=== PATIENT | female | born 1990 | race Caucasian/White ===

== ENCOUNTER 2023-04-19 15:40 | Emergency (ER) | payer MEDICAID, SELFPAY ==
[2023-04-19 15:47] VITALS: BP 122/72; PULSE 97; O2SAT 99
== END 2023-04-19 17:17 | disposition left against medical advice (07) ==
PROVIDERS: Emergency Provider Emergency Medicine
DX: S41.102A Unspecified open wound of left upper arm, initial encounter (principal); X58.XXXA Exposure to other specified factors, initial encounter; Y93.9 Activity, unspecified; Y92.9 Unspecified place or not applicable; Y99.9 Unspecified external cause status

== ENCOUNTER 2023-04-25 05:20 | Emergency (ER) | payer MEDICAID, SELFPAY ==
[2023-04-25] VITALS (7 sets, daily range): BP systolic 107–135; BP diastolic 52–74; PULSE 58–89; RESP 12–18; TEMP 36.2–36.3; O2SAT 95–98; BMI 18.8
--- NOTE | ~2023-04-25 | XR_ITS ---
EXAMINATION: XR LUMBOSACRAL SPINE CLINICAL INFORMATION: Trauma, pain, tenderness. COMPARISON: None available. TECHNIQUE: Three views of the lumbosacral spine. FINDINGS: The lumbar vertebra have normal height and alignment. No evidence of vertebral compression fracture or pars interarticularis defect. The disc spaces are maintained. No endplate erosions or lytic lesions. Sacroiliac joints are normal. There is generalized prominence of fecal material within the colon to level the rectum. Query if there is any history of constipation. XR/XR lumbar spine 2-3V IMPRESSION: * Normal lumbosacral spine. * Incidentally noted is moderate to large amount of fecal material within the colon. Correlate for any clinical symptoms of constipation.
--- NOTE | 2023-04-25 05:47 | PC.NURSE ---
pt biba from an apartment complex where she reports she had been visiting a friend. pt reports she was unable to stand any longer and reports falling down 2 flights of stairs. pt reports middle and lower back pain after fall. ems placed c collar on pt. pt reports using heroin and cocaine hours ago prior to admission. pt lethargic but wakes to name. pt noted to have bilateral forearm wounds due to using xylazine. pt reports she is not being treated for these wounds.
[2023-04-25 09:23] LABS: MANUAL DIFF FLAG NO
[2023-04-25 09:25] LABS: Basophils Percent Auto 0.2 % (0-2); Eosinophils Absolute Auto 0.1 X10*3/uL (0.0-0.4); Eosinophils Percent Auto 1.4 % (0-4); Hematocrit 32.9 % (37.0-47.0); Hemoglobin 10.5 g/dl (12.0-16.0); Imm Gran Abs Auto 0.01 X10*3/uL (0.00-0.03); Imm Gran Pct Auto 0.2 % (0.0-0.4); Lymphocytes Absolute Auto 2.3 X10*3/uL (1.2-4.9); Lymphocytes Percent Auto 34.5 % (20-40); Mean Corpuscular HGB Conc 31.9 g/dl (31.0-35.0); Mean Corpuscular Hemoglobin 25.1 pg (27.0-33.0); Mean Corpuscular Volume 78.5 fL (80.0-98.0); Mean Platelet Volume 9.1 fL (9.4-12.3); Monocytes Absolute Auto 0.4 X10*3/uL (0.1-1.2); Monocytes Percent Auto 5.8 % (2-11); Neutrophils Absolute Auto 3.8 x10*3/uL (2.0-8.3); Neutrophils Percent Auto 57.9 % (45-73); Platelet Count 379 X10*3/uL (160-400); Red Blood Count 4.19 X10*6/uL (4.20-5.50); Red Cell Distribution Width 15.9 % (11.0-16.0); White Blood Count 6.6 X10*3/uL (4.8-10.8)
[2023-04-25 09:29] LABS: INTERNATIONAL NORM RATIO 1.1 (0.9-1.1); Prothrombin Time 12.8 SEC (11.1-13.3)
[2023-04-25 09:40] LABS: Alanine Aminotransferase 11 U/L (0-31); Albumin Level 3.5 g/dL (3.5-5.0); Alkaline Phosphatase 68 U/L (39-117); Anion Gap 11 (12-20); Aspartate Amino Transferase 18 U/L (5-31); Bilirubin Direct < 0.2 mg/dL (0.0-0.5); Bilirubin Total 0.2 mg/dL (0.0-1.0); Blood Urea Nitrogen 13 mg/dL (9-16); Calcium 8.9 mg/dL (8.4-10.2); Carbon Dioxide 26 mmol/L (22-29); Chloride 106 mmol/L (96-108); Creatinine Clr Calc Pharmacy 110.1; Estimated Glomerular Filt Rate > 60; Glucose Random 89 mg/dL (60-115); Magnesium 1.8 mg/dL (1.6-2.6); Potassium 3.9 mmol/L (3.3-5.1); Sodium 139 mmol/L (135-145); Total Protein 7.5 g/dL (6.5-8.0)
[2023-04-25 09:50] LABS: Ethanol < 10 mg/dL; HCG Quantitative < 2 mIU/mL
--- NOTE | 2023-04-25 10:18 | ED_ITS ---
HPI - General Adult General Chief complaint: Back Pain/Injury Stated complaint: back pain Time Seen by Provider: 04/25/23 06:56 History of Present Illness HPI narrative: The patient is a 32-year-old woman who admits to using IV drugs including heroin, cocaine, and xylazine. Apparently she was at a friend's apartment last night. She says that she fell down stairs in the stairwell injuring her lower back. An ambulance was called because she was having a lot of pain in her lower back. She has a lot of chronic wounds on her forearms from her drug use. She has had no fevers. Related Data Allergies Allergy/AdvReac Type Severity Reaction Status Date / Time No Known Allergies Allergy Verified 04/25/23 05:38 Review of Systems 2 Review of Systems: Yes all other systems are reviewed and are negative [facility] Social History Social History Smoked in Last 30 Days: Yes Use of substances other than those prescribed or required for medical reasons: Yes Substance Use Type: Crack/Cocaine and Heroin Substance Use Frequency: Daily Last Used Substance: Hours (ago) Patient : No Physical Exam ED Vital Signs: Vital Signs - 24 hr 04/25/23 05:39 04/25/23 08:28 04/25/23 14:22 Temperature 97.1 F Pulse Rate 58 71 82 Respiratory Rate 18 16 12 Blood Pressure 135/55 L 116/52 L 109/67 Pulse Oximetry 98 95 96 Oxygen Delivery Method Room Air Room Air Room Air 04/25/23 15:49 Temperature 97.2 F Pulse Rate 72 Respiratory Rate 16 Blood Pressure 107/65 Pulse Oximetry 97 Oxygen Delivery Method BMI result Body Mass Index 18.8 Const Other: The patient is a somnolent, very chronically ill-appearing 32-year-old. She has extensive scars and wounds to her forearms. She was quite somnolent initially and they required a significant amount of stimulation to arouse her. When aroused she was awake with a clear mental status but she would fall asleep quite quickly. HENMT Other: The appearance of the face and the mouth were unremarkable. Mucous membranes moist. The Eyes Other: Pupils round equal, conjunctivae clear, extraocular movements intact Neck Other: No cervical adenopathy, no neck swelling. Resp Other: Lungs are clear bilaterally. Cardio Other: The patient has regular rate rhythm with no murmur. GI Other: Abdomen is soft and nontender Back/Spine/Pelvis Other: The appearance of the back is unremarkable. She has diffuse lower back tenderness with palpation but no step-off. No bruising. No signs of injury. Skin Other: The patient has extensive chronic skin changes to the forearms consistent with old wounds from IV drug use. Neuro Other: The patient was sleepy but arousable. Cranial nerves are intact. She is able to move all of her extremities symmetrically. She was able to walk steadily. She seems quite fatigued but otherwise neurologically intact. Extrem Other: Both forearms have extensive skin changes consistent with previous IV drug use. No acute erythematous changes to suggest an acute skin infection however. There is good range of motion of all the joints of the extremities. Medical Decision Making Medical Decision Making [facility] Narrative: The patient is a 32-year-old female with a long history of IV drug use. She admits to having used heroin and cocaine and xylazine. Her chief complaint was low back pain after having fallen down some stairs. She was not showing signs of significant trauma. Her back shows no bruising. A lumbar spine x-ray is negative. The patient was somnolent for a long time but was eventually more awake and interview oval. She was also ultimately able to walk to the bathroom. I do not feel that she has any neurological findings in her lower extremities that would suggest any neurosurgical problem with her lower back. She has a normal white count differential. She is not tachycardic. There is no signs of significant infection or sepsis. I felt the patient was medically clear for evaluation by the care team. Patient is requesting assistance with detox. Specifically the patient was interested methadone. The patient was not interested in Suboxone. An EKG was done that showed a QTC of 468. The patient was then given 20 mg of oral methadone. She was seen by the the recovery nurse and the patient has been on the phone with [facility] for intake and the plan will be for her to go there at 21:00 tonight. Apparently she will go by Dieter noel Lab Data 04/25/23 09:18 04/25/23 09:18 Labs: Lab Results 04/25/23 04/25/23 Range/Units 09:18 10:58 WBC 6.6 (4.8-10.8) X10*3/uL RBC 4.19 L (4.20-5.50) X10*6/uL Hgb 10.5 L (12.0-16.0) g/dl Hct 32.9 L (37.0-47.0) % MCV 78.5 L (80.0-98.0) fL MCH 25.1 L (27.0-33.0) pg MCHC 31.9 (31.0-35.0) g/dl RDW 15.9 (11.0-16.0) % Plt Count 379 (160-400) X10*3/uL MPV 9.1 L (9.4-12.3) fL Immature Gran % (Auto) 0.2 (0.0-0.4) % Neut % (Auto) 57.9 (45-73) % Lymph % (Auto) 34.5 (20-40) % [place] % (Auto) 5.8 (2-11) % Eos % (Auto) 1.4 (0-4) % Baso % (Auto) 0.2 (0-2) % Lymph # (Auto) 2.3 (1.2-4.9) X10*3/uL [place] # (Auto) 0.4 (0.1-1.2) X10*3/uL Eos # (Auto) 0.1 (0.0-0.4) X10*3/uL Baso # (Auto) 0.0 (0.0-0.2) X10*3/uL Abs Immat Gran (auto) 0.01 (0.00-0.03) X10*3/uL Absolute Neuts (auto) 3.8 (2.0-8.3) x10*3/uL Absolute Nucleated RBC 0.000 (0.0-0.012) X10*3/uL Nucleated RBC % (auto) 0.0 (0.0-0.2) /100WBC PT 12.8 (11.1-13.3) SEC INR 1.1 (0.9-1.1) Sodium 139 (135-145) mmol/L Potassium 3.9 (3.3-5.1) mmol/L Chloride 106 (96-108) mmol/L Carbon Dioxide 26 (22-29) mmol/L Anion Gap 11 L (12-20) BUN 13 (9-16) mg/dL Creatinine 0.63 (0.5-1.4) mg/dL Estim Creat Clear Calc 110.1 Estimated GFR > 60 Random Glucose 89 (60-115) mg/dL Calcium 8.9 (8.4-10.2) mg/dL Magnesium 1.8 (1.6-2.6) mg/dL Total Bilirubin 0.2 (0.0-1.0) mg/dL Direct Bilirubin < 0.2 (0.0-0.5) mg/dL AST 18 (5-31) U/L ALT 11 (0-31) U/L Alkaline Phosphatase 68 (39-117) U/L Total Protein 7.5 (6.5-8.0) g/dL Albumin 3.5 (3.5-5.0) g/dL Beta HCG, Quant < 2 mIU/mL Ethyl Alcohol < 10 mg/dL Influenza Type A (PCR) NEGATIVE (Negative) Influenza Type B (PCR) NEGATIVE (Negative) RSV RNA Qual (PCR) NEGATIVE (Negative) SARS-CoV-2 RNA (RT-PCR) NEGATIVE (Negative) Discharge Plan Discharge Clinical Impression: Substance use disorder, Strain of lumbar region Patient Disposition: Home, Self-Care Additional Instructions: You have apparently been accepted for detox care at [facility] in [place]. Please go directly to the detox facility. Referrals: [facility] [Outside]
--- NOTE | 2023-04-25 10:29 | MHC.RECOVSUP ---
Met with pt who is here for back pain and GERRI. Pt informs she uses 2 bags of heroin a day IV and is not currently on MAT but was a long time ago, wanting to get back on MTD. Pt informs she was last getting treatment from being [place] [address] 2 months ago and is currently interested in ATS. ATS bed search in process and provider aware.
--- NOTE | 2023-04-25 10:40 | PC.NURSE ---
patient resting quietly in bed, arouses to verbal stimuli. patient respirations equal and unlabored, states she has slight stomach ache, scored 1 on COWS scale. patient has significant wounds to bilat arms from using iv drugs. recovery team contacted and involved with patients case.
[2023-04-25 12:21] LABS: Influenza A PCR NEGATIVE (Negative); Influenza B PCR NEGATIVE (Negative); Resp Syncy Virus RNA Qual PCR NEGATIVE (Negative); SARS COV2 PCR INHOUSE NEGATIVE (Negative)
--- NOTE | 2023-04-25 14:56 | MHC.RECOVRN ---
Pt accepted to [facility] pending phone screen. Awaiting call from intake.
--- NOTE | 2023-04-25 15:55 | ECG_ITS ---
Test Reason : back pain Blood Pressure : / mmHG Vent. Rate : 076 BPM Atrial Rate : 076 BPM P-R Int : 136 ms QRS Dur : 086 ms QT Int : 416 ms P-R-T Axes : 066 061 060 degrees QTc Int : 468 ms Normal sinus rhythm T wave abnormality, consider anterior ischemia Prolonged QT Abnormal ECG No previous ECGs available Referred By: Anthony Bradford Electronically Signed By:Julio C Kumar
--- NOTE | 2023-04-25 16:02 | MHC.RECOVRN ---
Pt currently completing phone screen with [facility], accepted for 9PM admission. Pt reporting withdrawal symptoms including upset stomach, nausea, diaphoresis, hot/cold flashes. Provider aware.
[2023-04-25] MEDS: Prochlorperazine Maleate 5 MG TABLET 10 MG PO (18:32)
[2023-04-25] MEDS: methADONE HCl 20 MG/2 ML ORAL.CONC PO (18:32)
== END 2023-04-25 21:42 | disposition home or self-care (01) ==
PROVIDERS: Emergency Provider Emergency Medicine
DX: S39.012A Strain of muscle, fascia and tendon of lower back, initial encounter (principal); W10.8XXA Fall (on) (from) other stairs and steps, initial encounter; F19.90 Other psychoactive substance use, unspecified, uncomplicated; R40.0 Somnolence; Z20.822 Contact with and (suspected) exposure to COVID-19; Z20.828 Contact with and (suspected) exposure to other viral communicable diseases; Y93.9 Activity, unspecified; Y92.9 Unspecified place or not applicable; Y99.9 Unspecified external cause status
CPT/HCPCS: 0241U; 36415; 72100; 80048; 80076; 80307; 83735; 84702; 85025; 85610; 93005; 99283; 99285

== ENCOUNTER → 2023-04-25 15:55 | Outpatient (BNV) | payer MEDICAID, SELFPAY | PROVIDERS: Emergency Provider Emergency Medicine; Visit Provider Internal Medicine Cardiovascular Disease | DX: I45.81 Long QT syndrome (principal) | CPT/HCPCS: 93010 ==

== ENCOUNTER 2023-07-21 18:39 | Emergency (ER) | payer MEDICAID, SELFPAY ==
--- NOTE | ~2023-07-21 | XR_ITS ---
EXAMINATION: XR FOOT, LEFT CLINICAL INFORMATION: Pain, evaluate for fracture. COMPARISON: None available. TECHNIQUE: AP, lateral, and oblique views of the left foot. FINDINGS: No fractures or subluxation. Diffuse nonspecific soft tissue swelling. No unexpected radiopaque foreign bodies. XR/XR foot LT 2V IMPRESSION: 1. No acute fractures or subluxation. 2. Nonspecific soft tissue swelling.
[2023-07-21 18:48] VITALS: BP 110/74; PULSE 70; O2SAT 99
[2023-07-21 18:49] VITALS: BP 110/68; PULSE 74; RESP 18; TEMP 36.9; O2SAT 98; BMI 22.9
--- NOTE | 2023-07-21 18:51 | ED_ITS ---
HPI - Extremity Problem General Chief complaint: General Medical Stated complaint: severe L foot pain, hx of addiction- infect of arm Time Seen by Provider: 07/21/23 18:51 Source: patient Mode of arrival: EMS Limitations: no limitations History of Present Illness HPI Narrative: Patient IVDA cocaine user with chronic infection in the left forearm which is healing with scabs says that she stopped using drugs for last 2 days noticed pain swelling of the left foot was wearing tight shoes no trauma Related Data Previous Rx's Medication Instructions Recorded cephalexin 500 mg capsule 500 mg PO QID 10 days #40 caps 07/21/23 doxycycline hyclate 100 mg tablet 100 mg PO BID #20 tabs 07/21/23 Allergies Allergy/AdvReac Type Severity Reaction Status Date / Time No Known Allergies Allergy Verified 04/25/23 05:38 Review of Systems 2 Review of Systems: Yes all other systems are reviewed and are negative [facility] Social History Social History Alcohol intake: never Smoked in Last 30 Days: Yes Substance Use Type: Crack/Cocaine, Heroin and IV Drugs Last Used Substance: Days (ago) Advance Directives: No Advance Directives Information Provided: No Physical Exam 2 Vital Signs: Vital Signs: Last Vital Signs Temp 98.0 F 07/21/23 21:01 Pulse 80 07/21/23 21:01 Resp 16 07/21/23 21:01 BP 120/70 07/21/23 21:01 Pulse Ox 99 07/21/23 21:01 O2 Del Method Room Air 07/21/23 21:01 BMI result Body Mass Index 22.9 Appearance: Alert. Oriented X3. No acute distress. Eyes: PERRLA, No Nystagmus ENT: Pharynx normal. Oral Mucosa moist Neck: Normal inspection. Neck supple. CVS: Normal heart rate and rhythm. Pulses normal. Respiratory: No respiratory distress. Equal air entry bilateral, no wheezing/rales/rhonchi Abdomen: Soft and nontender. Bowel sounds are present, no mass palpable, no CVA tenderness Skin: Skin warm and dry. Normal skin color. Normal skin turgor. Extremities: No lower extremity edema. No calf tenderness left forearm with scabs no active signs of infection, left foot soft tissue swelling no open wound neurovascular intact Neuro: Oriented X 3. No motor deficit. No sensory deficit.No cerebellar signs , cranial nerves II-XII intact Medications Administered Discontinued Medications Generic Name Dose Route Start Last Admin Trade Name Juanq PRN Reason Stop Dose Admin Cephalexin HCl 500 mg 07/21/23 19:56 07/21/23 20:25 Cephalexin 500 Mg Capsule PO 07/21/23 19:57 500 mg ONCE ONE Administration Doxycycline Monohydrate 100 mg 07/21/23 19:56 07/21/23 20:25 Doxycycline Monohydrate 100 Mg Capsule PO 07/21/23 19:57 100 mg ONCE ONE Administration Medical Decision Making Medical Decision Making [facility] Narrative: Patient with soft tissue swelling of the left foot likely from standing or lying on the left foot for long time no significant signs of infection x-ray negative labs are stable slight leukocytosis from chronic wound on the left forearm will give a prescription of doxy and cephalexin Differential Diagnosis Differential Diagnoses: The differential diagnosis associated with the presentation includes Cellulitis/fracture/soft tissue swelling Lab Data [facility] Lab Attestation statement: I reviewed the patient's lab results. 07/21/23 19:24 07/21/23 19:24 Labs: Lab Results 07/21/23 Range/Units 19:24 WBC 14.7 H (4.8-10.8) X10*3/uL RBC 4.27 (4.20-5.50) X10*6/uL Hgb 11.2 L (12.0-16.0) g/dl Hct 34.8 L (37.0-47.0) % MCV 81.5 (80.0-98.0) fL MCH 26.2 L (27.0-33.0) pg MCHC 32.2 (31.0-35.0) g/dl RDW 17.6 H (11.0-16.0) % Plt Count 279 D (160-400) X10*3/uL MPV 9.3 L (9.4-12.3) fL Immature Gran % (Auto) 1.0 H (0.0-0.4) % Neut % (Auto) 79.7 H (45-73) % Lymph % (Auto) 14.3 L (20-40) % [place] % (Auto) 4.1 (2-11) % Eos % (Auto) 0.5 (0-4) % Baso % (Auto) 0.4 (0-2) % Lymph # (Auto) 2.1 (1.2-4.9) X10*3/uL [place] # (Auto) 0.6 (0.1-1.2) X10*3/uL Eos # (Auto) 0.1 (0.0-0.4) X10*3/uL Baso # (Auto) 0.1 (0.0-0.2) X10*3/uL Abs Immat Gran (auto) 0.14 H (0.00-0.03) X10*3/uL Absolute Neuts (auto) 11.7 H (2.0-8.3) x10*3/uL Absolute Nucleated RBC 0.000 (0.0-0.012) X10*3/uL Nucleated RBC % (auto) 0.0 (0.0-0.2) /100WBC Sodium 137 (135-145) mmol/L Potassium 4.2 (3.3-5.1) mmol/L Chloride 105 (96-108) mmol/L Carbon Dioxide 27 (22-29) mmol/L Anion Gap 9 L (12-20) BUN 23 H (9-16) mg/dL Creatinine 0.80 (0.5-1.4) mg/dL Estim Creat Clear Calc 83.5 Estimated GFR > 60 Random Glucose 72 (60-115) mg/dL Lactic Acid 1.0 (0.5-2.0) mmol/L Calcium 9.0 (8.4-10.2) mg/dL Total Bilirubin 0.3 (0.0-1.0) mg/dL AST 32 H (5-31) U/L ALT 52 H (0-31) U/L Alkaline Phosphatase 255 H (39-117) U/L C-Reactive Protein 30.01 H (< or = 0.50) mg/dL Total Protein 8.5 H (6.5-8.0) g/dL Albumin 3.5 (3.5-5.0) g/dL Independent Interpretation I performed an independent interpretation of an: Plain X-Ray Radiology Impression Discussion of test interpretation with radiology: I have reviewed the radiologist's reading. Discharge Plan Discharge Clinical Impression: Foot pain, Polysubstance abuse Patient Disposition: Home, Self-Care Instructions: Polysubstance Abuse (ED), Musculoskeletal Pain (ED) Additional Instructions: Stop using drugs Do not stand on your left food for long time Antibiotic as prescribed for to avoid infection Prescriptions: New cephalexin 500 mg capsule 500 mg PO QID 10 Days Qty: 40 0RF doxycycline hyclate 100 mg tablet 100 mg PO BID Qty: 20 0RF Interventions: ED Discharge Assessment Last Done: 07/21/23 21:01 Discharge Date/Time: 07/21/23 21:03
[2023-07-21 19:31] LABS: MANUAL DIFF FLAG NO
[2023-07-21 19:40] LABS: Basophils Absolute Auto 0.1 X10*3/uL (0.0-0.2); Basophils Percent Auto 0.4 % (0-2); Eosinophils Absolute Auto 0.1 X10*3/uL (0.0-0.4); Eosinophils Percent Auto 0.5 % (0-4); Hematocrit 34.8 % (37.0-47.0); Hemoglobin 11.2 g/dl (12.0-16.0); Imm Gran Abs Auto 0.14 X10*3/uL (0.00-0.03); Lymphocytes Absolute Auto 2.1 X10*3/uL (1.2-4.9); Lymphocytes Percent Auto 14.3 % (20-40); Mean Corpuscular HGB Conc 32.2 g/dl (31.0-35.0); Mean Corpuscular Hemoglobin 26.2 pg (27.0-33.0); Mean Corpuscular Volume 81.5 fL (80.0-98.0); Mean Platelet Volume 9.3 fL (9.4-12.3); Monocytes Absolute Auto 0.6 X10*3/uL (0.1-1.2); Monocytes Percent Auto 4.1 % (2-11); Neutrophils Absolute Auto 11.7 x10*3/uL (2.0-8.3); Neutrophils Percent Auto 79.7 % (45-73); Platelet Count 279 X10*3/uL (160-400); Red Blood Count 4.27 X10*6/uL (4.20-5.50); Red Cell Distribution Width 17.6 % (11.0-16.0); White Blood Count 14.7 X10*3/uL (4.8-10.8)
[2023-07-21 19:47] LABS: Alanine Aminotransferase 52 U/L (0-31); Albumin Level 3.5 g/dL (3.5-5.0); Alkaline Phosphatase 255 U/L (39-117); Anion Gap 9 (12-20); Aspartate Amino Transferase 32 U/L (5-31); Bilirubin Total 0.3 mg/dL (0.0-1.0); Blood Urea Nitrogen 23 mg/dL (9-16); C Reactive Protein 30.01 mg/dL (< or = 0.50); Carbon Dioxide 27 mmol/L (22-29); Chloride 105 mmol/L (96-108); Creatinine Clr Calc Pharmacy 83.5; Estimated Glomerular Filt Rate > 60; Glucose Random 72 mg/dL (60-115); Potassium 4.2 mmol/L (3.3-5.1); Sodium 137 mmol/L (135-145); Total Protein 8.5 g/dL (6.5-8.0)
[2023-07-21] MEDS: Doxycycline Monohydrate 100 MG CAPSULE PO (20:25)
[2023-07-21] MEDS: cephALEXin 500 MG CAPSULE PO (20:25)
--- NOTE | 2023-07-21 20:40 | PC.NURSE ---
pt medicated per mar, tolerated well with water. pt noted to have multiple healing scabs to the left forearm and small healing scabs to the right forearm.
[2023-07-21 21:01] VITALS: BP 120/70; PULSE 80; RESP 16; TEMP 36.7; O2SAT 99
== END 2023-07-21 21:03 | disposition home or self-care (01) ==
PROVIDERS: Emergency Provider Internal Medicine
DX: M79.672 Pain in left foot (principal); F19.10 Other psychoactive substance abuse, uncomplicated; D72.829 Elevated white blood cell count, unspecified
CPT/HCPCS: 36415; 73620; 80053; 83605; 85025; 86140; 87040; 99283; 99284

== ENCOUNTER 2024-05-12 09:36 | Inpatient (IN) | payer MEDICAID, SELFPAY ==
[2024-05-12] VITALS (31 sets, daily range): BP systolic 79–119; BP diastolic 37–78; PULSE 82–123; RESP 18–31; TEMP 36.4–37; O2SAT 92–94; BMI 21.5
--- NOTE | ~2024-05-12 | MR_ITS ---
CLINICAL HISTORY: epidural abscess MR LUMBAR SPINE WITH AND WITHOUT GADOLINIUM Comparison: MR - MR LUMBAR SPINE WO CON - 05/12/24 16:[address]/SR - CT ABDOMEN PELVIS WO IV CON - 05/12/24 13:29 EST Findings: There is significant motion artifact limiting evaluation. No scoliosis or spondylolisthesis. No acute fracture or pathologic bone lesion. Cauda equina and conus medullaris are grossly unremarkable. T12-L1: Unremarkable. L1-L2: Unremarkable. L2-L3: Unremarkable. L3-L4: Unremarkable. L4-L5: Shallow disc displacement. Facet arthrosis. No significant spinal stenosis. Mild bilateral neural foraminal stenoses. L5-S1: Shallow disc displacement. Facet arthrosis. No significant spinal stenosis. Moderate bilateral neural foraminal stenoses. Retroperitoneum grossly unremarkable. Paraspinous musculature intact. IMPRESSION: 1. Image degradation secondary to significant motion artifact. 2. No definite wall enhancing prevertebral or epidural fluid collection to suggest the presence of an abscess. 3. No evidence for discitis-osteomyelitis. 4. No large disc herniation or spinal stenosis. 5. Facet degenerative changes in the lower lumbar spine associated with stenoses, especially L5-S1. This document has been electronically signed by: Ashleigh Young DO on 05/12/2024 21:20:21
--- NOTE | ~2024-05-12 | MR_ITS ---
CLINICAL HISTORY: Sepsis, back pain, IV drug abuse, R O epidural abs MR LUMBAR SPINE WITHOUT GADOLINIUM Comparison: CT/SR - CT ABDOMEN PELVIS WO IV CON - 05/12/24 13:29 EST Findings: Valve Fitter tomograms were obtained however only a sagittal T1 FLAIR sequence was performed as the patient refused further imaging. No large epidural signal alteration. No significant spinal stenosis. No adjacent endplate destructive changes or signal alteration. Normal disc signal. IMPRESSION: Incomplete study as above. The study is nondiagnostic for an epidural abscess. This document has been electronically signed by: Ashleigh Young DO on 05/12/2024 18:08:08
--- NOTE | ~2024-05-12 | XR_ITS ---
CLINICAL HISTORY: c line placement 1 view chest x-ray Comparison: CR - XR CHEST 1V - 05/12/24 14:59 EST Findings: Multiple bilateral airspace opacities with lower lobe predominance, right greater than left, are again seen. There is a small right pleural effusion. No pneumothorax. Heart size is normal. Stable cardiomediastinal silhouette and bony thorax. IMPRESSION: Right central line tip is near the atriocaval junction. This document has been electronically signed by: Ashleigh Young DO on 05/12/2024 19:38:55
--- NOTE | ~2024-05-12 | XR_ITS ---
CLINICAL HISTORY: Pneumonia, coughing 1 view chest x-ray Comparison: None Findings: Patchy bilateral airspace densities. Probable trace effusions. No pneumothorax. Normal size heart. No acute fracture. IMPRESSION: Multifocal pneumonia. Follow-up recommended to ensure resolution. This document has been electronically signed by: Rik Casas MD on 05/12/2024 15:35:33
--- NOTE | ~2024-05-12 | CT_ITS ---
CLINICAL HISTORY: Diffuse abdominal pain CT abdomen and pelvis without contrast Comparison: None Findings: There is ill-defined patchy bibasilar consolidation suggestive of multifocal pneumonia. Trace right effusion. The unenhanced liver, spleen, gallbladder, adrenal glands and pancreas are unremarkable. Evaluation is limited based upon a relative paucity of mesenteric fat. No bowel obstruction. There is gas seen throughout mildly distended colon. There is mild engorgement of the vasa recta. No pneumatosis or free air. Uterus and adnexa are unremarkable. No acute osseous abnormality. Impression: Possible bibasilar pneumonia. Follow-up recommended to ensure resolution. Findings within the abdomen and pelvis are suggestive of enteritis. There is no free air, pneumatosis or abscess. This document has been electronically signed by: Rik Casas MD on 05/12/2024 13:58:21
--- NOTE | 2024-05-12 10:09 | ECG_ITS ---
Test Reason : TACHYCARDIA Blood Pressure : */* mmHG Vent. Rate : 123 BPM Atrial Rate : 123 BPM P-R Int : 114 ms QRS Dur : 90 ms QT Int : 364 ms P-R-T Axes : 71 64 40 degrees QTcB Int : 521 ms Sinus tachycardia Otherwise normal ECG When compared with ECG of 25-Apr-2023 16:17, Vent. rate has increased by 47 bpm T wave inversion no longer evident in Anterior leads Referred By: Generic ED Physician Electronically Signed By: JANE LEE MD
[2024-05-12 10:29] LABS: Hematocrit 35.1 % (37.0-47.0); Hemoglobin 11.8 g/dl (12.0-16.0); Mean Corpuscular HGB Conc 33.6 g/dl (31.0-35.0); Mean Corpuscular Hemoglobin 25.7 pg (27.0-33.0); Mean Corpuscular Volume 76.3 fL (80.0-98.0); Red Cell Distribution Width 16.3 % (11.0-16.0)
[2024-05-12 10:30] LABS: White Blood Count 12.1 X10*3/uL (4.8-10.8)
[2024-05-12 10:31] LABS: PLT ABN DIST 1; Platelet Count 41 X10*3/uL (160-400)
[2024-05-12 10:45] LABS: Alanine Aminotransferase 14 U/L (0-31); Albumin Level 2.2 g/dL (3.5-5.0); Alkaline Phosphatase 218 U/L (39-117); Anion Gap 26 (12-20); Aspartate Amino Transferase 79 U/L (5-31); Bilirubin Direct 0.2 mg/dL (0.0-0.5); Bilirubin Total 0.6 mg/dL (0.0-1.0); Blood Urea Nitrogen 69 mg/dL (9-16); Calcium 7.4 mg/dL (8.4-10.2); Carbon Dioxide 14 mmol/L (22-29); Chloride 98 mmol/L (96-108); Creatinine Clr Calc Pharmacy 21.4; Estimated Glomerular Filt Rate 16; Ethanol 13 mg/dL; Glucose Random 116 mg/dL (60-115); Sodium 133 mmol/L (135-145); Total Protein 8.4 g/dL (6.5-8.0)
[2024-05-12 10:46] LABS: Band Neutrophils Percent 5 % (3-5); Lymphocytes Absolute Manual 0.4 X10*3/uL (1.2-4.9); Lymphocytes Percent Manual 3 % (20-40); Monocytes Absolute Manual 0.2 X10*3/uL (0.1-1.2); Monocytes Percent Manual 2 % (2-11); Neutrophils Absolute Manual 11.5 X10*3/uL (2.0-8.3); Neutrophils Percent Manual 90 % (45-73); RBC Morphology NOTED
[2024-05-12 10:47] LABS: Burr Cells 1+ (0-2) /OIF; Large Platelet PRESENT; Microcytosis 1+ (5-14) /OIF; Ovalocytes 1+ (5-14) /OIF; Platelet Estimate DECREASED (NORMAL); Platelet Morphology Comment NOTED; Toxic Vacuolation PRESENT
[2024-05-12 10:49] LABS: Troponin-I High Sensitivity 15.3 ng/L (<3.5-17.0)
--- NOTE | 2024-05-12 10:57 | PC.NURSE ---
patient presented to the ED via EMS. patient noted to be weak/lethargic. states that she feels unwell x3days endorses chest pain, sob, vomiting and fevers. patient states she has not taken her methadone since yesterday, and has not used heroin in 3 days due to not feeling good. patient showed this RN extensive wound from IVDU on left arm, mal odorous. IV access difficult, #22 in patients right hand, blood samples obtained with cultures from two different sites. patient states that her feet hurt, socks removed by this RN patient has mottling to bilat feet, positive pedal pulses, patient states she noticed the discoloration today- denies trauma or exposure to cold temperatures. patient changed into hospital attire, placed on phototypesetting equipment monitor, noted to be in sinus tach 120s, afebrile. no noted other open areas with sores or wounds, patient skin dry, scarred from previous IVDU. patient states she requests detox. patient states that she thinks she has sepsis, my friend has the same symptoms and thats what she had .
--- NOTE | 2024-05-12 11:15 | ED_ITS ---
HPI - General Adult General Chief complaint: General Medical Stated complaint: dizziness chest tightness Time Seen by Provider: 05/12/24 10:28 Source: patient Mode of arrival: ambulatory Limitations: no limitations History of Present Illness ED Provider: DR. Hooker HPI narrative: 33-year-old female, currently homeless history of IV drug abuse came in for evaluation of generalized weakness, subjective fever and chills. Patient also is complaining of diffuse abdominal pain with no nausea, no vomiting. Patient with history of bacteremia in the past and she thinks that she has bacteria in her bloodstream. Patient is also complaining of bilateral lower extremity purple discoloration with no pain. Patient also is complaining of a low back pain patient confirm history of chronic back pain. Related Data Home Medications ?Medication ?Instructions ?Recorded ?Confirmed methadone 10 mg/mL oral 195 mg PO DAILY 05/12/24 05/12/24 concentrate (Methadone Intensol) Previous Rx's ?Medication ?Instructions ?Recorded cephalexin 500 mg capsule 500 mg PO QID 10 days #40 caps 07/21/23 doxycycline hyclate 100 mg tablet 100 mg PO BID #20 tabs 07/21/23 Allergies Allergy/AdvReac Type Severity Reaction Status Date / Time quetiapine [From Seroquel] AdvReac Dizziness Verified 05/12/24 10:06 Review of Systems 2 Review of Systems: All other systems are reviewed and are negative Constitutional: Reports as per HPI and Reports no additional constitutional complaints Eyes: Reports as per HPI and Reports no additional eye complaints Reports system reviewed and no additional complaints, except as documented Cardiovascular: Reports as per HPI and Reports no additional cardiovascular complaints Respiratory: Reports as per HPI and Reports no additional respiratory complaints Gastrointestinal: Reports as per HPI and Reports no additional gastrointestinal complaints Genitourinary: Reports no additional female genitourinary complaints Musculoskeletal: Reports no additional musculoskeletal complaints Skin/Breast: Reports system reviewed and no additional complaints, except as docu Psychiatric: Reports no additional psychiatric complaints Endocrine: Reports no additional endocrine complaints Hematologic/Lymphatic: Reports no additional hematologic/lymphatic complaints Allergic/Immunologic: Reports no additional allergic/immunologic complaints Reports system reviewed and no additional complaints, except as documented and Reports Abnormal speech present [facility] Social History Social History Alcohol intake: never Use of substances other than those prescribed or required for medical reasons: Yes Substance Use Type: Heroin Substance Use Frequency: Daily Last Used Substance: Days (ago) Any prior treatment program specific to substance use: Yes Advance Directives: No Advance Directives Information Provided: No Do you have a plan to hurt others: No Plan Physical Exam ED Vital Signs: Vital Signs - 24 hr 05/12/24 10:04 05/12/24 11:51 05/12/24 13:39 Temperature 97.5 F 97.5 F Pulse Rate 123 H 114 H 116 H Respiratory Rate 20 31 H 20 Blood Pressure 91/51 L 96/53 L 88/56 L Pulse Oximetry 94 94 93 Oxygen Delivery Method Room Air Room Air Room Air BMI result Body Mass Index 21.5 Vital signs have been reviewed and appear to be correct. Blood pressure elevated. Heart rate elevated. Respiratory rate normal. Temperature normal. Oxygen saturation normal. Appearance: Disheveled, Alert. Oriented X3. No acute distress. Head: Normal external exam. Normocephalic. Atraumatic. No Sinclair signs noted. No raccoon eyes noted Eyes: PERRLA. EOMI. Conjunctiva and sclera normal. Eyelids normal. ENT: TM's Normal. Pharynx normal. Uvula midline. Moist mucous membranes. No trismus noted. No drooling noted. No muffled voice noted. Neck: Normal inspection. Neck supple. FROM. No adenopathy. Thyroid Normal. No meningeal signs. No neck mass noted. CVS: Normal heart rate and rhythm. Heart sound normal. No murmurs noted. Pulses normal throughout. Respiratory: No respiratory distress. Painless inspiration. Breath sounds normal. No wheezes/rales/rhonchi noted. Chest nontender. No accessory muscle usage noted or decreased air movement noted. Abdomen: Soft and nontender. Bowel sounds normal in all 4 quadrants. No distention noted. No organomegaly noted. No visible injury noted. Back: No CVA tenderness. Full range of motion noted. Skin: Skin warm and dry. Normal skin color. Normal skin turgor. No rashes/lesions/lacerations noted. Extremities: Bilateral lower extremity: Unkempt, patent PT and DP bilaterally, cap refill is less than 2 seconds, warm to touch. Neuro: Oriented X 3. Cranial nerve exam: II-XII are grossly intact No motor deficit. No sensory deficit. Reflexes normal. Course Reevaluation(s) Reevaluation #1: Infection with sepsis. In this IV drug abuse patient who at risk for epidural abscess especially with severe low back pain patient is in for MRI. Patient meet criteria for septic shock with dropping blood pressure after received 1.7 CC of normal saline will start the patient on Levophed. CT abdomen pelvis reveals showed bilateral bibasilar pneumonia patient is covered with Zosyn and doxycycline. TRICE continue with hydration, CT abdomen pelvis ruled out obstructive uropathy, patient still makes urine will obtain a sample. Time: 14:32 Reevaluation #2: FOCUSED EXAM: NEURO EXAM IS UNCHANGED, received brought coverage antibiotic. Still awaiting for MRI. Case signed out to Dr. Gomez Time: 16:00 Medications Administered Discontinued Medications Generic Name Dose Route Start Last Admin Trade Name Freq PRN Reason Stop Dose Admin Sodium Chloride 1,755 mls @ 1,755 mls/hr 05/12/24 11:12 05/12/24 13:39 Ns 30 ml/kg infuse over 1 hr (1755 ml) 05/12/24 12:11 Infused IV Infusion .Q1H STA Piperacillin Sod/Tazobactam 50 mls @ 100 mls/hr 05/12/24 11:12 05/12/24 12:05 Sod 3.375 gm/ Sodium Chloride IV 05/12/24 11:41 Infused ONCE ONE Infusion Methadone HCl 195 mg 05/12/24 11:20 05/12/24 12:03 Methadone Hcl 20 Mg/2 Ml Oral.Conc PO 05/12/24 11:21 195 mg ONCE ONE Administration Ondansetron HCl 4 mg 05/12/24 12:13 05/12/24 12:15 Ondansetron Hcl 4 Mg/2 Ml Vial IVPUSH 05/12/24 12:14 4 mg ONCE ONE Administration Ondansetron HCl 4 mg 05/12/24 12:27 05/12/24 13:00 Ondansetron Hcl 4 Mg/2 Ml Vial IVPUSH 05/12/24 12:28 Not Given ONCE ONE Medical Decision Making Differential Diagnosis Differential Diagnoses: The differential diagnosis associated with the presentation includes (Epidural abscess, cellulitis, pneumonia, sepsis, UTI, pyelonephritis.) Admission/Observation Consideration of admission/observation: Escalation of care including admission/observation considered Lab Data MDM Lab Attestation statement: I reviewed the patient's lab results. 05/12/24 10:11 05/12/24 10:11 Labs: Lab Results 05/12/24 05/12/24 Range/Units 10:11 12:25 WBC 12.1 H (4.8-10.8) X10*3/uL RBC 4.60 (4.20-5.50) X10*6/uL Hgb 11.8 L (12.0-16.0) g/dl Hct 35.1 L (37.0-47.0) % MCV 76.3 L (80.0-98.0) fL MCH 25.7 L (27.0-33.0) pg MCHC 33.6 (31.0-35.0) g/dl RDW 16.3 H (11.0-16.0) % Plt Count 41 L D (160-400) X10*3/uL MPV Not Reportable Immature Gran % (Auto) Cancelled Neut % (Auto) Cancelled Lymph % (Auto) Cancelled [place] % (Auto) Cancelled Eos % (Auto) Cancelled Baso % (Auto) Cancelled Lymph # (Auto) Cancelled [place] # (Auto) Cancelled Eos # (Auto) Cancelled Baso # (Auto) Cancelled Abs Immat Gran (auto) Cancelled Absolute Neuts (auto) Cancelled Absolute Nucleated RBC 0.000 (0.0-0.012) X10*3/uL Nucleated RBC % (auto) 0.0 (0.0-0.2) /100WBC Neutrophils % (Manual) 90 H (45-73) % Band Neutrophils % 5 (3-5) % Lymphocytes % (Manual) 3 L (20-40) % Monocytes % (Manual) 2 (2-11) % Abs Neuts (Manual) 11.5 H (2.0-8.3) X10*3/uL Lymphocytes # (Manual) 0.4 L (1.2-4.9) X10*3/uL Monocytes # (Manual) 0.2 (0.1-1.2) X10*3/uL Toxic Vacuolation PRESENT Platelet Estimate DECREASED (NORMAL) Large Platelets PRESENT Plt Morphology Comment NOTED RBC Morphology NOTED Microcytosis 1+ (5-14) /OIF Ovalocytes 1+ (5-14) /OIF [place] Cells 1+ (0-2) /OIF Sodium 133 L (135-145) mmol/L Potassium 5.0 (3.3-5.1) mmol/L Chloride 98 (96-108) mmol/L Carbon Dioxide 14 L (22-29) mmol/L Anion Gap 26 H (12-20) BUN 69 H (9-16) mg/dL Creatinine 3.35 H (0.5-1.4) mg/dL Estim Creat Clear Calc 21.4 Estimated GFR 16 Random Glucose 116 H (60-115) mg/dL Lactic Acid 3.3 H* (0.5-2.0) mmol/L Calcium 7.4 L D (8.4-10.2) mg/dL Total Bilirubin 0.6 (0.0-1.0) mg/dL Direct Bilirubin 0.2 (0.0-0.5) mg/dL AST 79 H (5-31) U/L ALT 14 (0-31) U/L Alkaline Phosphatase 218 H (39-117) U/L Troponin I High Sens 15.3 (<3.5-17.0) ng/L Total Protein 8.4 H (6.5-8.0) g/dL Albumin 2.2 L (3.5-5.0) g/dL Beta HCG, Quant < 2 mIU/mL Ethyl Alcohol 13 mg/dL Independent Interpretation I performed an independent interpretation of an: CT Scan (Abdomen and pelvis:Possible bibasilar pneumonia. Follow-up recommended to ensure resolution. Findings within the abdomen and pelvis are suggestive of enteritis. There is no free air, pneumatosis or abscess.) Radiology Impression Discussion of test interpretation with radiology: I have reviewed the radiologist's reading. Discharge Plan Discharge Clinical Impression: TRICE (acute kidney injury), Pneumonia, Sepsis, Severe low back pain Patient Disposition: Still a Patient Prescriptions: No Action cephalexin 500 mg capsule 500 mg PO QID 10 Days Qty: 40 0RF doxycycline hyclate 100 mg tablet 100 mg PO BID Qty: 20 0RF methadone [Methadone Intensol] 10 mg/mL Concentrate 195 mg PO DAILY Print Language: Serbian
[2024-05-12] MEDS: Piperacillin Sodium/Tazobactam 3.375 GM in 0.9 % Sodium Chloride 50 ML IV (11:30)
[2024-05-12] MEDS: SODIUM CHLORIDE 1755 ML IV (11:30)
--- NOTE | 2024-05-12 11:40 | PC.NURSE ---
patient methadone verification done by this RN, [facility], 195mg last dose 05/11/24, verified by Kaylyn. info faxed to pharmacy, med info given to ED provider
--- NOTE | 2024-05-12 11:56 | HE.PHANOTE ---
Re MEthadone Received confirmation from nursing. Patient gets 195mg from [facility]. Last dose was yesterday 05/11/24
[2024-05-12] MEDS: methADONE HCl 20 MG/2 ML ORAL.CONC 195 MG PO (12:03)
[2024-05-12] MEDS: ondansetron HCL 4 MG/2 ML VIAL IVPUSH ×2 (12:15→16:04)
[2024-05-12 13:12] LABS: Lactic Acid 3.3 mmol/L (0.5-2.0)
[2024-05-12 13:21] LABS: HCG Quantitative < 2 mIU/mL
[2024-05-12 14:28] LABS: Reflex Lactate? Lactic Acid Added
[2024-05-12] MEDS: Norepinephrine Bitartrate/D5W 8 MG/250 ML PLAST..BAG 5.48 MG IVCONT (14:47)
[2024-05-12 15:05] LABS: Appearance Urine Turbid; Color Urine BROWN; Glucose Urine UA Negative (Negative); Leukocyte Esterase Urine Negative (Negative); Specific Gravity - Urine >= 1.030 (1.005-1.025); UMIC TRIGGER UACC YES; Urine Blood Negative (Negative)
[2024-05-12 15:08] LABS: UPreg QC Valid YES; Urine Pregnancy NEGATIVE (NEGATIVE)
--- NOTE | 2024-05-12 15:12 | PC.NURSE ---
patient was able to urinate about 50 cc brown /tea colored urine.
--- NOTE | 2024-05-12 15:13 | PC.NURSE ---
patient noted to be hypotensive, lephophed started at 0.05mcg and titrated to 0.07mcg, patient tolerating well, patient bp coming up nicely, patient asymptomatic. patient only complaint is back pain.
[2024-05-12 15:16] LABS: Amphetamine Screen Urine Not Detected (Not Detect); Barbiturates, Urine Not Detected (Not Detect); Benzodiazepines Screen Urine Not Detected (Not Detect); Buprenorphine Scr Not Detected (Not Detect); Cannabinoid Screen Urine Not Detected (Not Detect); Cocaine Screen Urine POSITIVE (Not Detect); Fentanyl, urine POSITIVE (Not Detect); Methadone Screen, Urine Positive (Not Detect); Opiate Screen Urine Not Detected (Not Detect); Oxycodone Screen Urine Not Detected (Not Detect); Phencyclidine Screen Urine Not Detected (Not Detect)
[2024-05-12 15:25] LABS: Bacteria Urine 4+ (None Seen); Hyaline Casts Urine >20 /LPF (0-2); RBC Urine 0-2 /HPF (0-2); Squamous Epithelial Cell Urine >20 /HPF (0-2); UACC Culture Trigger YES
[2024-05-12 15:27] LABS: ~Lactic Acid-LAB USE ONLY 5.2 mmol/L (0.5-2.0)
[2024-05-12] MEDS: 0.9 % Sodium Chloride 1,000 ML 999 ML IV ×2 (15:31→17:21)
--- NOTE | 2024-05-12 15:31 | PC.NURSE ---
patient remains hypotensive, normal saline bolus started
--- NOTE | 2024-05-12 15:56 | MHC.EDTECH ---
This pct assumed care of Patient at 1500 ,vitals taken ,Patient belongings list dont .
--- NOTE | 2024-05-12 16:06 | PC.NURSE ---
patient endorses nausea, patient medicated per MAR. this RN is getting patient ready for transport to MRI.
[2024-05-12 16:55] LABS: Reflex Lactate? 2 Y
[2024-05-12] MEDS: vancomycin HCL 1,500 MG in 0.9 % Sodium Chloride 500 ML 333.33 MG IV (17:46)
--- NOTE | 2024-05-12 18:06 | PC.NURSE ---
patient unable to tolerate MRI due to pain, patient remains hypotensive on levophed gtt. ED attending placed central line, xray ordered for placement. patient medicated per JUN.
--- NOTE | 2024-05-12 18:56 | ED_ITS ---
HPI - General Adult General Chief complaint: General Medical Stated complaint: dizziness chest tightness Time Seen by Provider: 05/12/24 10:28 Source: patient Mode of arrival: ambulatory Limitations: no limitations Related Data Home Medications ?Medication ?Instructions ?Recorded ?Confirmed methadone 10 mg/mL oral 195 mg PO DAILY 05/12/24 05/12/24 concentrate (Methadone Intensol) Previous Rx's ?Medication ?Instructions ?Recorded cephalexin 500 mg capsule 500 mg PO QID 10 days #40 caps 07/21/23 doxycycline hyclate 100 mg tablet 100 mg PO BID #20 tabs 07/21/23 Allergies Allergy/AdvReac Type Severity Reaction Status Date / Time quetiapine [From Seroquel] AdvReac Dizziness Verified 05/12/24 10:06 [facility] Social History Social History Alcohol intake: never Use of substances other than those prescribed or required for medical reasons: Yes Substance Use Type: Heroin Substance Use Frequency: Daily Last Used Substance: Days (ago) Any prior treatment program specific to substance use: Yes Advance Directives: No Advance Directives Information Provided: No Do you have a plan to hurt others: No Plan Physical Exam ED Vital Signs: Vital Signs - 24 hr 05/12/24 10:04 05/12/24 11:51 05/12/24 13:39 Temperature 97.5 F 97.5 F Pulse Rate 123 H 114 H 116 H Respiratory Rate 20 31 H 20 Blood Pressure 91/51 L 96/53 L 88/56 L Pulse Oximetry 94 94 93 Oxygen Delivery Method Room Air Room Air Room Air Oxygen Flow Rate 05/12/24 14:31 05/12/24 14:47 05/12/24 14:59 Temperature 97.8 F Pulse Rate 118 H 120 H 117 H Respiratory Rate 18 Blood Pressure 89/48 L 89/48 L 94/60 Pulse Oximetry 94 Oxygen Delivery Method Room Air Oxygen Flow Rate 05/12/24 15:08 05/12/24 15:09 05/12/24 15:21 Temperature Pulse Rate 118 H 117 H 118 H Respiratory Rate Blood Pressure 94/57 L 94/57 L 83/53 L Pulse Oximetry Oxygen Delivery Method Oxygen Flow Rate 05/12/24 15:28 05/12/24 15:41 05/12/24 15:50 Temperature 97.8 F Pulse Rate 118 H 115 H 114 H Respiratory Rate 27 H Blood Pressure 93/56 L 95/55 L 107/55 L Pulse Oximetry 93 Oxygen Delivery Method Nasal Cannula Oxygen Flow Rate 1 05/12/24 16:29 05/12/24 16:44 05/12/24 16:47 Temperature Pulse Rate 113 H 105 H 120 H Respiratory Rate Blood Pressure 89/51 L 94/67 79/53 L Pulse Oximetry Oxygen Delivery Method Oxygen Flow Rate 05/12/24 16:51 05/12/24 17:16 05/12/24 17:33 Temperature Pulse Rate 120 H 116 H 116 H Respiratory Rate Blood Pressure 90/52 L 88/50 L 88/52 L Pulse Oximetry Oxygen Delivery Method Oxygen Flow Rate 05/12/24 17:46 05/12/24 17:57 05/12/24 18:22 Temperature 98.2 F Pulse Rate 119 H 118 H 115 H Respiratory Rate 20 28 H Blood Pressure 102/64 92/57 L 86/58 L Pulse Oximetry 92 92 Oxygen Delivery Method Room Air Room Air Oxygen Flow Rate 05/12/24 18:22 Temperature Pulse Rate 119 H Respiratory Rate Blood Pressure 86/58 L Pulse Oximetry Oxygen Delivery Method Oxygen Flow Rate BMI result Body Mass Index 21.5 Medications Administered Generic Name Dose Route Start Last Admin Trade Name Freq PRN Reason Stop Dose Admin Norepinephrine Bitartrate 8 mg in 250 mls @ 0 mls/hr 05/12/24 14:45 05/12/24 18:22 Levophed IVCONT 0.19 mcg/kg/min .Q0M JONNY 20.84 mls/hr Titration Protocol Per Protocol Discontinued Medications Generic Name Dose Route Start Last Admin Trade Name Freq PRN Reason Stop Dose Admin Sodium Chloride 1,755 mls @ 1,755 mls/hr 05/12/24 11:12 05/12/24 13:39 Ns 30 ml/kg infuse over 1 hr (1755 ml) 05/12/24 12:11 Infused IV Infusion .Q1H STA Piperacillin Sod/Tazobactam 50 mls @ 100 mls/hr 05/12/24 11:12 05/12/24 12:05 Sod 3.375 gm/ Sodium Chloride IV 05/12/24 11:41 Infused ONCE ONE Infusion Sodium Chloride 1,000 mls @ 999 mls/hr 05/12/24 15:26 05/12/24 16:30 Ns IV 05/12/24 16:26 Infused .Q1H1M ONE Infusion Vancomycin HCl 1,500 mg/ 500 mls @ 333.333 mls/hr 05/12/24 16:45 05/12/24 17:46 Sodium Chloride IV 05/12/24 18:14 333.33 mls/hr ONCE ONE Administration Sodium Chloride 1,000 mls @ 999 mls/hr 05/12/24 17:19 05/12/24 18:16 Ns IV 05/12/24 18:19 Infused .Q1H1M ONE Infusion Methadone HCl 195 mg 05/12/24 11:20 05/12/24 12:03 Methadone Hcl 20 Mg/2 Ml Oral.Conc PO 05/12/24 11:21 195 mg ONCE ONE Administration Ondansetron HCl 4 mg 05/12/24 12:13 05/12/24 12:15 Ondansetron Hcl 4 Mg/2 Ml Vial IVPUSH 05/12/24 12:14 4 mg ONCE ONE Administration Ondansetron HCl 4 mg 05/12/24 12:27 05/12/24 13:00 Ondansetron Hcl 4 Mg/2 Ml Vial IVPUSH 05/12/24 12:28 Not Given ONCE ONE Ondansetron HCl 4 mg 05/12/24 15:58 05/12/24 16:04 Ondansetron Hcl 4 Mg/2 Ml Vial IVPUSH 05/12/24 15:59 4 mg ONCE ONE Administration Procedures Central Line Placement Right IJ: Time Out Performed: Yes Patient Placed on Monitor/Pulse Ox: Yes MD Prep: mask and gloves Central Line Prep: Chlorhexidine scrub Local Anesthetic: lidocaine 1% Amount of anesthesia used (mL): 4 Ultrasound Used for Placement: Yes Central Line Lumen Inserted: triple Post Procedure: sutured in place, good blood return, all ports aspirated, flushed, capped and sterile dressing applied Post Procedure X-Ray: tip of catheter in good position and no pneumothorax seen Patient Tolerated Procedure: well Complications: none Medical Decision Making Lab Data 05/12/24 10:11 05/12/24 10:11 Labs: Lab Results 05/12/24 05/12/24 05/12/24 Range/Units 10:11 12:25 14:52 WBC 12.1 H (4.8-10.8) X10*3/uL RBC 4.60 (4.20-5.50) X10*6/uL Hgb 11.8 L (12.0-16.0) g/dl Hct 35.1 L (37.0-47.0) % MCV 76.3 L (80.0-98.0) fL MCH 25.7 L (27.0-33.0) pg MCHC 33.6 (31.0-35.0) g/dl RDW 16.3 H (11.0-16.0) % Plt Count 41 L D (160-400) X10*3/uL MPV Not Reportable Immature Gran % (Auto) Cancelled Neut % (Auto) Cancelled Lymph % (Auto) Cancelled [place] % (Auto) Cancelled Eos % (Auto) Cancelled Baso % (Auto) Cancelled Lymph # (Auto) Cancelled [place] # (Auto) Cancelled Eos # (Auto) Cancelled Baso # (Auto) Cancelled Abs Immat Gran (auto) Cancelled Absolute Neuts (auto) Cancelled Absolute Nucleated RBC 0.000 (0.0-0.012) X10*3/uL Nucleated RBC % (auto) 0.0 (0.0-0.2) /100WBC Neutrophils % (Manual) 90 H (45-73) % Band Neutrophils % 5 (3-5) % Lymphocytes % (Manual) 3 L (20-40) % Monocytes % (Manual) 2 (2-11) % Abs Neuts (Manual) 11.5 H (2.0-8.3) X10*3/uL Lymphocytes # (Manual) 0.4 L (1.2-4.9) X10*3/uL Monocytes # (Manual) 0.2 (0.1-1.2) X10*3/uL Toxic Vacuolation PRESENT Platelet Estimate DECREASED (NORMAL) Large Platelets PRESENT Plt Morphology Comment NOTED RBC Morphology NOTED Microcytosis 1+ (5-14) /OIF Ovalocytes 1+ (5-14) /OIF [place] Cells 1+ (0-2) /OIF Sodium 133 L (135-145) mmol/L Potassium 5.0 (3.3-5.1) mmol/L Chloride 98 (96-108) mmol/L Carbon Dioxide 14 L (22-29) mmol/L Anion Gap 26 H (12-20) BUN 69 H (9-16) mg/dL Creatinine 3.35 H (0.5-1.4) mg/dL Estim Creat Clear Calc 21.4 Estimated GFR 16 Random Glucose 116 H (60-115) mg/dL Lactic Acid 3.3 H* (0.5-2.0) mmol/L Lactic Acid F/U @ 2Hr 5.2 H* (0.5-2.0) mmol/L Lactic Acid F/U @ 4Hr (0.5-2.0) mmol/L Calcium 7.4 L D (8.4-10.2) mg/dL Total Bilirubin 0.6 (0.0-1.0) mg/dL Direct Bilirubin 0.2 (0.0-0.5) mg/dL AST 79 H (5-31) U/L ALT 14 (0-31) U/L Alkaline Phosphatase 218 H (39-117) U/L Troponin I High Sens 15.3 (<3.5-17.0) ng/L Total Protein 8.4 H (6.5-8.0) g/dL Albumin 2.2 L (3.5-5.0) g/dL Beta HCG, Quant < 2 mIU/mL Urine Color Urine Appearance Urine pH (5.0-9.0) Ur Specific [place] (1.005-1.025) Urine Protein (Neg-Trace) mg/dL Urine Glucose (UA) (Negative) mg/dL Urine Ketones (Negative) mg/dL Urine Blood (Negative) Urine Nitrite (Negative) Ur Leukocyte Esterase (Negative) Urine RBC (0-2) /HPF Urine WBC (0-5) /HPF Ur Squamous Epith Cells (0-2) /HPF Urine Bacteria (None Seen) Hyaline Casts (0-2) /LPF Urine Test (NEGATIVE) Urine Opiates Screen (Not Detect) Ur Buprenorphine Scrn (Not Detect) ng/mL Ur Oxycodone Screen (Not Detect) ng/mL Urine Methadone Screen (Not Detect) ng/mL Urine Fentanyl Screen (Not Detect) Ur Barbiturates Screen (Not Detect) Ur Phencyclidine Scrn (Not Detect) Ur Amphetamines Screen (Not Detect) U Benzodiazepines Scrn (Not Detect) Urine Cocaine Screen (Not Detect) U Marijuana (THC) Screen (Not Detect) Ethyl Alcohol 13 mg/dL 05/12/24 05/12/24 Range/Units 14:56 18:04 WBC (4.8-10.8) X10*3/uL RBC (4.20-5.50) X10*6/uL Hgb (12.0-16.0) g/dl Hct (37.0-47.0) % MCV (80.0-98.0) fL MCH (27.0-33.0) pg MCHC (31.0-35.0) g/dl RDW (11.0-16.0) % Plt Count (160-400) X10*3/uL MPV Immature Gran % (Auto) Neut % (Auto) Lymph % (Auto) [place] % (Auto) Eos % (Auto) Baso % (Auto) Lymph # (Auto) [place] # (Auto) Eos # (Auto) Baso # (Auto) Abs Immat Gran (auto) Absolute Neuts (auto) Absolute Nucleated RBC (0.0-0.012) X10*3/uL Nucleated RBC % (auto) (0.0-0.2) /100WBC Neutrophils % (Manual) (45-73) % Band Neutrophils % (3-5) % Lymphocytes % (Manual) (20-40) % Monocytes % (Manual) (2-11) % Abs Neuts (Manual) (2.0-8.3) X10*3/uL Lymphocytes # (Manual) (1.2-4.9) X10*3/uL Monocytes # (Manual) (0.1-1.2) X10*3/uL Toxic Vacuolation Platelet Estimate (NORMAL) Large Platelets Plt Morphology Comment RBC Morphology Microcytosis /OIF Ovalocytes /OIF [place] Cells /OIF Sodium (135-145) mmol/L Potassium (3.3-5.1) mmol/L Chloride (96-108) mmol/L Carbon Dioxide (22-29) mmol/L Anion Gap (12-20) BUN (9-16) mg/dL Creatinine (0.5-1.4) mg/dL Estim Creat Clear Calc Estimated GFR Random Glucose (60-115) mg/dL Lactic Acid (0.5-2.0) mmol/L Lactic Acid F/U @ 2Hr (0.5-2.0) mmol/L Lactic Acid F/U @ 4Hr 4.0 H* (0.5-2.0) mmol/L Calcium (8.4-10.2) mg/dL Total Bilirubin (0.0-1.0) mg/dL Direct Bilirubin (0.0-0.5) mg/dL AST (5-31) U/L ALT (0-31) U/L Alkaline Phosphatase (39-117) U/L Troponin I High Sens (<3.5-17.0) ng/L Total Protein (6.5-8.0) g/dL Albumin (3.5-5.0) g/dL Beta HCG, Quant mIU/mL Urine Color BROWN Urine Appearance Turbid Urine pH 5.0 (5.0-9.0) Ur Specific [place] >= 1.030 H (1.005-1.025) Urine Protein See Note (Neg-Trace) mg/dL Urine Glucose (UA) Negative (Negative) mg/dL Urine Ketones See Note (Negative) mg/dL Urine Blood Negative (Negative) Urine Nitrite See Note (Negative) Ur Leukocyte Esterase Negative (Negative) Urine RBC 0-2 (0-2) /HPF Urine WBC 6-10 (0-5) /HPF Ur Squamous Epith Cells >20 (0-2) /HPF Urine Bacteria 4+ (None Seen) Hyaline Casts >20 (0-2) /LPF Urine Test NEGATIVE (NEGATIVE) Urine Opiates Screen Not Detected (Not Detect) Ur Buprenorphine Scrn Not Detected (Not Detect) ng/mL Ur Oxycodone Screen Not Detected (Not Detect) ng/mL Urine Methadone Screen Positive H (Not Detect) ng/mL Urine Fentanyl Screen POSITIVE H (Not Detect) Ur Barbiturates Screen Not Detected (Not Detect) Ur Phencyclidine Scrn Not Detected (Not Detect) Ur Amphetamines Screen Not Detected (Not Detect) U Benzodiazepines Scrn Not Detected (Not Detect) Urine Cocaine Screen POSITIVE H (Not Detect) U Marijuana (THC) Screen Not Detected (Not Detect) Ethyl Alcohol mg/dL Discharge Plan Discharge Clinical Impression: TRICE (acute kidney injury), Pneumonia, Sepsis, Severe low back pain Patient Disposition: Still a Patient Prescriptions: No Action cephalexin 500 mg capsule 500 mg PO QID 10 Days Qty: 40 0RF doxycycline hyclate 100 mg tablet 100 mg PO BID Qty: 20 0RF methadone [Methadone Intensol] 10 mg/mL Concentrate 195 mg PO DAILY Print Language: Palauan
[2024-05-12] MEDS: fentaNYL citrate/PF 100 MCG/2 ML VIAL IVPUSH (19:19)
--- NOTE | 2024-05-12 19:36 | P.HPHOSP_ITS ---
History of Present Illness Date of Service: 05/12/24 Attending physician on admission: Toni Aquino Chief Complaint: Weakness, N/V Pt is a 33-year-old female with a PMH significant for?polysubstance use disorder with IVDU, who presents to the ED with? In the ED pt was tachycardic up to 123, tachypneic up to 31, and hypotensive Labs were significant for CXR showed CT? EKG demonstrated Pt was treated with Pt will be admitted to the hospital [facility] Social History Alcohol intake: never Use of substances other than those prescribed or required for medical reasons: Yes Substance Use Type: Heroin Substance Use Frequency: Daily Last Used Substance: Days (ago) Any prior treatment program specific to substance use: Yes Advance Directives: No Advance Directives Information Provided: No Do you have a plan to hurt others: No Plan Meds Allergies Allergy/AdvReac Type Severity Reaction Status Date / Time quetiapine [From Seroquel] AdvReac Dizziness Verified 05/12/24 10:06 Active Medications: Current Medications Lactated Ringer's (Lr) 1,000 mls @ 150 mls/hr IVCONT .[id number] JONNY Home Medications ?Medication ?Instructions ?Recorded ?Confirmed ?Last Taken ?Type methadone 10 mg/mL oral 195 mg PO DAILY 05/12/24 05/12/24 05/11/24 History concentrate (Methadone Intensol) Physical Exam 2 Vital Signs and Narrative: Vital Signs: Last Vital Signs Temp 98.2 F 05/12/24 17:57 Pulse 106 H 05/12/24 19:21 Resp 28 H 05/12/24 18:22 BP 101/55 L 05/12/24 19:21 Pulse Ox 92 05/12/24 18:22 O2 Del Method Room Air 05/12/24 18:22 O2 Flow Rate 1 05/12/24 15:50 BMI result Body Mass Index 21.5 Results Labs 05/12/24 10:11 05/12/24 10:11 Labs: Laboratory Results - last 24 hr 05/12/24 05/12/24 05/12/24 10:11 12:25 14:52 MCV 76.3 L MCH 25.7 L MCHC 33.6 RDW 16.3 H Plt Count 41 L D MPV Not Reportable Immature Gran % (Auto) Cancelled Neut % (Auto) Cancelled Lymph % (Auto) Cancelled Benson % (Auto) Cancelled Eos % (Auto) Cancelled Baso % (Auto) Cancelled Lymph # (Auto) Cancelled Benson # (Auto) Cancelled Eos # (Auto) Cancelled Baso # (Auto) Cancelled Abs Immat Gran (auto) Cancelled Absolute Neuts (auto) Cancelled Absolute Nucleated RBC 0.000 Nucleated RBC % (auto) 0.0 Neutrophils % (Manual) 90 H Band Neutrophils % 5 Lymphocytes % (Manual) 3 L Monocytes % (Manual) 2 Abs Neuts (Manual) 11.5 H Lymphocytes # (Manual) 0.4 L Monocytes # (Manual) 0.2 Toxic Vacuolation PRESENT Platelet Estimate DECREASED Large Platelets PRESENT Plt Morphology Comment NOTED RBC Morphology NOTED Microcytosis 1+ (5-14) Ovalocytes 1+ (5-14) Terese Cells 1+ (0-2) Anion Gap 26 H Estim Creat Clear Calc 21.4 Estimated GFR 16 Random Glucose 116 H Lactic Acid 3.3 H* Lactic Acid F/U @ 2Hr 5.2 H* Lactic Acid F/U @ 4Hr Calcium 7.4 L D Total Bilirubin 0.6 Direct Bilirubin 0.2 AST 79 H ALT 14 Alkaline Phosphatase 218 H Troponin I High Sens 15.3 Total Protein 8.4 H Albumin 2.2 L Beta HCG, Quant < 2 Urine Color Urine Appearance Urine pH Ur Specific Hammond Urine Protein Urine Glucose (UA) Urine Ketones Urine Blood Urine Nitrite Ur Leukocyte Esterase Urine RBC Urine WBC Ur Squamous Epith Cells Urine Bacteria Hyaline Casts Urine Test Urine Opiates Screen Ur Buprenorphine Scrn Ur Oxycodone Screen Urine Methadone Screen Urine Fentanyl Screen Ur Barbiturates Screen Ur Phencyclidine Scrn Ur Amphetamines Screen U Benzodiazepines Scrn Urine Cocaine Screen U Marijuana (THC) Screen Ethyl Alcohol 13 05/12/24 05/12/24 14:56 18:04 MCV MCH MCHC RDW Plt Count MPV Immature Gran % (Auto) Neut % (Auto) Lymph % (Auto) Benson % (Auto) Eos % (Auto) Baso % (Auto) Lymph # (Auto) Benson # (Auto) Eos # (Auto) Baso # (Auto) Abs Immat Gran (auto) Absolute Neuts (auto) Absolute Nucleated RBC Nucleated RBC % (auto) Neutrophils % (Manual) Band Neutrophils % Lymphocytes % (Manual) Monocytes % (Manual) Abs Neuts (Manual) Lymphocytes # (Manual) Monocytes # (Manual) Toxic Vacuolation Platelet Estimate Large Platelets Plt Morphology Comment RBC Morphology Microcytosis Ovalocytes Terese Cells Anion Gap Estim Creat Clear Calc Estimated GFR Random Glucose Lactic Acid Lactic Acid F/U @ 2Hr Lactic Acid F/U @ 4Hr 4.0 H* Calcium Total Bilirubin Direct Bilirubin AST ALT Alkaline Phosphatase Troponin I High Sens Total Protein Albumin Beta HCG, Quant Urine Color BROWN Urine Appearance Turbid Urine pH 5.0 Ur Specific Hammond >= 1.030 H Urine Protein See Note Urine Glucose (UA) Negative Urine Ketones See Note Urine Blood Negative Urine Nitrite See Note Ur Leukocyte Esterase Negative Urine RBC 0-2 Urine WBC 6-10 Ur Squamous Epith Cells >20 Urine Bacteria 4+ Hyaline Casts >20 Urine Test NEGATIVE Urine Opiates Screen Not Detected Ur Buprenorphine Scrn Not Detected Ur Oxycodone Screen Not Detected Urine Methadone Screen Positive H Urine Fentanyl Screen POSITIVE H Ur Barbiturates Screen Not Detected Ur Phencyclidine Scrn Not Detected Ur Amphetamines Screen Not Detected U Benzodiazepines Scrn Not Detected Urine Cocaine Screen POSITIVE H U Marijuana (THC) Screen Not Detected Ethyl Alcohol
[2024-05-12 19:57] LABS: Cancel Lactic Acid Canceled
[2024-05-12] MEDS: gadobutroL 7.5 ML VIAL IVPUSH (20:35)
[2024-05-12] MEDS: Lactated Ringers 1,000 ML 150 ML IVCONT (21:02)
[2024-05-12 21:35] LABS: Anion Gap 18 (12-20); Blood Urea Nitrogen 67 mg/dL (9-16); Calcium 6.4 mg/dL (8.4-10.2); Carbon Dioxide 14 mmol/L (22-29); Chloride 104 mmol/L (96-108); Creatinine Clr Calc Pharmacy 26.6; Estimated Glomerular Filt Rate 20; Glucose Random 111 mg/dL (60-115); Potassium 4.3 mmol/L (3.3-5.1); Sodium 132 mmol/L (135-145)
[2024-05-12] MEDS: Norepinephrine Bitartrate/D5W 8 MG/250 ML PLAST..BAG 43.88 MG IVCONT (21:56)
[2024-05-12] MEDS: Morphine Sulfate Immed Release 15 MG TABLET PO (22:18)
[2024-05-12 22:36] LABS: VBG Base Excess -8.1 mmol/L; VBG HCO3 17 mmol/L (22-26); VBG pCO2 35 mmHg; VBG pH 7.29 (7.32-7.43); VBG pO2 36 mmHg
[2024-05-12 22:37] LABS: Venous Blood Gas Refer to POC result
[2024-05-13] VITALS (39 sets, daily range): BP systolic 94–131; BP diastolic 59–80; PULSE 85–104; RESP 13–25; TEMP 36.3–37.1; O2SAT 90–100; BMI 21.5
[2024-05-13] MEDS: Lactated Ringers 1,000 ML 150 ML IVCONT ×2 (00:51→07:34)
[2024-05-13] MEDS: Piperacillin Sodium/Tazobactam 4.5 GM in 0.9 % Sodium Chloride 100 ML IV (00:51)
[2024-05-13] MEDS: HYDROmorphone HCl 1 MG/ML SYRINGE IVPUSH ×2 (01:42→04:50)
--- NOTE | 2024-05-13 02:11 | PM.CCHP ---
History of Present Illness Date of Service: 05/12/24 Attending physician on admission: Bette Paris Chief Complaint: Generalized weakness The patient is a 33-year-old female with a past medical history of IV drug abuse on methadone who presented to the emergency department for evaluation of weakness.? Patient also reported subjective fevers and chills, and diffuse abdominal pain with no nausea no vomiting. She also reported back pain.? ?On arrival to the emergency department, ? patient tachycardic to the 120s,? blood pressure systolic of 90s,? but later dropped with map of 60s.? ?Laboratory data was significant for,? WBC of 12.1, platelet 41, lactic 3.3, BUN 67, creatinine 2.70. Venous gas 7.29/35/36/17 ??U tox positive for? methadone, fentanyl, and cocaine ?Blood cultures from 10:00 positive for? GPC IMAGING: ?Abdomen CT:? with possible enteritis ?Lumbar spine MRI:? no evidence of abscess/osteomyelitis ?Chest x-ray:? no infectious process noted Review of Systems Review of Systems: As per HPI Yes all other systems are reviewed and are negative PMFSH Past Medical History Medical History IV drug user Social History Social History Household Members: Family Housing Other:: pt states stays with sister Do you presently have visiting nurse or other home services: No Alcohol intake: never Patient Tobacco Use Status: Tobacco use Unknown Use of substances other than those prescribed or required for medical reasons: Yes Substance Use Type: Crack/Cocaine, Heroin, IV Drugs and Opiates Substance Use Frequency: Daily Last Used Substance: Days (ago) Currently Displaying Signs/Symptoms of Drug Intoxication Withdrawal: No Any prior treatment program specific to substance use: No Have you been hit, kicked, punched, or otherwise hurt by someone within the past year? If so, by whom?: No Advance Directives: No Advance Directives Information Provided: No Do you have a plan to hurt others: No Plan Recently lost weight without trying: Unsure Nutrition Risks: Poor intake 0-25% >4 days Patient : Yes Meds Allergies Allergy/AdvReac Type Severity Reaction Status Date / Time quetiapine [From Seroquel] AdvReac Dizziness Verified 05/12/24 10:06 Active Medications: Current Medications Lactated Ringer's (Lr) 1,000 mls @ 150 mls/hr IVCONT .Q6H40M ON LICENSE OF [facility] Last Admin: 05/13/24 00:51 Dose: 150 mls/hr Norepinephrine Bitartrate (Levophed) 8 mg in 250 mls @ 0 mls/hr IVCONT .Q0M ON LICENSE OF [facility]; Protocol Last Titration: 05/13/24 01:23 Dose: 0.23 mcg/kg/min, 25.23 mls/hr Vancomycin HCl 1,250 mg/ (Sodium Chloride) 250 mls @ 166.667 mls/hr IV Q12H ON LICENSE OF [facility] Albumin Human (Kedbumin 25 %) 100 mls @ 100 mls/hr IV Q6H ON LICENSE OF [facility] Stop: 05/13/24 21:14 Methadone HCl (Methadone Hcl 20 Mg/2 Ml Oral.Conc) 195 mg PO DAILY@0800 ON LICENSE OF [facility] Pharmacy Consult (Consult Rx Vancomycin Dosing) 1 each MISCELLANE DAILY PRN PRN Reason: Consult order Sodium Chloride (0.9 % Sodium Chloride Flush 3 Ml Syringe) [facility] Medications ?Medication ?Instructions ?Recorded ?Confirmed ?Last Taken ?Type methadone 10 mg/mL oral 195 mg PO DAILY 05/12/24 05/12/24 05/11/24 History concentrate (Methadone Intensol) Physical Exam Vital Signs: Vital Signs: Last Vital Signs Temp 98.7 F 05/13/24 00:03 Pulse 97 05/13/24 02:00 Resp 15 05/13/24 02:00 BP 108/69 05/13/24 02:00 Pulse Ox 93 05/13/24 02:00 O2 Del Method Room Air 05/13/24 02:00 O2 Flow Rate 1 05/12/24 15:50 BMI result Body Mass Index 21.5 SEPSIS FOCUS EXAM PERFORMED AT 2330 on 05/12/2024 ?General:? Unkempt, Alert oriented x3 no acute distress.? Speaking full sentences.?Following all commands. ?HEENT:? Head is normocephalic, atraumatic, pupils equal round reactive to light accommodation bilaterally.? Extraocular movements appear intact.? Buccal mucosa is dry, Neck is supple ?Cardiac:? Clear S1-S2, no murmurs rubs or gallops. ?Pulmonary:? Clear to auscultation, no wheezes, rales or rhonchi. ?Abdomen:? ?Abdomen soft, non-distended. Diffuse tenderness, Normal bowel sounds. No pulsatile mass. No hepatosplenomegaly. ?Musculoskeletal:? Moving all 4 extremities upon request a major joints, there is no crepitus or tenderness.? The strength is 5/5 bilaterally and throughout all 4 extremities.? Gait not assessed at this point. ?Neurologic:?No focal deficits noted.Motor strength as above.?? ?Skin: BLE are lower extremities with redness in the feet. Left upper extremity, with scabs area. Multiple track hernandez in all extremities? Intact, no lesions, edema, erythema, clubbing or cyanosis.? No ulcers. Vascular:? 2+ pulses upper and lower extremities distally.? Results Labs 05/13/24 05:24 05/13/24 05:24 Labs: Laboratory Results - last 24 hr 05/12/24 05/12/24 05/12/24 10:11 12:25 14:52 MCV 76.3 L MCH 25.7 L MCHC 33.6 RDW 16.3 H Plt Count 41 L D MPV Not Reportable Immature Gran % (Auto) Cancelled Neut % (Auto) Cancelled Lymph % (Auto) Cancelled [place] % (Auto) Cancelled Eos % (Auto) Cancelled Baso % (Auto) Cancelled Lymph # (Auto) Cancelled [place] # (Auto) Cancelled Eos # (Auto) Cancelled Baso # (Auto) Cancelled Abs Immat Gran (auto) Cancelled Absolute Neuts (auto) Cancelled Absolute Nucleated RBC 0.000 Nucleated RBC % (auto) 0.0 Neutrophils % (Manual) 90 H Band Neutrophils % 5 Lymphocytes % (Manual) 3 L Monocytes % (Manual) 2 Abs Neuts (Manual) 11.5 H Lymphocytes # (Manual) 0.4 L Monocytes # (Manual) 0.2 Toxic Vacuolation PRESENT Platelet Estimate DECREASED Large Platelets PRESENT Plt Morphology Comment NOTED RBC Morphology NOTED Microcytosis 1+ (5-14) Ovalocytes 1+ (5-14) Terese Cells 1+ (0-2) VBG pH VBG pCO2 VBG pO2 VBG HCO3 VBG O2 Saturation VBG Base Excess Anion Gap 26 H Estim Creat Clear Calc 21.4 Estimated GFR 16 Random Glucose 116 H Lactic Acid 3.3 H* Lactic Acid F/U @ 2Hr 5.2 H* Lactic Acid F/U @ 4Hr Calcium 7.4 L D Total Bilirubin 0.6 Direct Bilirubin 0.2 AST 79 H ALT 14 Alkaline Phosphatase 218 H Total Creatine Kinase Troponin I High Sens 15.3 Total Protein 8.4 H Albumin 2.2 L Beta HCG, Quant < 2 Urine Color Urine Appearance Urine pH Ur Specific [place] Urine Protein Urine Glucose (UA) Urine Ketones Urine Blood Urine Nitrite Ur Leukocyte Esterase Urine RBC Urine WBC Ur Squamous Epith Cells Urine Bacteria Hyaline Casts Urine Test Urine Opiates Screen Ur Buprenorphine Scrn Ur Oxycodone Screen Urine Methadone Screen Urine Fentanyl Screen Ur Barbiturates Screen Ur Phencyclidine Scrn Ur Amphetamines Screen U Benzodiazepines Scrn Urine Cocaine Screen U Marijuana (THC) Screen Ethyl Alcohol 13 05/12/24 05/12/24 05/12/24 14:56 18:04 21:10 MCV MCH MCHC RDW Plt Count MPV Immature Gran % (Auto) Neut % (Auto) Lymph % (Auto) [place] % (Auto) Eos % (Auto) Baso % (Auto) Lymph # (Auto) [place] # (Auto) Eos # (Auto) Baso # (Auto) Abs Immat Gran (auto) Absolute Neuts (auto) Absolute Nucleated RBC Nucleated RBC % (auto) Neutrophils % (Manual) Band Neutrophils % Lymphocytes % (Manual) Monocytes % (Manual) Abs Neuts (Manual) Lymphocytes # (Manual) Monocytes # (Manual) Toxic Vacuolation Platelet Estimate Large Platelets Plt Morphology Comment RBC Morphology Microcytosis Ovalocytes Terese Cells VBG pH VBG pCO2 VBG pO2 VBG HCO3 VBG O2 Saturation VBG Base Excess Anion Gap 18 Estim Creat Clear Calc Estimated GFR Random Glucose Lactic Acid Lactic Acid F/U @ 2Hr Lactic Acid F/U @ 4Hr 4.0 H* Calcium Total Bilirubin Direct Bilirubin AST ALT Alkaline Phosphatase Total Creatine Kinase Troponin I High Sens Total Protein Albumin Beta HCG, Quant Urine Color BROWN Urine Appearance Turbid Urine pH 5.0 Ur Specific [place] >= 1.030 H Urine Protein See Note Urine Glucose (UA) Negative Urine Ketones See Note Urine Blood Negative Urine Nitrite See Note Ur Leukocyte Esterase Negative Urine RBC 0-2 Urine WBC 6-10 Ur Squamous Epith Cells >20 Urine Bacteria 4+ Hyaline Casts >20 Urine Test NEGATIVE Urine Opiates Screen Not Detected Ur Buprenorphine Scrn Not Detected Ur Oxycodone Screen Not Detected Urine Methadone Screen Positive H Urine Fentanyl Screen POSITIVE H Ur Barbiturates Screen Not Detected Ur Phencyclidine Scrn Not Detected Ur Amphetamines Screen Not Detected U Benzodiazepines Scrn Not Detected Urine Cocaine Screen POSITIVE H U Marijuana (THC) Screen Not Detected Ethyl Alcohol 05/12/24 05/12/24 05/12/24 21:10 21:10 21:10 MCV MCH MCHC RDW Plt Count MPV Immature Gran % (Auto) Neut % (Auto) Lymph % (Auto) [place] % (Auto) Eos % (Auto) Baso % (Auto) Lymph # (Auto) [place] # (Auto) Eos # (Auto) Baso # (Auto) Abs Immat Gran (auto) Absolute Neuts (auto) Absolute Nucleated RBC Nucleated RBC % (auto) Neutrophils % (Manual) Band Neutrophils % Lymphocytes % (Manual) Monocytes % (Manual) Abs Neuts (Manual) Lymphocytes # (Manual) Monocytes # (Manual) Toxic Vacuolation Platelet Estimate Large Platelets Plt Morphology Comment RBC Morphology Microcytosis Ovalocytes White Cells VBG pH VBG pCO2 VBG pO2 VBG HCO3 VBG O2 Saturation VBG Base Excess Anion Gap Cancelled Estim Creat Clear Calc 26.6 Cancelled Estimated GFR 20 Cancelled Random Glucose 111 Lactic Acid Lactic Acid F/U @ 2Hr Lactic Acid F/U @ 4Hr Calcium Total Bilirubin Direct Bilirubin AST ALT Alkaline Phosphatase Total Creatine Kinase Troponin I High Sens Total Protein Albumin Beta HCG, Quant Urine Color Urine Appearance Urine pH Ur Specific [place] Urine Protein Urine Glucose (UA) Urine Ketones Urine Blood Urine Nitrite Ur Leukocyte Esterase Urine RBC Urine WBC Ur Squamous Epith Cells Urine Bacteria Hyaline Casts Urine Test Urine Opiates Screen Ur Buprenorphine Scrn Ur Oxycodone Screen Urine Methadone Screen Urine Fentanyl Screen Ur Barbiturates Screen Ur Phencyclidine Scrn Ur Amphetamines Screen U Benzodiazepines Scrn Urine Cocaine Screen U Marijuana (THC) Screen Ethyl Alcohol 05/12/24 05/12/24 05/12/24 21:10 21:10 22:31 MCV MCH MCHC RDW Plt Count MPV Immature Gran % (Auto) Neut % (Auto) Lymph % (Auto) [place] % (Auto) Eos % (Auto) Baso % (Auto) Lymph # (Auto) [place] # (Auto) Eos # (Auto) Baso # (Auto) Abs Immat Gran (auto) Absolute Neuts (auto) Absolute Nucleated RBC Nucleated RBC % (auto) Neutrophils % (Manual) Band Neutrophils % Lymphocytes % (Manual) Monocytes % (Manual) Abs Neuts (Manual) Lymphocytes # (Manual) Monocytes # (Manual) Toxic Vacuolation Platelet Estimate Large Platelets Plt Morphology Comment RBC Morphology Microcytosis Ovalocytes Terese Cells VBG pH 7.29 L VBG pCO2 35 VBG pO2 36 VBG HCO3 17 L VBG O2 Saturation 58.0 VBG Base Excess -8.1 Anion Gap Estim Creat Clear Calc Estimated GFR Random Glucose Cancelled Lactic Acid Lactic Acid F/U @ 2Hr Lactic Acid F/U @ 4Hr Calcium 6.4 L D Cancelled Total Bilirubin Direct Bilirubin AST ALT Alkaline Phosphatase Total Creatine Kinase 11 L Troponin I High Sens Total Protein Albumin Beta HCG, Quant Urine Color Urine Appearance Urine pH Ur Specific [place] Urine Protein Urine Glucose (UA) Urine Ketones Urine Blood Urine Nitrite Ur Leukocyte Esterase Urine RBC Urine WBC Ur Squamous Epith Cells Urine Bacteria Hyaline Casts Urine Test Urine Opiates Screen Ur Buprenorphine Scrn Ur Oxycodone Screen Urine Methadone Screen Urine Fentanyl Screen Ur Barbiturates Screen Ur Phencyclidine Scrn Ur Amphetamines Screen U Benzodiazepines Scrn Urine Cocaine Screen U Marijuana (THC) Screen Ethyl Alcohol Assessment and Plan (1) Septic shock: Status: Acute (2) Cellulitis: Status: Acute (3) Severe low back pain: Status: Acute (4) TRICE (acute kidney injury): Status: Acute (5) IV drug user: Status: Acute Plan ?33-year-old with a past medical history IV drug use on methadone admitted to ICU for management of septic shock from Gram-positive bacteremia Plan: Neuro:? ?No acute issues Cardiac:?? ?Septic shock- from Gram-positive bacteremia,? patient has a history of IV drug use,? patient reported back pain, but? lumbar spine CT negative for? abscess.? Upper extremity and lower extremity with redness,? concerning for cellulitis.? Could be source.? But will also obtain an echo to rule out possible endocarditis.? She received vancomycin and Zosyn in the emergency department.? We will continue vancomycin as blood cultures positive for GPC. Patient on Levophed,? will wean off as appropriate Pulmonary: ?No acute issues? Renal ?TRICE-? nonoliguric,? related to hypoperfusion. ? Received? 30 mL/kg in the emergency department. Cont LR at 150ml/hr? Continue to check renal induces and urine output Endo:?? ?No acute issues GI:?? ?No acute issues ID: ?Septic shock- Gram-positive bacteremia,? patient has a history of IV drug use,? patient reported back pain, but? lumbar spine CT negative for? abscess.? Upper extremity and lower extremity with redness,? concerning for cellulitis.? Could be source.? But will also obtain an echo to rule out possible endocarditis.? She received vancomycin and Zosyn in the emergency department.? We will continue vancomycin as blood cultures positive for GPC. ? Final blood cultures are pending.? Heme/Onc:?? ?Thrombocytopenia:? no evidence of bleeding,? likely from septic shock.? Continue to monitor.? Psych:? IV drug use:? on methadone,? dose confirmed by ED? staff.? Continue methadone Miscellaneous:? ? no acute issues Prophylaxis: ? compression boots,? add subacute heparin when platelet levels? appropriate ? CODE: ? Full code? Critical care time: X 60 minutes of critical care time?
[2024-05-13] MEDS: Albumin Human 25 % 100 ML IV ×4 (02:55→19:35)
[2024-05-13] MEDS: Acetaminophen 325 MG TABLET 650 MG PO ×2 (03:58→11:52)
[2024-05-13 05:43] LABS: VBG Base Excess -5.4 mmol/L; VBG HCO3 19 mmol/L (22-26); VBG pCO2 35 mmHg; VBG pH 7.34 (7.32-7.43); VBG pO2 33 mmHg
[2024-05-13 06:03] LABS: Venous Blood Gas Refer to POC result
[2024-05-13 06:09] LABS: Hematocrit 24.3 % (37.0-47.0); PLT CLUMP 1; WBC ABN SCTR FOR CBC 1
[2024-05-13 06:10] LABS: Hemoglobin 8.3 g/dl (12.0-16.0); Mean Corpuscular HGB Conc 34.2 g/dl (31.0-35.0); Mean Corpuscular Hemoglobin 25.9 pg (27.0-33.0); Mean Corpuscular Volume 75.9 fL (80.0-98.0); Red Cell Distribution Width 16.5 % (11.0-16.0)
[2024-05-13 06:12] LABS: Platelet Count 38 X10*3/uL (160-400); White Blood Count 13.1 X10*3/uL (4.8-10.8)
[2024-05-13 06:31] LABS: Atypical Lymph Absolute Manual 0.1 x10*3/uL; Atypical Lymphs Percent Manual 1 % (0-6); Band Neutrophils Percent 4 % (3-5); Lymphocytes Absolute Manual 1.2 X10*3/uL (1.2-4.9); Lymphocytes Percent Manual 9 % (20-40); Monocytes Absolute Manual 0.3 X10*3/uL (0.1-1.2); Monocytes Percent Manual 2 % (2-11); Neutrophils Absolute Manual 11.5 X10*3/uL (2.0-8.3); Neutrophils Percent Manual 84 % (45-73)
[2024-05-13 06:33] LABS: Acanthocytes 1+ (0-2) /OIF; Hypochromasia 1+ (5-14) /OIF; Large Platelet PRESENT; Microcytosis 2+ (15-30) /OIF; Platelet Estimate DECREASED (NORMAL); Platelet Morphology Comment NOTED; RBC Morphology NOTED
[2024-05-13 06:56] LABS: Alanine Aminotransferase 9 U/L (0-31); Albumin Level 2.2 g/dL (3.5-5.0); Alkaline Phosphatase 130 U/L (39-117); Anion Gap 17 (12-20); Aspartate Amino Transferase 35 U/L (5-31); Bilirubin Total 0.6 mg/dL (0.0-1.0); Blood Urea Nitrogen 69 mg/dL (9-16); Calcium 6.8 mg/dL (8.4-10.2); Carbon Dioxide 18 mmol/L (22-29); Chloride 103 mmol/L (96-108); Creatinine Clr Calc Pharmacy 27.5; Estimated Glomerular Filt Rate 21; Glucose Random 86 mg/dL (60-115); Magnesium 2.1 mg/dL (1.6-2.6); Phosphorus 6.7 mg/dL (2.7-4.5); Sodium 134 mmol/L (135-145); Total Protein 6.2 g/dL (6.5-8.0)
--- NOTE | 2024-05-13 07:00 | CA_ITS ---
Transthoracic Echocardiogram Patient (Last, First, Middle): Roxann Quinteros, Gender: Female Date of : 1990 Age: 33 Procedure Date: 05/13/2024 Procedure Type: Transthoracic Echocardiogram Location: ICU Height: 165.1 cm Weight: 58.06 kg BSA: 1.64 m2 Heart Rate: bpm BP: 107 / 71 mmHg Campus Recruiting Coordinator: ADAM Referring MD: Ravi Moeller NP Mobile Home Servicer: Mike Lara MD Symptoms: GPC bacteremia Study Quality: Fair ECG Rhythm: Sinus Conclusions: - 1. Large vegetation of the anterior leaflet of the tricuspid valve with flail anterior leaflet with wide open tricuspid regurgitation 2. Dilated right-sided chambers with preserved RV contractility 3. Normal LV ejection fraction of 60 65% 4. No gross pericardial effusion Findings Left Ventricle Normal left ventricular size, thickness, and systolic function. The visually estimated ejection fraction is between 60-65%. There is a flattened septum in diastole ( D shaped left ventricle) consistent with right ventricular volume overload. Spectral Doppler is indicative of a normal filling pattern. Right Ventricle Moderately increased right ventricular cavity size. There is normal right ventricular systolic function. Atria The left atrium is normal in size. There is no evidence of interatrial shunt. The right atrium is mildly dilated. Aortic Valve Normal aortic valve structure and function. There is no aortic valve stenosis. There is no aortic valve regurgitation. Mitral Valve Normal mitral valve structure and function. There is no mitral valve regurgitation. There is no mitral valve stenosis. Pulmonic Valve The pulmonic valve was not well visualized. Tricuspid Valve There is a flail anterior mitral leaflet. There is severe tricuspid valve regurgitation. The tricuspid regurgitation jet is eccentric directed toward the interatrial septum. There is a large mobile mass on the anterior tricuspid valve leaflet. The anterior leaflet mass measures 2.50 cm x 1.40 cm. The mass is consistent with vegetation. Great Vessels All visible segments of the aorta are normal in size. Venous The inferior vena cava is normal in size and collapses greater than 50% with inspiration. Pericardium/Pleural There is no evidence of pericardial effusion. Prior Study Comparison No prior study available for comparison. findings discussed with Measurements 2D Linear Measurements IVSd: 0.66 0.6-0.9/0.6-1.0 cm LVIDd: 3.92 3.9-5.3/4.2-5.9 cm LVIDd Index: 2.39 2.4-3.2/2.2-3.1 cm/m2 LVIDs: 2.61 2.0-3.6 cm LVPWd: 1.06 0.7-1.1 cm Ao Root: 2.70 2.1-3.5 cm LA Diam: 3.00 2.7-3.8/3.0-4.0 cm LAIDs Index: 1.83 1.5-2.3 cm/m2 LV Mass: 123.54 67-162/88-224 g LV Mass Index: 75.33 43-95/49-115 g/m2 LVOT Diam: 1.90 3.0+(-)1.3 cm 2D Systolic Function EF 4C: 50.50 >55% Mitral Valve MV Pk E: 0.66 MV PK A: 0.50 MV Decel Time: 165.00 E/A: 1.30 E'Lateral: 11.00 E'Medial: 12.30 E/E' Med: 5.40 E/E' Lat: 6.00 PHT: 48.00 MVA PHT: 4.58 Decel Cuming: 4.02 Aortic Valve AoV Pk Byron: 1.17 AoV Pk Grad: 5.00 LVOT LVOT Pk Byron: 1.21 LVOT Mn Byron: 0.84 LVOT VTI: 0.18 LVOT Pk Grad: 6.00 LVOT Mn Grad: 3.00 LVOT Diam: 1.90 LVOT Area: 2.84 Diastolic Function MV Pk E: 0.66 MV Pk A: 0.50 E/A: 1.30 E'Medial: 12.30 E/E' Med: 5.40 E' Laterial: 11.00 E/E' Lat: 6.00 Tricuspid Valve TR Pk Byron: 2.30 TR Pk Grad: 21.00 RA Press: 8.00 RVSP: 29.00 Great Vessels Aorta Ao Root-2D: 2.70 2.0-3.7 cm Ao Asc: 2.50 2.1-3.4 cm Pulmonary Veins Pulm Vein S/D 1.60 Pulmonary Valve PV Pk Byron: 0.81 Peak PV Grad: 3.00 Updated in Other Vendor System with Status of Final Mike Lara MD electronically signed on 05/13/2024 3:11:00 PM with status of Final
[2024-05-13] MEDS: methADONE HCl 20 MG/2 ML ORAL.CONC 195 MG PO (07:31)
[2024-05-13] MEDS: Calcium Gluconate/NaCl,Iso-Osm 1 GM/50 ML PLAST..BAG IV (07:32)
[2024-05-13] MEDS: Norepinephrine Bitartrate/D5W 8 MG/250 ML PLAST..BAG 14.26 MG IVCONT (07:32)
[2024-05-13] MEDS: 0.9 % Sodium Chloride Flush 3 ML SYRINGE IVFLUSH ×3 (07:34→19:31)
--- NOTE | 2024-05-13 08:00 | PHA.PROG ---
Admission Date/Time: May 13, 2024 00:08 Indication: sepsis Weight in k.5 kg Adjusted body weight in Kg: [place] body weight in Kg: Obesity Dosing Indication % IBW: BMI 21.5 Serum Creatinine - Last 168 Hours 05/12/24 05/12/24 05/12/24 10:11 21:10 21:10 Creatinine 3.35 H 2.70 H Cancelled 05/13/24 05:24 Creatinine 2.61 H Estimated CrCl and GFR - Last 168 Hours 05/12/24 05/12/24 05/12/24 10:11 21:10 21:10 Estim Creat Clear Calc 21.4 26.6 Cancelled Estimated GFR 16 20 05/12/24 05/13/24 21:10 05:24 Estim Creat Clear Calc 27.5 Estimated GFR Cancelled 21 Vancomycin Loading Dose: 1500mg X1 Current Vancomycin Dosing Regimen: 750 Q24H Vancomycin Monitoring using AUC goal of 400 - 600 range with trough as surrogate marker: 516 Date and Time for next Vancomycin Level to be drawn: 05/14 @1700 Pharmacist Comments on Vancomycin Plan: Pt's SCr is elevated but slowly decreasing. Starting off with 750 Q24H as renal function is poor, and predicted trough is 17.1. To be adjusted tomorrow if trough comes back too elevated or patient's renal function worsens. Vancomycin dosing will take advantage of [employer] as a clinical decision support tool that uses Bayesian modeling to calculate individual patient's pharmacokinetic parameters and forecast the patient's drug concentration time course with the target goal AUC 24 range of 400 - 600 mg/L/hr.
[2024-05-13] MEDS: cefTRIAXone sodium 2 GM VIAL IVPUSH (11:35)
--- NOTE | 2024-05-13 14:02 | MHC.CM.PN ---
Pt sleeping during CM attempts to complete assessment and assist w/d/c planning needs: will reapproach: pt should be seen by CARE team when medically stable for polysubstance use. CM to follow
--- NOTE | 2024-05-13 15:25 | PM.DS ---
DS: Providers Provider Date of Service: 05/13/24 Date of admission: 05/13/24 00:08 Date of discharge: 05/13/24 Primary care physician: None Physician Consults: 05/13/24 14:42 Consult to Cardiology Routine Consulting Provider: [facility] [place] [facility] Reason for consultation: Endocarditis with vegetation Has provider been notified: No DS: Transfer Hospital Acceptance Reason for Transfer: Tricuspid endocarditis further evaluation Name of Facility: [facility] Accepting Provider: Dr. 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 Patient started on empiric antibiotics. She also complains of back pain, CT spine was negative for abscess. Patient also developed what appears to be bilateral feet digital ischemia, despite having good bilateral pedal pulses. Her blood cultures grew group A Streptococcus. Her 2D echocardiogram showed large tricuspid vegetation. Patient required pressor support with improving pressor requirements over the course of the day. She also was not to have acute kidney injury, but no evidence of oliguria. Evaluation at [facility] for possible tricuspid replacement was requested and patient was accepted to [facility] CCU. Time Attestation Total time managing care of this patient today: 45 mintues. Discharge Coordination Time (in mins): 30 Quality: Safe Use of Opioids Does Pt have an Active Cancer Diagnosis on the Problem List?: No Quality: Stroke Does the patient have a stroke diagnosis?: No Physical Exam Vital Signs: Vital Signs: Last Vital Signs Temp 97.4 F 05/13/24 08:00 Pulse 93 05/13/24 15:00 Resp 20 05/13/24 15:00 BP 121/62 05/13/24 15:00 Pulse Ox 93 05/13/24 14:00 O2 Del Method Room Air 05/13/24 14:00 O2 Flow Rate 1 05/12/24 15:50 BMI result Body Mass Index 21.5 Const: General: no acute distress, alert and awake Eyes: Sclerae: sclerae normal EOM: EOMs intact bilaterally Neck: Neck: Yes no lymphadenopathy, Yes trachea midline and Yes supple Resp: Effort & Inspection: normal respiratory effort and no respiratory distress Auscultation: clear to auscultation bilaterally Cardio: Rate: regular rate Rhythm: regular rhythm Heart sounds: no gallops, no murmurs and no rubs GI: Palpation (GI): Soft to palpation and Other GI palpation findings present ( Nontender) Auscultation: normal bowel sounds Extrem: General: No clubbing, No cyanosis and Yes other (Digits of bilateral feet purple and tender) DS: Data Data Completed and Pending Labs on day of discharge: Laboratory Results - last 24 hr 05/12/24 05/12/24 05/12/24 14:52 14:56 18:04 WBC RBC Hgb Hct MCV MCH MCHC RDW Plt Count MPV Immature Gran % (Auto) Neut % (Auto) Lymph % (Auto) Cross % (Auto) Eos % (Auto) Baso % (Auto) Lymph # (Auto) Cross # (Auto) Eos # (Auto) Baso # (Auto) Abs Immat Gran (auto) Absolute Neuts (auto) Absolute Nucleated RBC Nucleated RBC % (auto) Neutrophils % (Manual) Band Neutrophils % Lymphocytes % (Manual) Atypical Lymphs % (Man) Monocytes % (Manual) Abs Neuts (Manual) Lymphocytes # (Manual) Atyp Lymphs # (Manual) Monocytes # (Manual) Platelet Estimate Large Platelets Plt Morphology Comment RBC Morphology Hypochromasia Microcytosis Acanthocytes (Spur) VBG pH VBG pCO2 VBG pO2 VBG HCO3 VBG O2 Saturation VBG Base Excess Sodium Potassium Chloride Carbon Dioxide Anion Gap BUN Creatinine Estim Creat Clear Calc Estimated GFR Random Glucose Lactic Acid F/U @ 2Hr 5.2 H* Lactic Acid F/U @ 4Hr 4.0 H* Calcium Phosphorus Magnesium Total Bilirubin AST ALT Alkaline Phosphatase Total Creatine Kinase Total Protein Albumin Urine Color BROWN Urine Appearance Turbid Urine pH 5.0 Ur Specific [place] >= 1.030 H Urine Protein See Note Urine Glucose (UA) Negative Urine Ketones See Note Urine Blood Negative Urine Nitrite See Note Ur Leukocyte Esterase Negative Urine RBC 0-2 Urine WBC 6-10 Ur Squamous Epith Cells >20 Urine Bacteria 4+ Hyaline Casts >20 05/12/24 05/12/24 05/12/24 21:10 21:10 21:10 WBC RBC Hgb Hct MCV MCH MCHC RDW Plt Count MPV Immature Gran % (Auto) Neut % (Auto) Lymph % (Auto) Cross % (Auto) Eos % (Auto) Baso % (Auto) Lymph # (Auto) Cross # (Auto) Eos # (Auto) Baso # (Auto) Abs Immat Gran (auto) Absolute Neuts (auto) Absolute Nucleated RBC Nucleated RBC % (auto) Neutrophils % (Manual) Band Neutrophils % Lymphocytes % (Manual) Atypical Lymphs % (Man) Monocytes % (Manual) Abs Neuts (Manual) Lymphocytes # (Manual) Atyp Lymphs # (Manual) Monocytes # (Manual) Platelet Estimate Large Platelets Plt Morphology Comment RBC Morphology Hypochromasia Microcytosis Acanthocytes (Spur) VBG pH VBG pCO2 VBG pO2 VBG HCO3 VBG O2 Saturation VBG Base Excess Sodium 132 L Cancelled Potassium 4.3 Cancelled Chloride 104 Carbon Dioxide Anion Gap BUN Creatinine Estim Creat Clear Calc Estimated GFR Random Glucose Lactic Acid F/U @ 2Hr Lactic Acid F/U @ 4Hr Calcium Phosphorus Magnesium Total Bilirubin AST ALT Alkaline Phosphatase Total Creatine Kinase Total Protein Albumin Urine Color Urine Appearance Urine pH Ur Specific [place] Urine Protein Urine Glucose (UA) Urine Ketones Urine Blood Urine Nitrite Ur Leukocyte Esterase Urine RBC Urine WBC Ur Squamous Epith Cells Urine Bacteria Hyaline Casts 05/12/24 05/12/24 05/12/24 21:10 21:10 21:10 WBC RBC Hgb Hct MCV MCH MCHC RDW Plt Count MPV Immature Gran % (Auto) Neut % (Auto) Lymph % (Auto) Cross % (Auto) Eos % (Auto) Baso % (Auto) Lymph # (Auto) Cross # (Auto) Eos # (Auto) Baso # (Auto) Abs Immat Gran (auto) Absolute Neuts (auto) Absolute Nucleated RBC Nucleated RBC % (auto) Neutrophils % (Manual) Band Neutrophils % Lymphocytes % (Manual) Atypical Lymphs % (Man) Monocytes % (Manual) Abs Neuts (Manual) Lymphocytes # (Manual) Atyp Lymphs # (Manual) Monocytes # (Manual) Platelet Estimate Large Platelets Plt Morphology Comment RBC Morphology Hypochromasia Microcytosis Acanthocytes (Spur) VBG pH VBG pCO2 VBG pO2 VBG HCO3 VBG O2 Saturation VBG Base Excess Sodium Potassium Chloride Cancelled Carbon Dioxide 14 L Cancelled Anion Gap 18 Cancelled BUN 67 H Creatinine Estim Creat Clear Calc Estimated GFR Random Glucose Lactic Acid F/U @ 2Hr Lactic Acid F/U @ 4Hr Calcium Phosphorus Magnesium Total Bilirubin AST ALT Alkaline Phosphatase Total Creatine Kinase Total Protein Albumin Urine Color Urine Appearance Urine pH Ur Specific [place] Urine Protein Urine Glucose (UA) Urine Ketones Urine Blood Urine Nitrite Ur Leukocyte Esterase Urine RBC Urine WBC Ur Squamous Epith Cells Urine Bacteria Hyaline Casts 05/12/24 05/12/24 05/12/24 21:10 21:10 21:10 WBC RBC Hgb Hct MCV MCH MCHC RDW Plt Count MPV Immature Gran % (Auto) Neut % (Auto) Lymph % (Auto) Cross % (Auto) Eos % (Auto) Baso % (Auto) Lymph # (Auto) Cross # (Auto) Eos # (Auto) Baso # (Auto) Abs Immat Gran (auto) Absolute Neuts (auto) Absolute Nucleated RBC Nucleated RBC % (auto) Neutrophils % (Manual) Band Neutrophils % Lymphocytes % (Manual) Atypical Lymphs % (Man) Monocytes % (Manual) Abs Neuts (Manual) Lymphocytes # (Manual) Atyp Lymphs # (Manual) Monocytes # (Manual) Platelet Estimate Large Platelets Plt Morphology Comment RBC Morphology Hypochromasia Microcytosis Acanthocytes (Spur) VBG pH VBG pCO2 VBG pO2 VBG HCO3 VBG O2 Saturation VBG Base Excess Sodium Potassium Chloride Carbon Dioxide Anion Gap BUN Cancelled Creatinine 2.70 H Cancelled Estim Creat Clear Calc 26.6 Cancelled Estimated GFR 20 Random Glucose Lactic Acid F/U @ 2Hr Lactic Acid F/U @ 4Hr Calcium Phosphorus Magnesium Total Bilirubin AST ALT Alkaline Phosphatase Total Creatine Kinase Total Protein Albumin Urine Color Urine Appearance Urine pH Ur Specific [place] Urine Protein Urine Glucose (UA) Urine Ketones Urine Blood Urine Nitrite Ur Leukocyte Esterase Urine RBC Urine WBC Ur Squamous Epith Cells Urine Bacteria Hyaline Casts 05/12/24 05/12/24 05/12/24 21:10 21:10 21:10 WBC RBC Hgb Hct MCV MCH MCHC RDW Plt Count MPV Immature Gran % (Auto) Neut % (Auto) Lymph % (Auto) Cross % (Auto) Eos % (Auto) Baso % (Auto) Lymph # (Auto) Cross # (Auto) Eos # (Auto) Baso # (Auto) Abs Immat Gran (auto) Absolute Neuts (auto) Absolute Nucleated RBC Nucleated RBC % (auto) Neutrophils % (Manual) Band Neutrophils % Lymphocytes % (Manual) Atypical Lymphs % (Man) Monocytes % (Manual) Abs Neuts (Manual) Lymphocytes # (Manual) Atyp Lymphs # (Manual) Monocytes # (Manual) Platelet Estimate Large Platelets Plt Morphology Comment RBC Morphology Hypochromasia Microcytosis Acanthocytes (Spur) VBG pH VBG pCO2 VBG pO2 VBG HCO3 VBG O2 Saturation VBG Base Excess Sodium Potassium Chloride Carbon Dioxide Anion Gap BUN Creatinine Estim Creat Clear Calc Estimated GFR Cancelled Random Glucose 111 Cancelled Lactic Acid F/U @ 2Hr Lactic Acid F/U @ 4Hr Calcium 6.4 L D Cancelled Phosphorus Magnesium Total Bilirubin AST ALT Alkaline Phosphatase Total Creatine Kinase 11 L Total Protein Albumin Urine Color Urine Appearance Urine pH Ur Specific [place] Urine Protein Urine Glucose (UA) Urine Ketones Urine Blood Urine Nitrite Ur Leukocyte Esterase Urine RBC Urine WBC Ur Squamous Epith Cells Urine Bacteria Hyaline Casts 05/12/24 05/13/24 05/13/24 22:31 05:24 05:31 WBC 13.1 H RBC 3.20 L D Hgb 8.3 L D Hct 24.3 L D MCV 75.9 L MCH 25.9 L MCHC 34.2 RDW 16.5 H Plt Count 38 L MPV Not Reportable Immature Gran % (Auto) Cancelled Neut % (Auto) Cancelled Lymph % (Auto) Cancelled Cross % (Auto) Cancelled Eos % (Auto) Cancelled Baso % (Auto) Cancelled Lymph # (Auto) Cancelled Cross # (Auto) Cancelled Eos # (Auto) Cancelled Baso # (Auto) Cancelled Abs Immat Gran (auto) Cancelled Absolute Neuts (auto) Cancelled Absolute Nucleated RBC 0.000 Nucleated RBC % (auto) 0.0 Neutrophils % (Manual) 84 H Band Neutrophils % 4 Lymphocytes % (Manual) 9 L Atypical Lymphs % (Man) 1 Monocytes % (Manual) 2 Abs Neuts (Manual) 11.5 H Lymphocytes # (Manual) 1.2 Atyp Lymphs # (Manual) 0.1 Monocytes # (Manual) 0.3 Platelet Estimate DECREASED Large Platelets PRESENT Plt Morphology Comment NOTED RBC Morphology NOTED Hypochromasia 1+ (5-14) Microcytosis 2+ (15-30) Acanthocytes (Spur) 1+ (0-2) VBG pH 7.29 L 7.34 VBG pCO2 35 35 VBG pO2 36 33 VBG HCO3 17 L 19 L VBG O2 Saturation 58.0 51.0 VBG Base Excess -8.1 -5.4 Sodium 134 L Potassium 4.0 Chloride 103 Carbon Dioxide 18 L Anion Gap 17 BUN 69 H Creatinine 2.61 H Estim Creat Clear Calc 27.5 Estimated GFR 21 Random Glucose 86 Lactic Acid F/U @ 2Hr Lactic Acid F/U @ 4Hr Calcium 6.8 L D Phosphorus 6.7 H Magnesium 2.1 Total Bilirubin 0.6 AST 35 H ALT 9 Alkaline Phosphatase 130 H Total Creatine Kinase Total Protein 6.2 L Albumin 2.2 L Urine Color Urine Appearance Urine pH Ur Specific [place] Urine Protein Urine Glucose (UA) Urine Ketones Urine Blood Urine Nitrite Ur Leukocyte Esterase Urine RBC Urine WBC Ur Squamous Epith Cells Urine Bacteria Hyaline Casts Preliminary micro results at discharge 05/12/24 Unknown Urine Culture - Preliminary Urine clean catch - Clean Catch Midstream Culture too young to evaluate. Discharge Plan Discharge Anticipated Discharge Date/Time: 05/13/24 15:36 Patient Disposition: [facility] Discharge Diagnosis: Endocarditis Referrals: Physician,None [Primary Care Provider] - 1 Week Discharge Medications: Continued methadone [Methadone Intensol] 10 mg/mL Concentrate 195 mg PO DAILY Discharge Orders: Discharge Order (Routine); Ordered 05/13/24 Ordered By: Sergio Lucas Activity on Discharge: Bedrest Stand Alone Forms: Patient Portal Discharge page Print Language: Bol[place]ian Care Plan Goals: Evaluation for tricuspid valve replacement Health Concerns: Endocarditis of tricuspid valve Plan of Treatment: Evaluation for tricuspid valve replacement Assessment: Endocarditis of tricuspid valve
--- NOTE | 2024-05-13 15:59 | P.CONCA_ITS ---
History of Present Illness History of Present Illness Date of Service: 05/13/24 Requesting physician: Sergio Lucas Consult reason: other (Septic shock, tricuspid valve endocarditis) Chief complaint: Hypotension Narrative: I was consulted to see Roxann in cardiology consultation today as she presented with vague symptoms of abdominal discomfort and then painful feet with lesions and subsequently diagnose with septic shock requiring IV vasopressors along with IV fluids. She has been fluid resuscitated and been treated with Levophed with improved blood pressure hemodynamics. Continues to have pain in his feet with discoloration of her toes with blood cultures positive for Gram-positive bacteria which has been identified strep species. She subsequently had an echocardiogram which shows large vegetation in the anterior leaflet of the tricuspid valve with flail anterior leaflet with wide open tricuspid regurgitation. Patient is currently still feeling nauseous. No abdominal discomfort except for vague feeling in her abdomen. She denies any chest pain. Denies any shortness of breath. She came in with acute kidney injury with marked lactic acidosis, still having elevated lactic acid with normal troponins. Cardiology consult was sought for further management and plan. Patient is an active IV drug abuser. Has bilateral significant scarring related to RV side access including significant excoriated lesions on her both arms. She was also after IV hydration noted to have dilutional anemia. She also has marked leukocytosis. Review of Systems 2 Constitutional: Constitutional: Reports body ache(s), Reports chills, Reports fatigue, Reports fever(s) and Reports weakness Eyes: Eyes: Reports no additional eye complaints Cardiovascular: Cardiovascular: Denies chest pain, Denies lightheadedness, Denies Loss of Consciousness, Denies palpitations, Denies dyspnea and Denies orthopnea Respiratory: Respiratory: Reports no additional respiratory complaints and Denies dyspnea Gastrointestinal: Gastrointestinal: Reports nausea Musculoskeletal: Musculoskeletal: Reports myalgias Integumentary/Breasts: Skin/Breast: Reports system reviewed and no additional complaints, except as docu Neurologic: Reports system reviewed and no additional complaints, except as documented and Reports weakness Psychiatric: Psychiatric: Reports anxiety Endocrine: Endocrine: Reports fatigue and Denies palpitations PMFSH Past Medical History Medical History IV drug user Social History Social History Household Members: Family Housing Other:: pt states stays with sister Do you presently have visiting nurse or other home services: No Alcohol intake: never Patient Tobacco Use Status: Tobacco use Unknown Use of substances other than those prescribed or required for medical reasons: Yes Substance Use Type: Crack/Cocaine, Heroin, IV Drugs and Opiates Substance Use Frequency: Daily Last Used Substance: Days (ago) Currently Displaying Signs/Symptoms of Drug Intoxication Withdrawal: No Any prior treatment program specific to substance use: No Have you been hit, kicked, punched, or otherwise hurt by someone within the past year? If so, by whom?: No Advance Directives: No Advance Directives Information Provided: No Do you have a plan to hurt others: No Plan Recently lost weight without trying: Unsure Nutrition Risks: Poor intake 0-25% >4 days Patient : Yes Meds Allergies Allergy/AdvReac Type Severity Reaction Status Date / Time quetiapine [From Seroquel] AdvReac Dizziness Verified 05/12/24 10:06 Active Medications: Current Medications Acetaminophen (Acetaminophen 325 Mg Tablet) 650 mg PO Q6H PRN PRN Reason: Pain, Mild (Pain Scale 1-3) Last Admin: 05/13/24 11:52 Dose: 650 mg Ceftriaxone Sodium (Ceftriaxone Sodium 2 Gm Vial) 2 gm IVPUSH Q24H [facility] Last Admin: 05/13/24 11:35 Dose: 2 gm Norepinephrine Bitartrate (Levophed) 8 mg in 250 mls @ 0 mls/hr IVCONT .Q0M [facility]; Protocol Last Titration: 05/13/24 12:21 Dose: 0.05 mcg/kg/min, 5.48 mls/hr Albumin Human (Kedbumin 25 %) 100 mls @ 100 mls/hr IV Q6H [facility] Stop: 05/13/24 21:14 Last Admin: 05/13/24 15:04 Dose: 100 mls/hr Methadone HCl (Methadone Hcl 20 Mg/2 Ml Oral.Conc) 195 mg PO DAILY@0800 [facility] Last Admin: 05/13/24 07:31 Dose: 195 mg Sodium Chloride (0.9 % Sodium Chloride Flush 3 Ml Syringe) 3 ml IVFLUSH QSHIFT [facility] Last Admin: 05/13/24 15:11 Dose: 3 ml Home Medications ?Medication ?Instructions ?Recorded ?Confirmed ?Last Taken ?Type methadone 10 mg/mL oral 195 mg PO DAILY 05/12/24 05/12/24 05/11/24 History concentrate (Methadone Intensol) Physical Exam 2 Vital Signs: Vital Signs: Last Vital Signs Temp 97.4 F 05/13/24 08:00 Pulse 90 05/13/24 15:53 Resp 23 H 05/13/24 15:53 BP 103/65 05/13/24 15:53 Pulse Ox 93 05/13/24 14:00 O2 Del Method Room Air 05/13/24 15:53 O2 Flow Rate 1 05/12/24 15:50 BMI result Body Mass Index 21.5 Const: General: cooperative, alert, awake, anxious and ill appearing N utritional Appearance: thin Orientation/consciousness: patient oriented x3 Limitations: no limitations HEENT: Head: Yes normocephalic and Yes atraumatic Neck: Neck: Yes trachea midline, Yes supple and Yes no JVD Resp: Effort & Inspection: normal respiratory effort Auscultation: clear to auscultation bilaterally Cardio: Jugular venous distension: other (Pulsatile JVP) Rate: regular rate Rhythm: regular rhythm Heart sounds: S1 normal heart sound present, S2 normal heart sound present, no click, no gallops and Murmur heart sound present systolic early and at the right sternal border GI: Auscultation: normal bowel sounds Skin: General skin exam: Excoriation and other (Diffuse petechial lesion suggestive of immune complex with [place] lesion) Lesions: other (Diffuse skin scarring from IV drug abuse tract) Neuro: General: patient oriented x3 Objective Labs and Meds 05/13/24 05:24 05/13/24 05:24 Lab results: Laboratory Results - last 24 hr 05/12/24 05/12/24 05/12/24 18:04 21:10 21:10 WBC RBC Hgb Hct MCV MCH MCHC RDW Plt Count MPV Immature Gran % (Auto) Neut % (Auto) Lymph % (Auto) [place] % (Auto) Eos % (Auto) Baso % (Auto) Lymph # (Auto) [place] # (Auto) Eos # (Auto) Baso # (Auto) Abs Immat Gran (auto) Absolute Neuts (auto) Absolute Nucleated RBC Nucleated RBC % (auto) Neutrophils % (Manual) Band Neutrophils % Lymphocytes % (Manual) Atypical Lymphs % (Man) Monocytes % (Manual) Abs Neuts (Manual) Lymphocytes # (Manual) Atyp Lymphs # (Manual) Monocytes # (Manual) Platelet Estimate Large Platelets Plt Morphology Comment RBC Morphology Hypochromasia Microcytosis Acanthocytes (Spur) VBG pH VBG pCO2 VBG pO2 VBG HCO3 VBG O2 Saturation VBG Base Excess Sodium 132 L Cancelled Potassium 4.3 Chloride Carbon Dioxide Anion Gap BUN Creatinine Estim Creat Clear Calc Estimated GFR Random Glucose Lactic Acid F/U @ 4Hr 4.0 H* Calcium Phosphorus Magnesium Total Bilirubin AST ALT Alkaline Phosphatase Total Creatine Kinase Total Protein Albumin 05/12/24 05/12/24 05/12/24 21:10 21:10 21:10 WBC RBC Hgb Hct MCV MCH MCHC RDW Plt Count MPV Immature Gran % (Auto) Neut % (Auto) Lymph % (Auto) [place] % (Auto) Eos % (Auto) Baso % (Auto) Lymph # (Auto) [place] # (Auto) Eos # (Auto) Baso # (Auto) Abs Immat Gran (auto) Absolute Neuts (auto) Absolute Nucleated RBC Nucleated RBC % (auto) Neutrophils % (Manual) Band Neutrophils % Lymphocytes % (Manual) Atypical Lymphs % (Man) Monocytes % (Manual) Abs Neuts (Manual) Lymphocytes # (Manual) Atyp Lymphs # (Manual) Monocytes # (Manual) Platelet Estimate Large Platelets Plt Morphology Comment RBC Morphology Hypochromasia Microcytosis Acanthocytes (Spur) VBG pH VBG pCO2 VBG pO2 VBG HCO3 VBG O2 Saturation VBG Base Excess Sodium Potassium Cancelled Chloride 104 Cancelled Carbon Dioxide 14 L Cancelled Anion Gap 18 BUN Creatinine Estim Creat Clear Calc Estimated GFR Random Glucose Lactic Acid F/U @ 4Hr Calcium Phosphorus Magnesium Total Bilirubin AST ALT Alkaline Phosphatase Total Creatine Kinase Total Protein Albumin 05/12/24 05/12/24 05/12/24 21:10 21:10 21:10 WBC RBC Hgb Hct MCV MCH MCHC RDW Plt Count MPV Immature Gran % (Auto) Neut % (Auto) Lymph % (Auto) [place] % (Auto) Eos % (Auto) Baso % (Auto) Lymph # (Auto) [place] # (Auto) Eos # (Auto) Baso # (Auto) Abs Immat Gran (auto) Absolute Neuts (auto) Absolute Nucleated RBC Nucleated RBC % (auto) Neutrophils % (Manual) Band Neutrophils % Lymphocytes % (Manual) Atypical Lymphs % (Man) Monocytes % (Manual) Abs Neuts (Manual) Lymphocytes # (Manual) Atyp Lymphs # (Manual) Monocytes # (Manual) Platelet Estimate Large Platelets Plt Morphology Comment RBC Morphology Hypochromasia Microcytosis Acanthocytes (Spur) VBG pH VBG pCO2 VBG pO2 VBG HCO3 VBG O2 Saturation VBG Base Excess Sodium Potassium Chloride Carbon Dioxide Anion Gap Cancelled BUN 67 H Cancelled Creatinine 2.70 H Cancelled Estim Creat Clear Calc 26.6 Estimated GFR Random Glucose Lactic Acid F/U @ 4Hr Calcium Phosphorus Magnesium Total Bilirubin AST ALT Alkaline Phosphatase Total Creatine Kinase Total Protein Albumin 05/12/24 05/12/24 05/12/24 21:10 21:10 21:10 WBC RBC Hgb Hct MCV MCH MCHC RDW Plt Count MPV Immature Gran % (Auto) Neut % (Auto) Lymph % (Auto) [place] % (Auto) Eos % (Auto) Baso % (Auto) Lymph # (Auto) [place] # (Auto) Eos # (Auto) Baso # (Auto) Abs Immat Gran (auto) Absolute Neuts (auto) Absolute Nucleated RBC Nucleated RBC % (auto) Neutrophils % (Manual) Band Neutrophils % Lymphocytes % (Manual) Atypical Lymphs % (Man) Monocytes % (Manual) Abs Neuts (Manual) Lymphocytes # (Manual) Atyp Lymphs # (Manual) Monocytes # (Manual) Platelet Estimate Large Platelets Plt Morphology Comment RBC Morphology Hypochromasia Microcytosis Acanthocytes (Spur) VBG pH VBG pCO2 VBG pO2 VBG HCO3 VBG O2 Saturation VBG Base Excess Sodium Potassium Chloride Carbon Dioxide Anion Gap BUN Creatinine Estim Creat Clear Calc Cancelled Estimated GFR 20 Cancelled Random Glucose 111 Cancelled Lactic Acid F/U @ 4Hr Calcium 6.4 L D Phosphorus Magnesium Total Bilirubin AST ALT Alkaline Phosphatase Total Creatine Kinase Total Protein Albumin 05/12/24 05/12/24 05/13/24 21:10 22:31 05:24 WBC 13.1 H RBC 3.20 L D Hgb 8.3 L D Hct 24.3 L D MCV 75.9 L MCH 25.9 L MCHC 34.2 RDW 16.5 H Plt Count 38 L MPV Not Reportable Immature Gran % (Auto) Cancelled Neut % (Auto) Cancelled Lymph % (Auto) Cancelled [place] % (Auto) Cancelled Eos % (Auto) Cancelled Baso % (Auto) Cancelled Lymph # (Auto) Cancelled [place] # (Auto) Cancelled Eos # (Auto) Cancelled Baso # (Auto) Cancelled Abs Immat Gran (auto) Cancelled Absolute Neuts (auto) Cancelled Absolute Nucleated RBC 0.000 Nucleated RBC % (auto) 0.0 Neutrophils % (Manual) 84 H Band Neutrophils % 4 Lymphocytes % (Manual) 9 L Atypical Lymphs % (Man) 1 Monocytes % (Manual) 2 Abs Neuts (Manual) 11.5 H Lymphocytes # (Manual) 1.2 Atyp Lymphs # (Manual) 0.1 Monocytes # (Manual) 0.3 Platelet Estimate DECREASED Large Platelets PRESENT Plt Morphology Comment NOTED RBC Morphology NOTED Hypochromasia 1+ (5-14) Microcytosis 2+ (15-30) Acanthocytes (Spur) 1+ (0-2) VBG pH 7.29 L VBG pCO2 35 VBG pO2 36 VBG HCO3 17 L VBG O2 Saturation 58.0 VBG Base Excess -8.1 Sodium 134 L Potassium 4.0 Chloride 103 Carbon Dioxide 18 L Anion Gap 17 BUN 69 H Creatinine 2.61 H Estim Creat Clear Calc 27.5 Estimated GFR 21 Random Glucose 86 Lactic Acid F/U @ 4Hr Calcium Cancelled 6.8 L D Phosphorus 6.7 H Magnesium 2.1 Total Bilirubin 0.6 AST 35 H ALT 9 Alkaline Phosphatase 130 H Total Creatine Kinase 11 L Total Protein 6.2 L Albumin 2.2 L 05/13/24 05:31 WBC RBC Hgb Hct MCV MCH MCHC RDW Plt Count MPV Immature Gran % (Auto) Neut % (Auto) Lymph % (Auto) [place] % (Auto) Eos % (Auto) Baso % (Auto) Lymph # (Auto) [place] # (Auto) Eos # (Auto) Baso # (Auto) Abs Immat Gran (auto) Absolute Neuts (auto) Absolute Nucleated RBC Nucleated RBC % (auto) Neutrophils % (Manual) Band Neutrophils % Lymphocytes % (Manual) Atypical Lymphs % (Man) Monocytes % (Manual) Abs Neuts (Manual) Lymphocytes # (Manual) Atyp Lymphs # (Manual) Monocytes # (Manual) Platelet Estimate Large Platelets Plt Morphology Comment RBC Morphology Hypochromasia Microcytosis Acanthocytes (Spur) VBG pH 7.34 VBG pCO2 35 VBG pO2 33 VBG HCO3 19 L VBG O2 Saturation 51.0 VBG Base Excess -5.4 Sodium Potassium Chloride Carbon Dioxide Anion Gap BUN Creatinine Estim Creat Clear Calc Estimated GFR Random Glucose Lactic Acid F/U @ 4Hr Calcium Phosphorus Magnesium Total Bilirubin AST ALT Alkaline Phosphatase Total Creatine Kinase Total Protein Albumin Conclusions: - 1. Large vegetation of the anterior leaflet of the tricuspid valve with flail anterior leaflet with wide open tricuspid regurgitation 2. Dilated right-sided chambers with preserved RV contractility 3. Normal LV ejection fraction of 60 65% 4. No gross pericardial effusion Assessment and Plan (1) Shock: Status: Acute Patient present with shock with evidence of septic shock which responded to IV fluid therapy and vasopressor but also component of possibly cardiogenic component related to acutely flail tricuspid leaflet with wide-open tricuspid regurgitation affecting RV function. Currently supportive care has been provided with IV vasopressors. IVC is not dilated and I would consider to continue aggressive IV hydration. Continue management of shock. Continue aggressive antibiotic therapy. Given her acute flail tricuspid valve leaflet will require Cardiothoracic evaluation transferred to [facility]. This was discussed with her. Case was also discussed with CICU attending Dr. Gan at [facility] who has accepted the patient. Will require supportive care and Cardiothoracic Surgical evaluation once at [facility]. (2) Infective endocarditis of tricuspid valve: Status: Acute Endocarditis of tricuspid valve most likely related to IV drug abuse currently with stress species probably from the skin. She was flail tricuspid valve leaflet with wide open tricuspid regurgitation will require surgery evaluation for tricuspid valve surgery with possible prosthetic valve replacement. Discussed with the patient that use of IV drugs in the setting carries very high mortality. She says she wants to live and will not use IV drug. Will require drug counseling and consultation. Continue aggressive IV antibiotic therapy. Continue supportive care. Case discussed with ICU team. Will sign off. Procedures Date of Service Date of Service: 05/13/24
[2024-05-13] MEDS: ondansetron HCL 4 MG/2 ML VIAL IVPUSH ×2 (16:41→21:59)
[2024-05-13] MEDS: HYDROmorphone HCl 0.5 MG/0.5 ML SYRINGE IVPUSH ×2 (16:41→22:00)
--- NOTE | 2024-05-13 23:31 | PC.NURSE ---
CARE ASSUMED 7PM..ALERT..ORIENTED X3..RESTFUL...LEVOPHED 0.05 MCG/KG/MIN VIA RIGHT JUGULAR TLC...O2 1 L/M WITH SAO2 99%...MEDICATED WITH PRN DILAUDID AND ZOFRAN FOR C/O BACK AND BILATERAL FEET PAIN...BILATERAL LATERAL TOES BLACKENED PER SHIFT REPORT..PALPAPLE PEDAL PULSES PRESENT..REPORT CALLED TO ERIC AT [facility]..TO TRANSFER TO ROOM 14..GROUND TRANSPORT PENDING
--- NOTE | 2024-05-14 00:36 | PC.NURSE ---
TRANSFERRED VIA [facility] TO [facility]
== END 2024-05-14 00:31 | disposition short-term general hospital (02) | DRG 720 ==
LOC: HO.ED 23:15 → HO.EDOVER 05-13 00:14 → HO.ICU 05-13 00:58
PROVIDERS: Emergency Medicine; Student in an Organized Health Care Education/Training Program; Admitting Provider Registered Nurse Community Health; Emergency Provider Internal Medicine; Visit Provider Internal Medicine Critical Care Medicine
DX: A41.9 Sepsis, unspecified organism (principal); I33.0 Acute and subacute infective endocarditis; F11.20 Opioid dependence, uncomplicated; I70.208 Unspecified atherosclerosis of native arteries of extremities, other extremity; D69.59 Other secondary thrombocytopenia; I07.1 Rheumatic tricuspid insufficiency; B95.0 Streptococcus, group A, as the cause of diseases classified elsewhere
CPT/HCPCS: 36415; 71045; 72148; 72158; 74176; 80048; 80053; 80307; 81001; 81025; 82248; 82550; 82803; 83605; 83735; 84100; 84484; 84702; 85007; 85027; 87040; 87086; 87147; 87205; 93005; 93306; 99285; A9585; J0613; J0696; J1171; J2405; J2543; J3010; J3371; J7120; P9047

== ENCOUNTER → 2024-05-12 10:09 | Outpatient (BNV) | payer MEDICAID, SELFPAY | PROVIDERS: Admitting Provider Registered Nurse Community Health; Emergency Provider Internal Medicine; Visit Provider Internal Medicine Cardiovascular Disease | DX: R00.0 Tachycardia, unspecified (principal) | CPT/HCPCS: 93010 ==

== ENCOUNTER → 2024-05-12 11:12 | Outpatient (BNV) | payer MEDICAID, SELFPAY | PROVIDERS: Emergency Provider Emergency Medicine; Visit Provider Radiology Vascular & Interventional Radiology | DX: M51.369 Other intervertebral disc degeneration, lumbar region without mention of lumbar back pain or lower extremity pain (principal); R10.9 Unspecified abdominal pain; A41.9 Sepsis, unspecified organism; M54.50 Low back pain, unspecified; J18.9 Pneumonia, unspecified organism; Z45.2 Encounter for adjustment and management of vascular access device | CPT/HCPCS: 71045; 72148; 72158 ==

== ENCOUNTER 2024-05-13 00:08 | Outpatient (BNV) | payer MEDICAID, SELFPAY | END 2024-05-13 07:00 | PROVIDERS: Admitting Provider Registered Nurse Community Health; Emergency Provider Internal Medicine; Visit Provider Internal Medicine Cardiovascular Disease | DX: I36.8 Other nonrheumatic tricuspid valve disorders (principal); I36.1 Nonrheumatic tricuspid (valve) insufficiency; R78.81 Bacteremia | CPT/HCPCS: 93306 ==

== ENCOUNTER → 2024-05-13 00:08 | Outpatient (BNV) | payer MEDICAID, SELFPAY | PROVIDERS: Admitting Provider Registered Nurse Community Health; Emergency Provider Internal Medicine; Visit Provider Internal Medicine Pulmonary Disease | DX: A41.9 Sepsis, unspecified organism (principal); R65.21 Severe sepsis with septic shock; N17.9 Acute kidney failure, unspecified; F19.90 Other psychoactive substance use, unspecified, uncomplicated; I33.0 Acute and subacute infective endocarditis; I70.208 Unspecified atherosclerosis of native arteries of extremities, other extremity | CPT/HCPCS: 99239 ==

== ENCOUNTER → 2024-05-13 00:08 | Outpatient (BNV) | payer MEDICAID, SELFPAY | PROVIDERS: Admitting Provider Registered Nurse Community Health; Emergency Provider Internal Medicine; Visit Provider Internal Medicine Cardiovascular Disease | DX: R57.9 Shock, unspecified (principal); I33.0 Acute and subacute infective endocarditis | CPT/HCPCS: 99223 ==

== ENCOUNTER 2024-08-01 21:23 | Inpatient (IN) | payer OTHER, SELFPAY ==
--- NOTE | ~2024-08-01 | XR_ITS ---
CLINICAL HISTORY: febrile, altered, s p central line placement 1 view chest x-ray Comparison: CR/TN - XR CHEST 1V - 05/12/24 18:09 EST Findings: Small right pleural effusion. Patchy opacities in the right peripheral lower lobe and left mid lung. No pneumothorax. Heart size is normal. Right IJ central venous catheter tip is in the SVC. No acute fracture. IMPRESSION: 1. Small right pleural effusion. 2. Patchy opacities in the right peripheral lower lobe and left mid lung concerning for pneumonia. This document has been electronically signed by: Shantanu Magallanes MD on 08/02/2024 01:51:57
--- NOTE | ~2024-08-01 | CT_ITS ---
CLINICAL HISTORY: sepsis CT abdomen and pelvis without contrast Comparison: CT/SR - CT ABDOMEN PELVIS WO IV CON - 05/12/24 13:29 EST Findings: This examination is degraded by artifact related to the patient's arms and structures external to the patient. The liver is enlarged. The liver appears normal in contour. Limited visualization of the gallbladder on this examination due to artifact. The gallbladder wall is not well visualized and subtle gallbladder wall thickening is not excluded. The spleen, pancreas, and bilateral adrenal glands are unremarkable in appearance given the exam limitations. No radiopaque renal calculi are appreciated. There is minimal left hydronephrosis. There may also be minimal right hydronephrosis. Evaluation of the right kidney is degraded by artifact. The ureters are poorly visualized on this exam. No bowel obstruction, pneumoperitoneum, or pneumatosis. Limited evaluation of the pelvic structures is unremarkable. Tucker catheter in place within the bladder lumen. The bladder is underdistended, limiting its evaluation. Nonvisualization of the appendix. The bones are intact. IMPRESSION: Limited examination due to artifact as described above. There is minimal left hydronephrosis with possible minimal right hydronephrosis. This is of uncertain etiology. Limited visualization of the gallbladder due to artifact. Subtle gallbladder wall thickening is not excluded on this examination. If there is clinical concern for acute cholecystitis recommend gallbladder ultrasound examination and/or nuclear medicine HIDA scan for further evaluation. Hepatomegaly redemonstrated. This document has been electronically signed by: Gary Terrazas MD on 08/02/2024 03:59:01
--- NOTE | ~2024-08-01 | CT_ITS ---
CLINICAL HISTORY: hypoxia CT chest without contrast Comparison: CR - XR CHEST 1V - 08/02/24 00:34 EDT Findings: The heart is borderline enlarged. No thoracic aorta aneurysm. There are enlarged bilateral axillary lymph nodes. 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 Small right pleural effusion present which may be partially loculated. There appears to be adjacent pleural thickening. Mild underlying right lower lobe opacities are present. Interlobular septal thickening identified within the bilateral lungs with mild, patchy opacities throughout the bilateral lungs, most prominent at the bilateral subpleural regions. No acute fractures. There is diffuse body wall edema. Impression: 1. Borderline cardiomegaly with a small, partially loculated right pleural effusion. There appears to be adjacent pleural thickening, suggesting some degree of chronicity. There are mild underlying right lower lobe opacities which may represent sequela of rounded atelectasis or pneumonia. 2. Interlobular septal thickening identified within the bilateral lungs which may be seen in the setting of pulmonary edema. There are mild, patchy opacities throughout the bilateral lungs which appear to be predominantly subpleural in location these findings are nonspecific but may be seen in the setting of multifocal infectious/inflammatory infiltrates. 3. Enlarged bilateral axillary lymph nodes. 4. Generalized 3rd spacing of fluid with diffuse body wall edema. This document has been electronically signed by: Gary Terrazas MD on 08/02/2024 04:03:53
--- NOTE | 2024-08-01 22:14 | PC.NURSE ---
Security at bedside for changeover.
--- NOTE | 2024-08-01 22:23 | ED.FEVER ---
HPI - Fever General Chief Complaint: General Medical Stated Complaint: substance use, refusing vitals Time Seen by Provider: 08/01/24 22:23 Source: patient and EMS Mode of arrival: EMS Limitations: altered mental status History of Present Illness ED Provider: Richar Pelayo DO HPI Narrative: 33-year-old female who requires my immediate attention or illness presents to the ED via EMS after she was found in an alleyway, screaming for help, reporting that she ingested unknown amount of pills. Or obtain vital signs due to patient combativeness prior to arrival. History shows the patient has had infective endocarditis of the tricuspid valve with polysubstance abuse, previous septic shock and bacteremia. History is unobtainable from the patient secondary to her current state. When asked what is causing pain she does report pain over the left arm and states that she is ?going to ?. Related Data Home Medications ?Medication ?Instructions ?Recorded ?Confirmed methadone 10 mg/mL oral 195 mg PO DAILY 05/12/24 05/12/24 concentrate (Methadone Intensol) Allergies Allergy/AdvReac Type Severity Reaction Status Date / Time quetiapine [From Seroquel] AdvReac Dizziness Verified 08/01/24 22:29 Review of Systems Review of Systems: Yes Unobtainable due to mental condition PMFSH Past Medical History Medical History Severe low back pain Sepsis Pneumonia IV drug user Social History Social History Household Members: Family Housing Other:: pt states stays with sister Do you presently have visiting nurse or other home services: No Unable to assess alcohol history related to: Unable to respond and Refusing to respond Alcohol intake: never Patient Tobacco Use Status: Tobacco use Unknown Use of substances other than those prescribed or required for medical reasons: Refusing to respond Substance Use Type: Crack/Cocaine, Heroin, IV Drugs and Opiates Advance Directives: No Advance Directives Information Provided: No Do you have a plan to hurt others: No Plan Physical Exam Vital Signs: Vital Signs: Last Vital Signs Temp 98.1 F 08/02/24 01:58 Pulse 84 08/02/24 02:18 Resp 19 08/02/24 02:18 BP 109/69 08/02/24 02:18 Pulse Ox 97 08/02/24 02:18 O2 Del Method Room Air 08/02/24 02:18 O2 Flow Rate 2 08/02/24 01:31 BMI result Body Mass Index 15.1 Constitutional: ?Thrashing about the bed with all 4 extremities, awake, dry heaving at times, yelling unable to speak in full sentences HEENT: ?Normocephalic, atraumatic. Very poor dentition Eyes: ?PERRL, EOMI Neck: ?Supple, nontender Chest: ?No chest wall tenderness Respiratory: ?Lungs clear to auscultation, no increased work of breathing Cardio: ?Tachycardic rate. 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 There are severely scarred skin findings located over the bilateral arms, left side greater than the right over the forearms with open wounds without discharge. Neuro: ?Alert and oriented to person, place and time, moves all 4 extremities, no focal deficits Extremities: ?No swelling or tenderness, full range of motion Psych: ?Calm, alert and cooperative, appropriate behavior Medications Administered Generic Name Dose Route Start Last Admin Trade Name Freq PRN Reason Stop Dose Admin Dexmedetomidine HCl 400 mcg in 100 mls @ 0 mls/hr 08/02/24 00:15 08/02/24 00:26 Precedex IVCONT 1 mcg/kg/hr .Q0M JONNY 9.08 mls/hr Administration Protocol Per Protocol Norepinephrine Bitartrate 8 mg in 250 mls @ 0 mls/hr 08/02/24 01:30 08/02/24 01:44 Levophed IVCONT 0.09 mcg/kg/min .Q0M JONNY 6.13 mls/hr Titration Protocol Per Protocol Discontinued Medications Generic Name Dose Route Start Last Admin Trade Name Freq PRN Reason Stop Dose Admin Acetaminophen 650 mg 08/01/24 22:28 08/01/24 22:44 Acetaminophen Supp 650 Mg Supp.Rect FL 08/01/24 22:29 Not Given ONCE ONE Droperidol 1.25 mg 08/01/24 22:34 08/01/24 22:41 Droperidol 5 Mg/2 Ml Vial IM 08/01/24 22:35 1.25 mg ONCE ONE Administration Lactated Ringer's 1,500 mls @ 1,500 mls/hr 08/01/24 22:23 08/02/24 00:12 Lr IVCONT 08/01/24 23:22 Infused .Q1H ONE Infusion Cefepime HCl 2 gm in 50 mls @ 100 mls/hr 08/01/24 22:23 08/01/24 23:20 Maxipime IV 08/01/24 22:52 Infused ONCE ONE Infusion Vancomycin HCl 1,000 mg/ 270 mls @ 270 mls/hr 08/01/24 22:23 08/02/24 01:30 Sodium Chloride IV 08/01/24 23:22 Infused ONCE ONE Infusion Acetaminophen 1,000 mg in 100 mls @ 400 mls/hr 08/01/24 22:50 08/02/24 00:12 Ofirmev IV 08/01/24 23:04 Infused ONCE ONE Infusion Lactated Ringer's 1,000 mls @ 999 mls/hr 08/02/24 00:45 08/02/24 01:43 Lr IV 08/02/24 01:45 Infused .Q1H1M JONNY Infusion Midazolam HCl 5 mg 08/01/24 22:34 08/01/24 22:42 Midazolam Hcl 5 Mg/Ml Vial IM 08/01/24 22:35 5 mg ONCE ONE Administration Midazolam HCl 2 mg 08/02/24 00:13 08/02/24 00:00 Midazolam Hcl 2 Mg/2 Ml Vial IVPUSH 08/02/24 00:14 2 mg ONCE ONE Administration Midazolam HCl 2 mg 08/02/24 00:13 08/01/24 23:50 Midazolam Hcl 2 Mg/2 Ml Vial IVPUSH 08/02/24 00:14 2 mg ONCE ONE Administration Midazolam HCl 2 mg 08/02/24 00:13 08/02/24 00:02 Midazolam Hcl 2 Mg/2 Ml Vial IVPUSH 08/02/24 00:14 2 mg ONCE ONE Administration Procedures Central Line Placement Right IJ: Time Out Performed: Yes Patient Placed on Monitor/Pulse Ox: Yes MD Prep: mask, gown and gloves Central Line Prep: Chlorhexidine scrub and sterile drapes applied Local Anesthetic: lidocaine 1% Amount of anesthesia used (mL): 5 Ultrasound Used for Placement: Yes Central Line Lumen Inserted: triple (7) Post Procedure: sutured in place, good blood return, all ports aspirated, flushed, capped and sterile dressing applied Post Procedure X-Ray: tip of catheter in good position and no pneumothorax seen Patient Tolerated Procedure: other (Patient was thrashing and became combative near the end of the procedure requiring more sedation, otherwise tolerated procedure well) Complications: none Medical Decision Making Medical Decision Making MDM Narrative: Critically ill patient intoxicated and combative presenting with a febrile illness and found to be in septic shock which was responsive to multiple boluses of IV fluids over 30 cc/kg. Nursing staff immediately obtained IV access of the bilateral dorsal feet. Sepsis protocol was initially placed at 22:27 shortly after arrival. The patient rapidly improved after droperidol and midazolam in order to obtain vital signs and place IVs. Blood cultures immediately drawn and the patient is started on cefepime 2 g and vancomycin 1000 mg keeping with her low body weight. ECG per my independent interpretation shows in beats per minute, low voltage in the limb leads, normal axis, some T-wave inversions in the anterior leads and overall nonspecific T-wave abnormalities. Unable to obtain further axis and therefore a central line was placed in the right IJ. Postprocedure chest x-ray per my independent interpretation shows central catheter in the SVC as well as patchy infiltrate bilaterally. Given the patient's previous infective endocarditis, there is very high suspicion for recurrent endocarditis with dry gangrene about the feet, IV drug use and a murmur on exam as well as a fever with no obvious other cause including meningitis, pneumonia, spinal abscess or intra-abdominal pathology. The patient required multiple doses of midazolam for sedation during central line placement. Given the continued combativeness likely in the setting of polysubstance intoxication and withdrawal, the patient was then placed on a Precedex drip. Labs returned with a mild leukocytosis, mild baseline anemia, no significant bandemia, no acidosis, grossly unremarkable metabolic panel as well as including troponin and lipase. Ammonia level elevated due to initial concern for encephalopathy although the patient prove to not be encephalopathic during her combativeness with further evaluation. She was redirectable at times but was largely combative requiring for the sedation. She has been protecting her airway throughout. No Hypoxia noted. Urine drug screen returns with opiates, fentanyl, methanol and cocaine. After the patient received IV fluids and antibiotic therapy as well as central line placement, academic support specialist was at the bedside and accepts transfer of care. Admission/Observation Consideration of admission/observation: Escalation of care including admission/observation considered Lab Data 08/01/24 22:49 08/01/24 22:49 Labs: Lab Results 08/01/24 08/01/24 08/01/24 Range/Units 22:44 22:49 22:49 WBC 11.6 H (4.8-10.8) X10*3/uL RBC 3.93 L D (4.20-5.50) X10*6/uL Hgb 10.9 L D (12.0-16.0) g/dl Hct 33.1 L D (37.0-47.0) % MCV 84.2 (80.0-98.0) fL MCH 27.7 (27.0-33.0) pg MCHC 32.9 (31.0-35.0) g/dl RDW 17.1 H (11.0-16.0) % Plt Count 319 D (160-400) X10*3/uL MPV 9.4 (9.4-12.3) fL Immature Gran % (Auto) 0.4 (0.0-0.4) % Neut % (Auto) 73.1 H (45-73) % Lymph % (Auto) 17.2 L (20-40) % [place] % (Auto) 8.7 (2-11) % Eos % (Auto) 0.3 (0-4) % Baso % (Auto) 0.3 (0-2) % Lymph # (Auto) 2.0 (1.2-4.9) X10*3/uL [place] # (Auto) 1.0 (0.1-1.2) X10*3/uL Eos # (Auto) 0.0 (0.0-0.4) X10*3/uL Baso # (Auto) 0.0 (0.0-0.2) X10*3/uL Abs Immat Gran (auto) 0.05 H (0.00-0.03) X10*3/uL Absolute Neuts (auto) 8.5 H (2.0-8.3) x10*3/uL Absolute Nucleated RBC 0.000 (0.0-0.012) X10*3/uL Nucleated RBC % (auto) 0.0 (0.0-0.2) /100WBC PT 17.6 H (10.9-12.4) SEC INR 1.5 H (0.9-1.1) APTT 31.6 (26.0-36.8) SEC VBG pH (7.32-7.43) VBG pCO2 mmHg VBG pO2 mmHg VBG HCO3 (22-26) mmol/L VBG O2 Saturation % VBG Base Excess mmol/L Sodium 134 L (135-145) mmol/L Potassium 4.0 (3.3-5.1) mmol/L Chloride 99 (96-108) mmol/L Carbon Dioxide 24 (22-29) mmol/L Anion Gap 15 (12-20) BUN 15 (9-16) mg/dL Creatinine 0.67 (0.5-1.4) mg/dL Estim Creat Clear Calc 68.4 Estimated GFR > 60 POC Glucose 116 H (60-115) mg/dL Random Glucose 112 (60-115) mg/dL Lactic Acid 1.8 (0.5-2.0) mmol/L Calcium 9.0 D (8.4-10.2) mg/dL Total Bilirubin 0.7 (0.0-1.0) mg/dL Direct Bilirubin 0.2 (0.0-0.5) mg/dL AST 42 H (5-31) U/L ALT 16 (0-31) U/L Alkaline Phosphatase 86 (39-117) U/L Ammonia 68 H (13-55) umol/L Troponin I High Sens < 2.7 D (<3.5-17.0) ng/L Total Protein 7.7 (6.5-8.0) g/dL Albumin 3.6 (3.5-5.0) g/dL Lipase 7 L (8-78) U/L Salicylates < 5.0 L (15-30) mg/dL Acetaminophen < 3 (<30) mcg/mL Ethyl Alcohol < 10 Cancelled mg/dL Influenza Type A (PCR) (Negative) Influenza Type B (PCR) (Negative) RSV RNA Qual (PCR) (Negative) SARS-CoV-2 RNA (RT-PCR) (Negative) 04/10/25 04/10/25 Range/Units 23:05 23:13 WBC (4.8-10.8) X10*3/uL RBC (4.20-5.50) X10*6/uL Hgb (12.0-16.0) g/dl Hct (37.0-47.0) % MCV (80.0-98.0) fL MCH (27.0-33.0) pg MCHC (31.0-35.0) g/dl RDW (11.0-16.0) % Plt Count (160-400) X10*3/uL MPV (9.4-12.3) fL Immature Gran % (Auto) (0.0-0.4) % Neut % (Auto) (45-73) % Lymph % (Auto) (20-40) % [place] % (Auto) (2-11) % Eos % (Auto) (0-4) % Baso % (Auto) (0-2) % Lymph # (Auto) (1.2-4.9) X10*3/uL [place] # (Auto) (0.1-1.2) X10*3/uL Eos # (Auto) (0.0-0.4) X10*3/uL Baso # (Auto) (0.0-0.2) X10*3/uL Abs Immat Gran (auto) (0.00-0.03) X10*3/uL Absolute Neuts (auto) (2.0-8.3) x10*3/uL Absolute Nucleated RBC (0.0-0.012) X10*3/uL Nucleated RBC % (auto) (0.0-0.2) /100WBC PT (10.9-12.4) SEC INR (0.9-1.1) APTT (26.0-36.8) SEC VBG pH 7.54 H (7.32-7.43) VBG pCO2 30 mmHg VBG pO2 86 mmHg VBG HCO3 26 (22-26) mmol/L VBG O2 Saturation 100.0 % VBG Base Excess 4.2 mmol/L Sodium (135-145) mmol/L Potassium (3.3-5.1) mmol/L Chloride (96-108) mmol/L Carbon Dioxide (22-29) mmol/L Anion Gap (12-20) BUN (9-16) mg/dL Creatinine (0.5-1.4) mg/dL Estim Creat Clear Calc Estimated GFR POC Glucose (60-115) mg/dL Random Glucose (60-115) mg/dL Lactic Acid (0.5-2.0) mmol/L Calcium (8.4-10.2) mg/dL Total Bilirubin (0.0-1.0) mg/dL Direct Bilirubin (0.0-0.5) mg/dL AST (5-31) U/L ALT (0-31) U/L Alkaline Phosphatase (39-117) U/L Ammonia (13-55) umol/L Troponin I High Sens (<3.5-17.0) ng/L Total Protein (6.5-8.0) g/dL Albumin (3.5-5.0) g/dL Lipase (8-78) U/L Salicylates (15-30) mg/dL Acetaminophen (<30) mcg/mL Ethyl Alcohol mg/dL Influenza Type A (PCR) NEGATIVE (Negative) Influenza Type B (PCR) NEGATIVE (Negative) RSV RNA Qual (PCR) NEGATIVE (Negative) SARS-CoV-2 RNA (RT-PCR) NEGATIVE (Negative) Critical Care Time Critical Care Time Critical Care Time: Yes Total Critical Care Time: 60 Attestation: Richar Pelayo DO Patient required immediate attention due to high rectal fever, hypotension, combativeness and evident intoxication. She required multiple evaluations, sedation in order to perform procedures, obtain vital signs and place intravenous catheters. She required hemodynamic management with IV fluids and sedation with dexmedetomidine drip. Interpretations included chest x-ray, ECG and blood pressure. Case reviewed with ICU attending. Discharge Plan Discharge Clinical Impression: Septic shock, IV drug user, Infective endocarditis of tricuspid valve, Ischemia of both feet, Polysubstance abuse Patient Disposition: Admitted As Inpatient
[2024-08-01 22:24] VITALS: BP 113/67; PULSE 114; RESP 20; TEMP 40; O2SAT 94; BMI 15.1
[2024-08-01] MEDS: droPERidol 5 MG/2 ML VIAL 1.25 MG IM (22:41)
[2024-08-01] MEDS: Midazolam HCl 5 MG/ML VIAL IM (22:42)
[2024-08-01] MEDS: Lactated Ringers 1,500 ML 1500 ML IVCONT (22:44)
[2024-08-01 22:49] LABS: Glucose, Whole Blood 116 mg/dL (60-115)
--- NOTE | 2024-08-01 22:50 | ECG_ITS ---
Test Reason : SEPSIS Blood Pressure : */* mmHG Vent. Rate : 113 BPM Atrial Rate : 113 BPM P-R Int : 140 ms QRS Dur : 82 ms QT Int : 330 ms P-R-T Axes : 68 76 73 degrees QTcB Int : 452 ms Sinus tachycardia Possible Left atrial enlargement Nonspecific T wave abnormality Abnormal ECG When compared with ECG of 12-May-2024 10:13, ST no longer depressed in Anterior leads Non-specific change in ST segment in Lateral leads T wave inversion now evident in Lateral leads Referred By: Richar Pelayo Electronically Signed By: Julio C Kumar
[2024-08-01] MEDS: cefEPime HCl/D5W 2 GM/50 ML PIGGYBACK IV (22:51)
[2024-08-01 22:57] LABS: MANUAL DIFF FLAG NO
--- NOTE | 2024-08-01 23:00 | PC.NURSE ---
Pt noted to be an extremely difficult stick due to severely infected wounds to bilat arms due to history of IVDU. IV established to R foot by this RN, labs, IVF and first set of BCX obtained. at bedside, requesting to hang ABX despite only obtaining first set of BCX due to extremely difficult access. U/S IV attempts by unsuccessful.
[2024-08-01 23:01] LABS: Basophils Percent Auto 0.3 % (0-2); Eosinophils Percent Auto 0.3 % (0-4); Hematocrit 33.1 % (37.0-47.0); Hemoglobin 10.9 g/dl (12.0-16.0); Imm Gran Abs Auto 0.05 X10*3/uL (0.00-0.03); Imm Gran Pct Auto 0.4 % (0.0-0.4); Lymphocytes Percent Auto 17.2 % (20-40); Mean Corpuscular HGB Conc 32.9 g/dl (31.0-35.0); Mean Corpuscular Hemoglobin 27.7 pg (27.0-33.0); Mean Corpuscular Volume 84.2 fL (80.0-98.0); Mean Platelet Volume 9.4 fL (9.4-12.3); Monocytes Percent Auto 8.7 % (2-11); Neutrophils Absolute Auto 8.5 x10*3/uL (2.0-8.3); Neutrophils Percent Auto 73.1 % (45-73); Platelet Count 319 X10*3/uL (160-400); Red Blood Count 3.93 X10*6/uL (4.20-5.50); Red Cell Distribution Width 17.1 % (11.0-16.0); White Blood Count 11.6 X10*3/uL (4.8-10.8)
--- NOTE | 2024-08-01 23:01 | PC.NURSE ---
Report given at this time. Informed on pt. plan of care.
[2024-08-01 23:06] LABS: INTERNATIONAL NORM RATIO 1.5 (0.9-1.1); Prothrombin Time 17.6 SEC (10.9-12.4)
[2024-08-01 23:09] LABS: Partial Thromboplastin Time 31.6 SEC (26.0-36.8)
[2024-08-01 23:10] VITALS: BP 107/47; PULSE 110; RESP 19
[2024-08-01 23:11] LABS: Venous Blood Gas Refer to POC result
[2024-08-01 23:17] LABS: Lactic Acid 1.8 mmol/L (0.5-2.0)
[2024-08-01 23:18] LABS: VBG Base Excess 4.2 mmol/L; VBG HCO3 26 mmol/L (22-26); VBG pCO2 30 mmHg; VBG pH 7.54 (7.32-7.43); VBG pO2 86 mmHg
[2024-08-01 23:19] LABS: Acetaminophen LAB < 3 mcg/mL (<30); Anion Gap 15 (12-20); Bilirubin Total 0.7 mg/dL (0.0-1.0); Blood Urea Nitrogen 15 mg/dL (9-16); Carbon Dioxide 24 mmol/L (22-29); Chloride 99 mmol/L (96-108); Creatinine Clr Calc Pharmacy 68.4; Estimated Glomerular Filt Rate > 60; Ethanol < 10 mg/dL; Glucose Random 112 mg/dL (60-115); Lipase 7 U/L (8-78); Salicylate < 5.0 mg/dL (15-30); Sodium 134 mmol/L (135-145)
[2024-08-01] MEDS: Acetaminophen 1,000 MG/100 ML PIGGYBACK 400 MG IV (23:25)
[2024-08-01 23:33] LABS: Troponin-I High Sensitivity < 2.7 ng/L (<3.5-17.0)
--- NOTE | 2024-08-01 23:47 | PC.NURSE ---
doctor at bedside to place central line to right,per md pt to be given 2mg versed prior to procedure, time out done at this time
[2024-08-01 23:48] VITALS: BP 107/48; PULSE 105; RESP 31; O2SAT 100
[2024-08-01] MEDS: Midazolam HCl 2 MG/2 ML VIAL IVPUSH (23:50)
[2024-08-01 23:51] LABS: Influenza A PCR NEGATIVE (Negative); Influenza B PCR NEGATIVE (Negative); Resp Syncy Virus RNA Qual PCR NEGATIVE (Negative); SARS COV2 PCR INHOUSE NEGATIVE (Negative)
[2024-08-02] VITALS (44 sets, daily range): BP systolic 76–138; BP diastolic 39–97; PULSE 67–107; RESP 12–29; TEMP 35.8–38.8; O2SAT 93–100; BMI 21.6
[2024-08-02] MEDS: Midazolam HCl 2 MG/2 ML VIAL IVPUSH ×2 (00:02)
[2024-08-02] MEDS: vancomycin HCL 1,000 MG in 0.9 % Sodium Chloride 250 ML 270 MG IV (00:11)
[2024-08-02] MEDS: dexmedeTOMIDine HCL/NS 400 MCG/100 ML PLAST..BAG 9.08 MCG IVCONT ×2 (00:26→08:15)
[2024-08-02 00:29] LABS: Ammonia 68 umol/L (13-55)
--- NOTE | 2024-08-02 00:45 | PC.NURSE ---
Delay noted hanging the vanco due to difficulty obtaining IV access. MD at bedside for central line placement. Vanco infusing per MAR.
--- NOTE | 2024-08-02 00:46 | PC.NURSE ---
ICU PA at bedside.
[2024-08-02] MEDS: Lactated Ringers 1,000 ML 999 ML IV (00:49)
[2024-08-02 01:26] LABS: Amphetamine Screen Urine Not Detected (Not Detect); Barbiturates, Urine Not Detected (Not Detect); Benzodiazepines Screen Urine POSITIVE (Not Detect); Buprenorphine Scr Not Detected (Not Detect); Cannabinoid Screen Urine Not Detected (Not Detect); Cocaine Screen Urine POSITIVE (Not Detect); Fentanyl, urine POSITIVE (Not Detect); Methadone Screen, Urine Positive (Not Detect); Opiate Screen Urine POSITIVE (Not Detect); Oxycodone Screen Urine Not Detected (Not Detect); Phencyclidine Screen Urine Not Detected (Not Detect)
[2024-08-02] MEDS: Norepinephrine Bitartrate/D5W 8 MG/250 ML PLAST..BAG 3.4 MG IVCONT (01:33)
[2024-08-02 02:23] LABS: Alanine Aminotransferase 16 U/L (0-31); Albumin Level 3.6 g/dL (3.5-5.0); Alkaline Phosphatase 86 U/L (39-117); Aspartate Amino Transferase 42 U/L (5-31); Bilirubin Direct 0.2 mg/dL (0.0-0.5); Total Protein 7.7 g/dL (6.5-8.0)
--- NOTE | 2024-08-02 02:40 | PM.CCHP ---
History of Present Illness Date of Service: 08/02/24 Attending physician on admission: Sergio Lucas Chief Complaint: AMS The patient is a 33-year-old female with a past medical history of polysubstance abuse, Hep C, tricuspid valve endocarditis, right heart failure, ischemic toes from septic emboli, splenic infarct and hx of loculated? pleural effusion who presented to the emergency department via EMS for evaluation? of altered mental status.? According to EMS, she was found in an alleyway, screaming for help, reporting that she ingested an ?unknown amount of pills?.?? ?On arrival to the emergency department patient? altered and combative,? requiring multiple sedatives.? ? Febrile to 104,? tachycardic to 110s, and tachypneic. Laboratory data was significant for? WBC 11.6,? neutrophils 73.1, 0 sodium 134.? Urine toxicology:? positive for opiates, methadone, fentanyl, benzodiazepines, and cocaine Chest x-ray:? concerning for right lower lobe pneumonia ?ED course: ?Patient received 2.5 L bolus, cefepime 2 g, vancomycin 1 g, droperidol 1.25 mg IM, Versed 5 mg IM,? Versed 2 mg IV push x3, Tylenol 1 g IV, and started on Precedex drip.?? Review of Systems Review of Systems: Yes Unobtainable due to mental status PMFSH Past Medical History Medical History Sepsis Ischemic necrosis of toe Loculated pleural effusion Splenic infarct Septic embolism Right heart failure Infective endocarditis of tricuspid valve Hepatitis C Severe low back pain Pneumonia IV drug user Social History Social History Household Members: Unknown / Unable to assess Housing Other:: pt states stays with sister Unable to assess alcohol history related to: Unable to respond and Refusing to respond Alcohol intake: never Patient Tobacco Use Status: Tobacco use Unknown Use of substances other than those prescribed or required for medical reasons: Unknown Substance Use Type: Crack/Cocaine, Heroin, IV Drugs and Opiates Last Used Substance Other:: PT UNABLE TO RESPOND. SEE UDS IN LABS Currently Displaying Signs/Symptoms of Drug Intoxication Withdrawal: No Yarsanism Healthcare Practices: UNABLE TO ASSESS Advance Directives: No Advance Directives Information Provided: No Do you have a plan to hurt others: No Plan Recently lost weight without trying: Unsure Nutrition Risks: On aspiration precautions Patient : No (SEE LABS) : No Meds Allergies Allergy/AdvReac Type Severity Reaction Status Date / Time quetiapine [From Seroquel] AdvReac Dizziness Verified 08/01/24 22:29 Active Medications: Current Medications Dexmedetomidine HCl (Precedex) 400 mcg in 100 mls @ 0 mls/hr IVCONT .Q0M [facility]; Protocol Last Admin: 08/02/24 00:26 Dose: 1 mcg/kg/hr, 9.08 mls/hr Norepinephrine Bitartrate (Levophed) 8 mg in 250 mls @ 0 mls/hr IVCONT .Q0M [facility]; Protocol Last Titration: 08/02/24 01:44 Dose: 0.09 mcg/kg/min, 6.13 mls/hr Piperacillin Sod/Tazobactam (Sod 4.5 gm/ Sodium Chloride) 100 mls @ 200 mls/hr IV Q6H [facility] Pharmacy Consult (Consult Rx Vancomycin Dosing) 1 each MISCELLANE DAILY PRN PRN Reason: Consult order Home Medications ?Medication ?Instructions ?Recorded ?Confirmed ?Last Taken ?Type methadone 10 mg/mL oral 195 mg PO DAILY 05/12/24 05/12/24 05/11/24 History concentrate (Methadone Intensol) colchicine 0.6 mg tablet 0.6 mg PO BID 08/02/24 08/02/24 Unknown History ferrous sulfate 325 mg (65 mg 325 mg PO DAILY 08/02/24 08/02/24 Unknown History iron) tablet,delayed release metoprolol tartrate 25 mg tablet 12.5 mg PO BID 08/02/24 08/02/24 Unknown History pantoprazole 40 mg tablet,delayed 40 mg PO DAILY@0630 08/02/24 08/02/24 Unknown History release Physical Exam Vital Signs: Vital Signs: Last Vital Signs Temp 98.1 F 08/02/24 01:58 Pulse 84 08/02/24 02:18 Resp 19 08/02/24 02:18 BP 109/69 08/02/24 02:18 Pulse Ox 97 08/02/24 02:18 O2 Del Method Room Air 08/02/24 02:18 O2 Flow Rate 2 08/02/24 01:31 BMI result Body Mass Index 15.1 SEPSIS FOCUS EXAM PERFORMED AT 0100 ?General:? Unkempt, open eyes to verbal command. Sedated ?HEENT:? Head is normocephalic, atraumatic, pupils equal round reactive to light accommodation bilaterally.? Extraocular movements appear intact.? Buccal mucosa is dry, Neck is supple ?Cardiac:+ holosystolic murmur, S1 S2 ?Pulmonary:? Diffuse crackles at bases. ?Abdomen:? ?Abdomen soft, non-distended. Diffuse tenderness, Normal bowel sounds. No pulsatile mass. No hepatosplenomegaly. ?Musculoskeletal:? Moving all 4 extremities upon randomly.? The strength is 5/5 bilaterally and throughout all 4 extremities.? Gait not assessed at this point. ?Neurologic:?No focal deficits noted.Motor strength as above.?? ?Skin:BUE upper extremities, with multiple scabs/ scarred areas. Multiple track hernandez in all extremities. Multiple gangrene toes (Right: third toe, Left: Second, fourth and fifth) Vascular:? 2+ pulses upper and lower extremities distally.? Results Labs 08/02/24 05:11 08/02/24 05:11 Labs: Laboratory Results - last 24 hr 08/01/24 08/01/24 08/01/24 22:44 22:49 22:49 MCV 84.2 MCH 27.7 MCHC 32.9 RDW 17.1 H Plt Count 319 D MPV 9.4 Immature Gran % (Auto) 0.4 Neut % (Auto) 73.1 H Lymph % (Auto) 17.2 L Hanson % (Auto) 8.7 Eos % (Auto) 0.3 Baso % (Auto) 0.3 Lymph # (Auto) 2.0 Hanson # (Auto) 1.0 Eos # (Auto) 0.0 Baso # (Auto) 0.0 Abs Immat Gran (auto) 0.05 H Absolute Neuts (auto) 8.5 H Absolute Nucleated RBC 0.000 Nucleated RBC % (auto) 0.0 PT 17.6 H INR 1.5 H APTT 31.6 VBG pH VBG pCO2 VBG pO2 VBG HCO3 VBG O2 Saturation VBG Base Excess Anion Gap 15 Estim Creat Clear Calc 68.4 Estimated GFR > 60 POC Glucose 116 H Random Glucose 112 Lactic Acid 1.8 Calcium 9.0 D Total Bilirubin 0.7 Direct Bilirubin 0.2 AST 42 H ALT 16 Alkaline Phosphatase 86 Ammonia 68 H Total Protein 7.7 Albumin 3.6 Lipase 7 L Salicylates < 5.0 L Urine Opiates Screen Ur Buprenorphine Scrn Ur Oxycodone Screen Urine Methadone Screen Urine Fentanyl Screen Acetaminophen < 3 Ur Barbiturates Screen Ur Phencyclidine Scrn Ur Amphetamines Screen U Benzodiazepines Scrn Urine Cocaine Screen U Marijuana (THC) Screen Ethyl Alcohol < 10 Cancelled Influenza Type A (PCR) Influenza Type B (PCR) RSV RNA Qual (PCR) SARS-CoV-2 RNA (RT-PCR) 08/01/24 08/01/24 08/02/24 23:05 23:13 01:08 MCV MCH MCHC RDW Plt Count MPV Immature Gran % (Auto) Neut % (Auto) Lymph % (Auto) Hanson % (Auto) Eos % (Auto) Baso % (Auto) Lymph # (Auto) Hanson # (Auto) Eos # (Auto) Baso # (Auto) Abs Immat Gran (auto) Absolute Neuts (auto) Absolute Nucleated RBC Nucleated RBC % (auto) PT INR APTT VBG pH 7.54 H VBG pCO2 30 VBG pO2 86 VBG HCO3 26 VBG O2 Saturation 100.0 VBG Base Excess 4.2 Anion Gap Estim Creat Clear Calc Estimated GFR POC Glucose Random Glucose Lactic Acid Calcium Total Bilirubin Direct Bilirubin AST ALT Alkaline Phosphatase Ammonia Total Protein Albumin Lipase Salicylates Urine Opiates Screen POSITIVE H Ur Buprenorphine Scrn Not Detected Ur Oxycodone Screen Not Detected Urine Methadone Screen Positive H Urine Fentanyl Screen POSITIVE H Acetaminophen Ur Barbiturates Screen Not Detected Ur Phencyclidine Scrn Not Detected Ur Amphetamines Screen Not Detected U Benzodiazepines Scrn POSITIVE H Urine Cocaine Screen POSITIVE H U Marijuana (THC) Screen Not Detected Ethyl Alcohol Influenza Type A (PCR) NEGATIVE Influenza Type B (PCR) NEGATIVE RSV RNA Qual (PCR) NEGATIVE SARS-CoV-2 RNA (RT-PCR) NEGATIVE Assessment and Plan (1) Septic shock: Status: Acute (2) Toxic encephalopathy: Status: Acute (3) Polysubstance abuse: Status: Acute (4) Ischemia of both feet: Status: Acute (5) Infective endocarditis of tricuspid valve: Status: Acute (6) Hypotension: Status: Acute (7) Right heart failure: Status: Acute (8) Ischemic necrosis of toe: Status: Acute Plan ?33-year-old female with? extensive past medical history admitted to ICU for management of? sepsis and toxic encephalopathy? Plan: Neuro: ?Toxic encephalopathy:? this is likely the reason for altered mental status. Patient drug screen positive for opiates, fentanyl, benzodiazepines and cocaine.? On methadone,? Will consult addiction medicine.? Wean down Precedex as tolerated ?? Cardiac:?? ?Septic shock :? Febrile to 104, despite 1.5L bolus patient requiring vassopressor support. She had extensive stay at [facility] (In April as well may to july 18? of 2024) , she was diagnosed? group B strep? bacteremia from tricuspid endocarditis s/p angio vac removal of vegetation? patient was not a surgical candidate for valve replacement, was treated with linezolid was supposed to finish a 6 week course, unsure if she finished.? She also had loculated? pleural effusion that was treated with Unasyn and later Augmentin.? ?Chest x-ray is concerning for right lower lobe pneumonia.? Received cefepime and vancomycin in the emergency department.? We will obtain chest CT.? we will continue broad-spectrum antibiotics.? Patient on Levophed,? will wean off as? tolerated ?Ischemic toes: from septic emboli, ? patient was supposed to follow up with outpatient vascular at [facility],? for toe amputations.? Pulmonary: ?Acute hypoxic respiratory failure: ? chest x-ray concerning right lower lobe pneumonia,? due to? history of loculated pleural effusions will obtain CT.? continue antibiotics wean off oxygenation as tolerated.? Renal ?No acute issues Endo:?? ?No acute issues GI:?? ?No acute issues ID: ?Sepsis:? please see cardiac plan.? Blood cultures are pending.? Heme/Onc:?No acute issues Psych:? polysubstance abuse,? on methadone.? Patient is on Precedex now.? We will resume methadone when? appropriate.? Miscellaneous:? ? no acute issues Prophylaxis: ? subacute heparin ? CODE: ? Full code? Critical care time: X 90 minutes of critical care time?
[2024-08-02 03:07] LABS: HCG Quantitative < 2 mIU/mL
[2024-08-02] MEDS: Piperacillin Sodium/Tazobactam 4.5 GM in 0.9 % Sodium Chloride 100 ML IV ×4 (03:08→20:49)
[2024-08-02 05:27] LABS: VBG Base Excess 6.1 mmol/L; VBG HCO3 31 mmol/L (22-26); VBG pCO2 45 mmHg; VBG pH 7.44 (7.32-7.43); VBG pO2 36 mmHg
[2024-08-02 05:35] LABS: Venous Blood Gas Refer to POC result
[2024-08-02 05:52] LABS: MANUAL DIFF FLAG NO
[2024-08-02 05:57] LABS: Basophils Percent Auto 0.2 % (0-2); Eosinophils Percent Auto 0.4 % (0-4); Hematocrit 34.4 % (37.0-47.0); Hemoglobin 11.1 g/dl (12.0-16.0); Imm Gran Abs Auto 0.05 X10*3/uL (0.00-0.03); Imm Gran Pct Auto 0.5 % (0.0-0.4); Lymphocytes Absolute Auto 3.4 X10*3/uL (1.2-4.9); Mean Corpuscular HGB Conc 32.3 g/dl (31.0-35.0); Mean Corpuscular Hemoglobin 27.5 pg (27.0-33.0); Mean Corpuscular Volume 85.4 fL (80.0-98.0); Mean Platelet Volume 9.3 fL (9.4-12.3); Monocytes Absolute Auto 0.7 X10*3/uL (0.1-1.2); Monocytes Percent Auto 6.7 % (2-11); Neutrophils Absolute Auto 6.4 x10*3/uL (2.0-8.3); Neutrophils Percent Auto 60.2 % (45-73); Platelet Count 283 X10*3/uL (160-400); Red Blood Count 4.03 X10*6/uL (4.20-5.50); Red Cell Distribution Width 17.2 % (11.0-16.0); White Blood Count 10.7 X10*3/uL (4.8-10.8)
--- NOTE | 2024-08-02 06:02 | HO.SKINPHOTO ---
Location: right 3rd toe Location: Left toes 2-5 Location: Left toes 2-5 Location: left forearm Location: Left forearm
--- NOTE | 2024-08-02 06:10 | PC.NURSE ---
Patient was admitted to the ED at approximately 02:20 from the ED. On arrival the pt was on 1.0 mcg/kg/hr of precedex. Does not follow commands or track. GCS/RASS assessments were discussed with covering RET[employer] SE[employer] LE[employer]ER Ravi Moeller and precedex titrated as per MAR and [employer] SE[employer] LE[employer]ER orders. Occasional spontaneous movement to extremities. NSR on tele. Continues on levophed infusing at 0.09mcg/kg/min on arrival to unit. Titrated for map goal >65 per MAR. 04:00 hour patient temp noted to be 96.6 core. A warm blanket was placed and the [employer] SE[employer]LOOR LEADER was notified with no further orders advised. Patient had received scheduled zosyn recently during the 03:00 hour as ordered. Breathing remains even and unlabored without distress on room air with spo2 maintained >95%. Pt remains NPO with aspiration precautions in place. Schaffer catheter present on admission remains patent of adequate amounts of odorless cyu. Q2hr repositioning provided for skin integrity. Pt on repositioning/low air loss bed system. CHG bath and schaffer wipe care provided. Bed alarm on and safety measures in place. Hourly purposeful rounding enacted. Please see admission assessments, tasks, and MAR for full details. ?
[2024-08-02 06:16] LABS: Alanine Aminotransferase 10 U/L (0-31); Anion Gap 11 (12-20); Aspartate Amino Transferase 36 U/L (5-31); Bilirubin Total 1.1 mg/dL (0.0-1.0); Blood Urea Nitrogen 11 mg/dL (9-16); Calcium 8.7 mg/dL (8.4-10.2); Carbon Dioxide 27 mmol/L (22-29); Chloride 108 mmol/L (96-108); Creatinine Clr Calc Pharmacy 98.9; Estimated Glomerular Filt Rate > 60; Glucose Random 124 mg/dL (60-115); Magnesium 1.9 mg/dL (1.6-2.6); Phosphorus 3.2 mg/dL (2.7-4.5); Potassium 3.3 mmol/L (3.3-5.1); Sodium 143 mmol/L (135-145); Total Protein 6.7 g/dL (6.5-8.0)
[2024-08-02 06:25] LABS: Alkaline Phosphatase 79 U/L (39-117)
--- NOTE | 2024-08-02 07:00 | CA_ITS ---
Transthoracic Echocardiogram Patient (Last, First, Middle): Roxann Quinteros, Gender: Female Date of : 1990 Age: 33 Procedure Date: 08/02/2024 Procedure Type: Transthoracic Echocardiogram Location: ICU Height: 154. cm Weight: 51.71 kg BSA: 1.48 m2 Heart Rate: bpm BP: 118 / 74 mmHg Metal Expediter: WENDI Referring MD: Sergio Lucas MD Symptoms: endocarditis Study Quality: Adequate ECG Rhythm: Sinus Conclusions: - Normal left ventricular size, thickness, systolic function, and wall motion. The visually estimated ejection fraction is between 60-65%. - There is a flattened septum in diastole ( D shaped left ventricle) consistent with right ventricular volume overload. - Diastolic function is normal for age. - Severely increased right ventricular cavity size. There is mildly decreased right ventricular systolic function. - The left atrium is normal in size. The right atrium is severely dilated. - There is severe tricuspid valve regurgitation. Moderately elevated right atrial pressure. There is no evidence of pulmonary hypertension. 1.5 x 0.86 cm vegetation, flail segment with severe TR. Findings Left Ventricle Normal left ventricular size, thickness, systolic function, and wall motion. The visually estimated ejection fraction is between 60-65%. There is a flattened septum in diastole ( D shaped left ventricle) consistent with right ventricular volume overload. Diastolic function is normal for age. Right Ventricle Severely increased right ventricular cavity size. There is mildly decreased right ventricular systolic function. Atria The left atrium is normal in size. The right atrium is severely dilated. Aortic Valve Normal aortic valve structure and function. There is no aortic valve stenosis. There is no aortic valve regurgitation. Mitral Valve Normal mitral valve structure and function. There is no mitral valve regurgitation. There is no mitral valve stenosis. Pulmonic Valve The pulmonic valve is likely normal. There is trace pulmonic valve regurgitation. Tricuspid Valve There is severe tricuspid valve regurgitation. Moderately elevated right atrial pressure. There is no evidence of pulmonary hypertension. 1.5 x 0.86 cm vegetation, flail segment with severe TR. Great Vessels All visible segments of the aorta are normal in size. The visualized portions of the pulmonary artery and branches are normal. Venous The inferior vena cava is normal in size and collapses less than 50% with inspiration. Pericardium/Pleural There is no evidence of pericardial effusion. Prior Study Comparison No significant change compared to prior study dated: 05/13/2024. Measurements 2D Linear Measurements IVSd: 0.83 0.6-0.9/0.6-1.0 cm LVIDd: 3.56 3.9-5.3/4.2-5.9 cm LVIDd Index: 2.41 2.4-3.2/2.2-3.1 cm/m2 LVIDs: 2.68 2.0-3.6 cm LVPWd: 1.31 0.7-1.1 cm Ao Root: 3.00 2.1-3.5 cm LA Diam: 3.30 2.7-3.8/3.0-4.0 cm LAIDs Index: 2.23 1.5-2.3 cm/m2 LV Mass: 145.58 67-162/88-224 g LV Mass Index: 98.36 43-95/49-115 g/m2 LVOT Diam: 1.90 3.0+(-)1.3 cm 2D Systolic Function EF 4C: 64.90 >55% Mitral Valve MV Pk E: 0.76 MV PK A: 0.50 MV Decel Time: 155.00 E/A: 1.50 E'Lateral: 13.10 E'Medial: 11.50 E/E' Med: 6.60 E/E' Lat: 5.80 PHT: 45.00 MVA PHT: 4.89 Decel Bonner: 4.92 Aortic Valve AoV Pk Byron: 0.76 AoV Mn Byron: 0.59 AoV VTI: 0.15 AoV Pk Grad: 2.00 Aov Mn Grad: 1.00 RISA Cont.VTI: 3.13 LVOT LVOT Pk Byron: 0.83 LVOT Mn Byron: 0.61 LVOT VTI: 0.16 LVOT Pk Grad: 3.00 LVOT Mn Grad: 2.00 LVOT Diam: 1.90 LVOT Area: 2.84 Diastolic Function MV Pk E: 0.76 MV Pk A: 0.50 E/A: 1.50 E'Medial: 11.50 E/E' Med: 6.60 E' Laterial: 13.10 E/E' Lat: 5.80 Right Ventricle TAPSE (mm): 17.00 TVS' Byron: 15.00 Tricuspid Valve TR Pk Byron: 1.93 TR Pk Grad: 15.00 RA Press: 8.00 RVSP: 23.00 Great Vessels Aorta Ao Root-2D: 3.00 2.0-3.7 cm Ao Asc: 2.70 2.1-3.4 cm Ao Arch: 2.50 Updated in Other Vendor System with Status of Final Julio C Kumar MD electronically signed on 08/03/2024 12:52:28 PM with status of Final
[2024-08-02] MEDS: Potassium Chloride/H20 40 MEQ/100 ML PIGGYBACK 50 MEQ IV ×2 (07:48→22:22)
[2024-08-02] MEDS: Albumin Human 25 % 100 ML IV ×2 (07:50→14:18)
[2024-08-02] MEDS: 0.9 % Sodium Chloride Flush 3 ML SYRINGE IVFLUSH ×3 (07:50→23:43)
--- NOTE | 2024-08-02 08:00 | PHA.PROG ---
Admission Date/Time: August 02, 2024 01:00 Indication: ENDOCARDITIS Weight in k.9 kg Adjusted body weight in K.4 KG [place] body weight in K.8 KG Obesity Dosing Indication % IBW: Serum Creatinine - Last 168 Hours 08/01/24 08/02/24 22:49 05:11 Creatinine 0.67 0.61 Estimated CrCl and GFR - Last 168 Hours 08/01/24 08/02/24 22:49 05:11 Estim Creat Clear Calc 68.4 98.9 Estimated GFR > 60 > 60 Vancomycin Loading Dose: 1000 MG X 1 IN ED Current Vancomycin Dosing Regimen: 750 MG Q8H Vancomycin Monitoring using AUC goal of 400 - 600 range with trough as surrogate marker:PREDICTED AUC 544 Date and Time for next Vancomycin Level to be drawn: 08/02/24 @2100 ( 3 HOURS PRIOR TO 4TH DOSE) Pharmacist Comments on Vancomycin Plan: Vancomycin dosing will take advantage of [employer] as a clinical decision support tool that uses Bayesian modeling to calculate individual patient's pharmacokinetic parameters and forecast the patient's drug concentration time course with the target goal AUC 24 range of 400 - 600 mg/L/hr.
[2024-08-02] MEDS: vancomycin HCL 750 MG in 0.9 % Sodium Chloride 250 ML 265 MG IV ×2 (08:39→16:20)
--- NOTE | 2024-08-02 09:43 | PM.CNCAR ---
History of Present Illness History of Present Illness Date of Service: 08/02/24 Requesting physician: Sergio Lucas Chief complaint: AMS/ Hypotension Narrative: [age] year female with polysubstance abuse in previous tricuspid valve endocarditis for which she had AngioVac done at [facility] and she was started on IV antibiotics. She is presenting with change in mental status and is positive for multiple drugs at this point. She is in the intensive care unit on pressors and Precedex. She was noticed to have episodes of bradycardia and concern for Mobitz type 2 heart block. Reviewing the telemetry there were couple of episodes where P waves were not conducted. Reviewing the heartbeats previous to that she had progressive prolongation of P to P interval and then the dropped beat was seen. Usually this is seen with high vagal tone. He has no persistent bradycardia or block seen. No history is possible from the patient she is quite somnolent. PMFSH Past Medical History Medical History Sepsis Ischemic necrosis of toe Loculated pleural effusion Splenic infarct Septic embolism Right heart failure Infective endocarditis of tricuspid valve Hepatitis C Severe low back pain Pneumonia IV drug user Social History Social History Household Members: Unknown / Unable to assess Housing Other:: pt states stays with sister Unable to assess alcohol history related to: Unable to respond and Refusing to respond Alcohol intake: never Patient Tobacco Use Status: Tobacco use Unknown Use of substances other than those prescribed or required for medical reasons: Unknown Substance Use Type: Crack/Cocaine, Heroin, IV Drugs and Opiates Last Used Substance Other:: PT UNABLE TO RESPOND. SEE UDS IN LABS Currently Displaying Signs/Symptoms of Drug Intoxication Withdrawal: No Jew Healthcare Practices: UNABLE TO ASSESS Advance Directives: No Advance Directives Information Provided: No Do you have a plan to hurt others: No Plan Recently lost weight without trying: Unsure Nutrition Risks: On aspiration precautions Patient : No (SEE LABS) : No Meds Allergies Allergy/AdvReac Type Severity Reaction Status Date / Time quetiapine [From Seroquel] AdvReac Dizziness Verified 08/01/24 22:29 Active Medications: Current Medications Dexmedetomidine HCl (Precedex) 400 mcg in 100 mls @ 0 mls/hr IVCONT .[facility]M [facility]; Protocol Last Admin: 08/02/24 08:15 Dose: 1 mcg/kg/hr, 9.08 mls/hr Norepinephrine Bitartrate (Levophed) 8 mg in 250 mls @ 0 mls/hr IVCONT .Q[facility]M [facility]; Protocol Last Titration: 08/02/24 08:01 Dose: 0.07 mcg/kg/min, 4.76 mls/hr Piperacillin Sod/Tazobactam (Sod 4.5 gm/ Sodium Chloride) 100 mls @ 200 mls/hr IV Q6H [facility] Last Infusion: 08/02/24 08:35 Dose: Infused Albumin Human (Kedbumin 25 %) 100 mls @ 100 mls/hr IV Q6H JONNY Stop: 08/02/24 14:59 Last Infusion: 08/02/24 08:47 Dose: Infused Potassium Chloride (Potassium Chloride/H20) 40 meq in 100 mls @ 50 mls/hr IV ONCE ONE Stop: 08/02/24 09:59 Last Infusion: 08/02/24 09:34 Dose: Infused Vancomycin HCl 750 mg/ Sodium (Chloride) 265 mls @ 265 mls/hr IV Q8H [facility] Last Infusion: 08/02/24 09:37 Dose: Infused Pharmacy Consult (Consult Rx Vancomycin Dosing) 1 each MISCELLANE DAILY PRN PRN Reason: Consult order Sodium Chloride (0.9 % Sodium Chloride Flush 3 Ml Syringe) [facility] Last Admin: 08/02/24 07:50 Dose: 3 ml Home Medications ?Medication ?Instructions ?Recorded ?Confirmed ?Last Taken ?Type methadone 10 mg/mL oral 195 mg PO DAILY 05/12/24 05/12/24 05/11/24 History concentrate (Methadone Intensol) colchicine 0.6 mg tablet 0.6 mg PO BID 08/02/24 08/02/24 Unknown History ferrous sulfate 325 mg (65 mg 325 mg PO DAILY 08/02/24 08/02/24 Unknown History iron) tablet,delayed release metoprolol tartrate 25 mg tablet 12.5 mg PO BID 08/02/24 08/02/24 Unknown History pantoprazole 40 mg tablet,delayed 40 mg PO DAILY@0630 08/02/24 08/02/24 Unknown History release Physical Exam Vital Signs: Vital Signs: Last Vital Signs Temp 97.9 F 08/02/24 09:00 Pulse 71 08/02/24 09:00 Resp 24 H 08/02/24 09:00 BP 116/80 08/02/24 09:00 Pulse Ox 97 08/02/24 09:00 O2 Del Method Room Air 08/02/24 09:00 O2 Flow Rate 2 08/02/24 01:31 BMI result Body Mass Index 21.6 GENERAL APPEARANCE: Somnolent NECK: no carotid bruit, no jugular venous distention. HEART: no murmurs, regular rate and rhythm. LUNGS: clear to auscultation bilaterally. ABDOMEN: soft, nontender. EXTREMITIES: no edema. Gangrenous stroke right foot. PERIPHERAL PULSES: equal. NEUROLOGIC: Somnolent. On Precedex. Objective Labs and Meds 08/02/24 05:11 08/02/24 20:58 Lab results: Laboratory Results - last 24 hr 08/01/24 08/01/24 08/01/24 22:44 22:49 22:49 WBC 11.6 H RBC 3.93 L D Hgb 10.9 L D Hct 33.1 L D MCV 84.2 MCH 27.7 MCHC 32.9 RDW 17.1 H Plt Count 319 D MPV 9.4 Immature Gran % (Auto) 0.4 Neut % (Auto) 73.1 H Lymph % (Auto) 17.2 L [place] % (Auto) 8.7 Eos % (Auto) 0.3 Baso % (Auto) 0.3 Lymph # (Auto) 2.0 [place] # (Auto) 1.0 Eos # (Auto) 0.0 Baso # (Auto) 0.0 Abs Immat Gran (auto) 0.05 H Absolute Neuts (auto) 8.5 H Absolute Nucleated RBC 0.000 Nucleated RBC % (auto) 0.0 PT 17.6 H INR 1.5 H APTT 31.6 VBG pH VBG pCO2 VBG pO2 VBG HCO3 VBG O2 Saturation VBG Base Excess Sodium 134 L Potassium 4.0 Chloride 99 Carbon Dioxide 24 Anion Gap 15 BUN 15 Creatinine 0.67 Estim Creat Clear Calc 68.4 Estimated GFR > 60 POC Glucose 116 H Random Glucose 112 Lactic Acid 1.8 Calcium 9.0 D Phosphorus Magnesium Total Bilirubin 0.7 Direct Bilirubin 0.2 AST 42 H ALT 16 Alkaline Phosphatase 86 Ammonia 68 H Total Creatine Kinase Troponin I High Sens < 2.7 D Total Protein 7.7 Albumin 3.6 Lipase 7 L Beta HCG, Quant < 2 Salicylates < 5.0 L Urine Opiates Screen Ur Buprenorphine Scrn Ur Oxycodone Screen Urine Methadone Screen Urine Fentanyl Screen Acetaminophen < 3 Ur Barbiturates Screen Ur Phencyclidine Scrn Ur Amphetamines Screen U Benzodiazepines Scrn Urine Cocaine Screen U Marijuana (THC) Screen Ethyl Alcohol < 10 Cancelled Influenza Type A (PCR) Influenza Type B (PCR) RSV RNA Qual (PCR) SARS-CoV-2 RNA (RT-PCR) 08/01/24 08/01/24 08/02/24 23:05 23:13 01:08 WBC RBC Hgb Hct MCV MCH MCHC RDW Plt Count MPV Immature Gran % (Auto) Neut % (Auto) Lymph % (Auto) [place] % (Auto) Eos % (Auto) Baso % (Auto) Lymph # (Auto) [place] # (Auto) Eos # (Auto) Baso # (Auto) Abs Immat Gran (auto) Absolute Neuts (auto) Absolute Nucleated RBC Nucleated RBC % (auto) PT INR APTT VBG pH 7.54 H VBG pCO2 30 VBG pO2 86 VBG HCO3 26 VBG O2 Saturation 100.0 VBG Base Excess 4.2 Sodium Potassium Chloride Carbon Dioxide Anion Gap BUN Creatinine Estim Creat Clear Calc Estimated GFR POC Glucose Random Glucose Lactic Acid Calcium Phosphorus Magnesium Total Bilirubin Direct Bilirubin AST ALT Alkaline Phosphatase Ammonia Total Creatine Kinase Troponin I High Sens Total Protein Albumin Lipase Beta HCG, Quant Salicylates Urine Opiates Screen POSITIVE H Ur Buprenorphine Scrn Not Detected Ur Oxycodone Screen Not Detected Urine Methadone Screen Positive H Urine Fentanyl Screen POSITIVE H Acetaminophen Ur Barbiturates Screen Not Detected Ur Phencyclidine Scrn Not Detected Ur Amphetamines Screen Not Detected U Benzodiazepines Scrn POSITIVE H Urine Cocaine Screen POSITIVE H U Marijuana (THC) Screen Not Detected Ethyl Alcohol Influenza Type A (PCR) NEGATIVE Influenza Type B (PCR) NEGATIVE RSV RNA Qual (PCR) NEGATIVE SARS-CoV-2 RNA (RT-PCR) NEGATIVE 08/02/24 08/02/24 05:11 05:24 WBC 10.7 RBC 4.03 L Hgb 11.1 L Hct 34.4 L MCV 85.4 MCH 27.5 MCHC 32.3 RDW 17.2 H Plt Count 283 MPV 9.3 L Immature Gran % (Auto) 0.5 H Neut % (Auto) 60.2 Lymph % (Auto) 32.0 [place] % (Auto) 6.7 Eos % (Auto) 0.4 Baso % (Auto) 0.2 Lymph # (Auto) 3.4 [place] # (Auto) 0.7 Eos # (Auto) 0.0 Baso # (Auto) 0.0 Abs Immat Gran (auto) 0.05 H Absolute Neuts (auto) 6.4 Absolute Nucleated RBC 0.000 Nucleated RBC % (auto) 0.0 PT INR APTT VBG pH 7.44 H VBG pCO2 45 VBG pO2 36 VBG HCO3 31 H VBG O2 Saturation 58.0 VBG Base Excess 6.1 Sodium 143 Potassium 3.3 Chloride 108 Carbon Dioxide 27 Anion Gap 11 L BUN 11 Creatinine 0.61 Estim Creat Clear Calc 98.9 Estimated GFR > 60 POC Glucose Random Glucose 124 H Lactic Acid Calcium 8.7 Phosphorus 3.2 Magnesium 1.9 Total Bilirubin 1.1 H Direct Bilirubin AST 36 H ALT 10 Alkaline Phosphatase 79 Ammonia Total Creatine Kinase 374 H Troponin I High Sens Total Protein 6.7 Albumin 3.0 L Lipase Beta HCG, Quant Salicylates Urine Opiates Screen Ur Buprenorphine Scrn Ur Oxycodone Screen Urine Methadone Screen Urine Fentanyl Screen Acetaminophen Ur Barbiturates Screen Ur Phencyclidine Scrn Ur Amphetamines Screen U Benzodiazepines Scrn Urine Cocaine Screen U Marijuana (THC) Screen Ethyl Alcohol Influenza Type A (PCR) Influenza Type B (PCR) RSV RNA Qual (PCR) SARS-CoV-2 RNA (RT-PCR) Assessment and Plan (1) Polysubstance abuse: Status: Acute (2) Bradycardia: Status: Acute Plan 33 year female with history of tricuspid valve endocarditis which was treated with AngioVac at [facility]. She was supposed to be on IV linezolid but apparently was found with change in mental status. She is positive for multiple drugs. She has been noticed to have transient episode of bradycardia which is likely related to high vagal tone. No consistent heart block noted. Aortic valve endocarditis with root abscess can lead to AV block but usually it is persistent AV block. I think currently we observe her and we will review her echocardiogram. Thank you for allowing me to participate in the care of your patient. Please feel free to contact me if you have any questions. Procedures Date of Service Date of Service: 08/02/24
--- NOTE | 2024-08-02 09:56 | PHA.MEDREC ---
Addendum entered by Edith Morgan RPh 08/02/24 10:03: reviewed by [facility]. Original Note: Pharmacy Consult ? Medication Reconciliation Pharmacy has completed the medication reconciliation. Couldn't speak with patient due to her being sedated. Tried calling contact on file, however just kept ringing. Utilized claims to confirm med list.
--- NOTE | 2024-08-02 10:44 | MHC.CM.PN ---
Addendum entered by Isha Kerns 08/02/24 12:00: Methadone dosing: [facility] 65mg in the am and 130mg in the pm - information given to ICU pt care team Original Note: Pt presented to ICU after being found altered outside: pt lethargic and sedated: unable to give CM history. Information obtained from EMR and providers in ICU: Pt has long hx of substance missuse: was in ICU at [facility] for over a month, d/c'd at the end of June - unknown if pt completed antibiotic course as an outpt. No HCP on file: CM to await pt to become more alert to complete assessment and assist w/d/c planning.
[2024-08-02] MEDS: methADONE HCl 20 MG/2 ML ORAL.CONC 40 MG PO (17:40)
[2024-08-02] MEDS: dexmedeTOMIDine HCL/NS 400 MCG/100 ML PLAST..BAG 10.89 MCG IVCONT (17:48)
--- NOTE | 2024-08-02 18:04 | PC.NURSE ---
Addendum entered by Zoey Hardin RN 08/02/24 18:38: Tmax 100.9- MD aware, no new orders at this time. Original Note: Assumed care at 0700- pt. remains sedated on precedex, titrated per JUN. Patient with +cough/gag/pain response, RASS -2/-3. At approx 1630 pt. opening eyes spontaneously, A&O to self and place. Pt. requesting methadone-[facility] closed, unable to obtain methadone verification. One time dose 40 mg methadone given per JUN. Pt. SR on tele, HR 70s-90s. At approx. 0747 Pt. with non-sustained rhythm change- MD aware, cardiology consulted- see report. Pt. remains on norepinephrine gtt, titrated per JUN. Pt. remains on RA, 02 sats > 95%. Diet order, pt. awake enough to eat dinner, tolerating diet well. Pt. updated by this RN. Plan of care ongoing.
[2024-08-02 21:25] LABS: Vancomycin Trough 20.2 mcg/mL (10.0-20.0)
[2024-08-02 21:27] LABS: Anion Gap 11 (12-20); Blood Urea Nitrogen 8 mg/dL (9-16); Calcium 8.5 mg/dL (8.4-10.2); Carbon Dioxide 24 mmol/L (22-29); Chloride 111 mmol/L (96-108); Creatinine Clr Calc Pharmacy 86.2; Estimated Glomerular Filt Rate > 60; Glucose Random 190 mg/dL (60-115); Magnesium 1.7 mg/dL (1.6-2.6); Phosphorus 2.9 mg/dL (2.7-4.5); Potassium 3.5 mmol/L (3.3-5.1); Sodium 142 mmol/L (135-145)
--- NOTE | 2024-08-02 22:07 | HE.PHANOTE ---
RE: VANCO DOSING Trough came back as 20.2 mg/L. Patient last received 750 mg @1620 on 08/02/24. Dose is decreased to 1000 mg q12h and pushed back 4 hours, to start @0800 08/03/24. Next trough is scheduled for 08/03/24 @1800.
[2024-08-03] VITALS (25 sets, daily range): BP systolic 87–129; BP diastolic 49–89; PULSE 62–93; RESP 13–33; TEMP 36.1–37.2; O2SAT 92–100; BMI 18.1
[2024-08-03] MEDS: Piperacillin Sodium/Tazobactam 4.5 GM in 0.9 % Sodium Chloride 100 ML IV ×2 (02:18→09:01)
[2024-08-03] MEDS: dexmedeTOMIDine HCL/NS 400 MCG/100 ML PLAST..BAG 7.26 MCG IVCONT (03:18)
[2024-08-03 04:52] LABS: VBG HCO3 26 mmol/L (22-26); VBG pCO2 36 mmHg; VBG pH 7.46 (7.32-7.43); VBG pO2 31 mmHg
[2024-08-03 05:18] LABS: MANUAL DIFF FLAG NO
[2024-08-03 05:20] LABS: Basophils Percent Auto 0.2 % (0-2); Eosinophils Absolute Auto 0.1 X10*3/uL (0.0-0.4); Eosinophils Percent Auto 1.3 % (0-4); Hematocrit 32.1 % (37.0-47.0); Hemoglobin 10.3 g/dl (12.0-16.0); Imm Gran Abs Auto 0.02 X10*3/uL (0.00-0.03); Imm Gran Pct Auto 0.3 % (0.0-0.4); Lymphocytes Absolute Auto 2.8 X10*3/uL (1.2-4.9); Lymphocytes Percent Auto 47.4 % (20-40); Mean Corpuscular HGB Conc 32.1 g/dl (31.0-35.0); Mean Corpuscular Volume 87.2 fL (80.0-98.0); Mean Platelet Volume 9.5 fL (9.4-12.3); Monocytes Absolute Auto 0.5 X10*3/uL (0.1-1.2); Monocytes Percent Auto 7.8 % (2-11); Neutrophils Absolute Auto 2.6 x10*3/uL (2.0-8.3); Platelet Count 223 X10*3/uL (160-400); Red Blood Count 3.68 X10*6/uL (4.20-5.50); Red Cell Distribution Width 17.7 % (11.0-16.0)
[2024-08-03 05:48] LABS: Alanine Aminotransferase 12 U/L (0-31); Albumin Level 3.3 g/dL (3.5-5.0); Alkaline Phosphatase 71 U/L (39-117); Anion Gap 11 (12-20); Aspartate Amino Transferase 29 U/L (5-31); Bilirubin Total 0.6 mg/dL (0.0-1.0); Blood Urea Nitrogen 8 mg/dL (9-16); Calcium 8.5 mg/dL (8.4-10.2); Carbon Dioxide 25 mmol/L (22-29); Chloride 111 mmol/L (96-108); Creatinine Clr Calc Pharmacy 76.2; Estimated Glomerular Filt Rate > 60; Glucose Random 143 mg/dL (60-115); Magnesium 1.8 mg/dL (1.6-2.6); Phosphorus 2.9 mg/dL (2.7-4.5); Potassium 3.7 mmol/L (3.3-5.1); Sodium 143 mmol/L (135-145); Total Protein 6.5 g/dL (6.5-8.0)
[2024-08-03 06:05] LABS: Venous Blood Gas Refer to POC result
[2024-08-03] MEDS: Fluconazole in NaCl,Iso-Osm 400 MG/200 ML PIGGYBACK 100 MG IV (06:11)
--- NOTE | 2024-08-03 06:44 | PC.NURSE ---
Assumed care 1899 - pt drowsy, on precedex - titrated per JUN. Levophed titrated per JUN. UO 10-30 ml/hr. CLASSIFIER TENDER Sunni made aware. Tucker removed?@ 0530, due to void?5600.?
--- NOTE | 2024-08-03 08:52 | HE.PHANOTE ---
Re Methadone Pt receives 65mg in the morning and 130mg at bedtime. Last given on 07/31 at bedtime by [facility]. We administered a one time 40mg yesterday
[2024-08-03] MEDS: methADONE HCl 20 MG/2 ML ORAL.CONC 65 MG PO (08:59)
[2024-08-03] MEDS: Albumin Human 25 % 100 ML IV ×2 (09:01→13:09)
[2024-08-03] MEDS: 0.9 % Sodium Chloride Flush 3 ML SYRINGE IVFLUSH ×3 (09:02→19:54)
[2024-08-03] MEDS: vancomycin HCL 1,000 MG in 0.9 % Sodium Chloride 250 ML 270 MG IV (09:18)
--- NOTE | 2024-08-03 11:01 | P.PNCC_ITS ---
Subjective Subjective Date of Service: 08/03/24 Interval History: 33-year-old lady with underlying history of substance abuse, hepatitis-C, prior episodes of endocarditis complicated by loculated pleural effusions, ischemic to necrosis, tricuspid regurgitation, recent admission to [facility] for endocarditis requiring endovascular removal off tricuspid regurgitation, noncompliant with follow-up antibiotics admitted on 08/02/2024 with substance abuse and hypotension initially requiring pressor support. Blood cultures growing Streptococcus and Leslie, now on empiric therapy. No events overnight. Titrated off pressor support. Critical Care Time (minutes): 0 Physical Exam 2 Vital Signs: Vital Signs: Last Vital Signs Temp 98.8 F 08/03/24 08:00 Pulse 72 08/03/24 10:00 Resp 22 H 08/03/24 10:00 BP 95/56 L 08/03/24 10:00 Pulse Ox 97 08/03/24 10:00 O2 Del Method Room Air 08/03/24 10:00 O2 Flow Rate 2 08/02/24 01:31 BMI result Body Mass Index 18.1 Const: General: no acute distress, alert and awake Eyes: Sclerae: sclerae normal EOM: EOMs intact bilaterally Neck: Neck: Yes no lymphadenopathy, Yes trachea midline and Yes supple Resp: Effort & Inspection: normal respiratory effort and no respiratory distress Auscultation: clear to auscultation bilaterally Cardio: Rate: regular rate Rhythm: regular rhythm Heart sounds: no gallops, no murmurs and no rubs GI: Palpation (GI): Soft to palpation and Other GI palpation findings present ( Nontender) Auscultation: normal bowel sounds Extrem: General: Yes no pedal edema, No clubbing and No cyanosis Objective Data Labs 08/03/24 04:48 08/03/24 04:48 Labs: Laboratory Results - last 24 hr 08/02/24 08/03/24 08/03/24 20:58 04:48 04:49 WBC 6.0 RBC 3.68 L Hgb 10.3 L Hct 32.1 L MCV 87.2 MCH 28.0 MCHC 32.1 RDW 17.7 H Plt Count 223 MPV 9.5 Immature Gran % (Auto) 0.3 Neut % (Auto) 43.0 L Lymph % (Auto) 47.4 H [place] % (Auto) 7.8 Eos % (Auto) 1.3 Baso % (Auto) 0.2 Lymph # (Auto) 2.8 [place] # (Auto) 0.5 Eos # (Auto) 0.1 Baso # (Auto) 0.0 Abs Immat Gran (auto) 0.02 Absolute Neuts (auto) 2.6 Absolute Nucleated RBC 0.000 Nucleated RBC % (auto) 0.0 VBG pH 7.46 H VBG pCO2 36 VBG pO2 31 VBG HCO3 26 VBG O2 Saturation 49.0 VBG Base Excess 3.0 Sodium 142 143 Potassium 3.5 3.7 Chloride 111 H 111 H Carbon Dioxide 24 25 Anion Gap 11 L 11 L BUN 8 L 8 L Creatinine 0.70 0.72 Estim Creat Clear Calc 86.2 76.2 Estimated GFR > 60 > 60 Random Glucose 190 H 143 H Calcium 8.5 8.5 Phosphorus 2.9 2.9 Magnesium 1.7 1.8 Total Bilirubin 0.6 AST 29 ALT 12 Alkaline Phosphatase 71 Total Protein 6.5 Albumin 3.3 L Vancomycin Trough 20.2 H Microbiology Microbiology Results: Microbiology 08/02/24 00:31 Blood - Venous Blood Culture - Preliminary Prelim: Yeast Gram Stain only 08/01/24 22:49 Blood - Venous Blood Culture - Final Streptococcus viridans group Progress Note: A&P Assessment and plan (1) Endocarditis: Status: Acute (2) Polysubstance abuse: Status: Acute (3) Hep C w/o coma, chronic: Status: Acute Plan Assessment: 33-year-old lady with underlying polysubstance abuse and essentially to what amounts to be chronic endocarditis secondary to poor compliance with follow-up treatments admitted with substance abuse and shock initially requiring pressor support Plan: Neuro: Toxic encephalopathy resolved. Cardiac: Suspected ongoing endocarditis. Cardiology service care appreciated. 2D echocardiogram is pending. Pulmonary: No acute issues. Renal: No acute issues. Endo: No acute issues. GI: No acute issues. Underlying hep C. ID: Blood cultures growing Streptococcus and Leslie, continue empiric antibiotics and antifungals. Repeat blood cultures are pending. Heme/Onc: No acute issues. Psych: No acute issues. Miscellaneous: No acute issues. Prophylaxis: Heparin Diet: Regular Quality Stroke Does the patient have a stroke diagnosis?: No VTE Prior VTE?: No VTE Risk Level:: Medical - moderate - high VTE Device Contraindication: N/A - Device Ordered VTE Drug Contraindication: N/A - Med Ordered
[2024-08-03] MEDS: Caspofungin Acetate 70 MG in 0.9 % Sodium Chloride 250 ML 250 MG IV (11:58)
[2024-08-03] MEDS: cefTRIAXone sodium 2 GM VIAL IVPUSH (13:09)
--- NOTE | 2024-08-03 13:11 | PM.EVENT ---
Event Note Date of Service: 08/03/24 Event Note: Patient seen/examined and discussed with ICU provider. 33-year-old female with a history of IV drug use, hepatitis C, and a recent admission to [facility] (from May 14 to Jun 11) 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 Her hospitalization was complicated by septic shock requiring vasopressors and angioVAC removal of valvular vegetation. She also developed septic emboli resulting in toe ischemia and bilateral loculated pleural effusions. she declined chest tube placement. Vascular Surgery was involved and recommended outpatient follow-up for potential toe amputation after demarcation. Anticoagulation was not completed due to concerns about anemia and bleeding risk. She received 4 weeks of IV penicillin and was discharged home to complete an additional 2 weeks of antibiotics with PO linezolid, though adherence is unclear. She was admitted a second time to [facility] from Jun 17 to July 01 for empayema and was discharged with home with Augmentin. She re-presented at [facility] with fever and shock, was admitted to the ICU, and again required vasopressors and broad-spectrum antibiotics. Blood cultures have since grown yeast and Streptococcus viridans. Her hemodynamic status has stabilized, and she is being transitioned out of the ICU. Vital stable Plan: Continue IV caspofungin for yeast fungemia Discontinue zosyn and vancomycin Start ceftriaxone 2 g IV daily for Group B Streptococcus bacteremia ID consult Addiction medicine consult; continue methadone Cardiology consulted for transient bradycardia; no intervention needed at this time May need vascular surgery for ischemic toes from septic emboli Time Spent With Patient Time: Total time managing care of this patient today ____ minutes.
--- NOTE | 2024-08-03 13:32 | PC.NURSE ---
Assumed care at 0700- Precedex and Norepinephrine gtt's weaned off per JUN. Methadone dose verified with [facility], administered per JUN. Pt. A&Ox4, SR on tele, HR 70s-90s, MAPs remains >65 off norepinephrine. Unable to obtain peripheral IV access d/t pt. being an extremely difficult stick-TLC remains in place on transfer per MD verbal order. Pt. tolerating regular diet well. Pt. 1 assist to the commode, spontaneously voided at approx. 1030. Medical Telemetry downgrade orderd by saloonkeeper, report given to delia mcmanus RN. Pending transfer via pt. transport.
[2024-08-03] MEDS: methADONE HCl 20 MG/2 ML ORAL.CONC 130 MG PO (19:46)
--- NOTE | 2024-08-04 00:03 | P.CNID_ITS ---
History of Present Illness Data of Consult Service Date: 08/04/24 Requesting physician: Juvencio Jeffery Primary Care Provider: Ariana SOTO Reason for consult: bacteremia,possible endocarditis She presents to hospital feeling ill and tired. She had been to [facility] with septic shock and Group B strep bacteremia.She was given 4 weeks IV Penicillin and then po linezolid and was there 05/14-06/11. She had angiovac rounded vegetation on tricuspid valve, concern over mitral valve as well. She was again hospitalized there 06/17-07/01 with empyema and discharged on Augmentin. Now on 08/02 blood culture shows yeast and 1/2 strep viridans. Review of Systems 2 Review of Systems: Yes all other systems are reviewed and are negative [facility] Past Medical History Medical History Sepsis Ischemic necrosis of toe Loculated pleural effusion Splenic infarct Septic embolism Right heart failure Infective endocarditis of tricuspid valve Hepatitis C Severe low back pain Pneumonia IV drug user Family History Family history: reviewed and not pertinent Social History Social History Household Members: Unknown / Unable to assess Housing Other:: pt states stays with sister Unable to assess alcohol history related to: Unable to respond and Refusing to respond Alcohol intake: never Patient Tobacco Use Status: Tobacco use Unknown Use of substances other than those prescribed or required for medical reasons: Unknown Substance Use Type: Crack/Cocaine, Heroin, IV Drugs and Opiates Last Used Substance Other:: PT UNABLE TO RESPOND. SEE UDS IN LABS Currently Displaying Signs/Symptoms of Drug Intoxication Withdrawal: No Cheondoism Healthcare Practices: UNABLE TO ASSESS Advance Directives: No Advance Directives Information Provided: No Do you have a plan to hurt others: No Plan Recently lost weight without trying: Unsure Nutrition Risks: On aspiration precautions Patient : No (SEE LABS) : No Meds Allergies Allergy/AdvReac Type Severity Reaction Status Date / Time quetiapine [From Seroquel] AdvReac Dizziness Verified 08/01/24 22:29 Active Medications: Current Medications Ceftriaxone Sodium (Ceftriaxone Sodium 2 Gm Vial) 2 gm IVPUSH Q24H [facility] Last Admin: 08/03/24 13:09 Dose: 2 gm Caspofungin 50 mg/ Sodium (Chloride) 250 mls @ 250 mls/hr IV Q24H [facility]ON[facility] Methadone HCl (Methadone Hcl 20 Mg/2 Ml Oral.Conc) 65 mg PO DAILY@0800 [facility] Last Admin: 08/03/24 08:59 Dose: 65 mg Methadone HCl (Methadone Hcl 20 Mg/2 Ml Oral.Conc) 130 mg PO BEDTIME [facility] Last Admin: 08/03/24 19:46 Dose: 130 mg Sodium Chloride (0.9 % Sodium Chloride Flush 3 Ml Syringe) 3 ml IVFLUSH QSHIFT [facility] Last Admin: 08/03/24 19:54 Dose: 3 ml Home Medications ?Medication ?Instructions ?Recorded ?Confirmed ?Last Taken ?Type colchicine 0.6 mg tablet 0.6 mg PO BID 08/02/24 08/02/24 Unknown History ferrous sulfate 325 mg (65 mg 325 mg PO DAILY 08/02/24 08/02/24 Unknown History iron) tablet,delayed release metoprolol tartrate 25 mg tablet 12.5 mg PO BID 08/02/24 08/02/24 Unknown History pantoprazole 40 mg tablet,delayed 40 mg PO DAILY@0630 08/02/24 08/02/24 Unknown History release methadone 10 mg/mL oral 65 mg PO DAILY 08/03/24 08/03/24 07/31/24 History concentrate (Methadone Intensol) methadone 10 mg/mL oral 130 mg PO BEDTIME 08/03/24 08/03/24 07/31/24 History concentrate (Methadone Intensol) Physical Exam 2 Vital Signs: Vital Signs: Last Vital Signs Temp 98 F 08/03/24 23:39 Pulse 75 08/03/24 23:39 Resp 18 08/03/24 23:39 BP 129/89 08/03/24 23:39 Pulse Ox 96 08/03/24 23:39 O2 Del Method Room Air 08/03/24 23:39 O2 Flow Rate 2 08/02/24 01:31 BMI result Body Mass Index 18.1 Const: General: cooperative HEENT: Head: Yes normal to inspection Ears: hearing grossly normal bilaterally General nose exam: Normal external nose present Mouth: Normal oral and palatal mucosa present Resp: Effort & Inspection: normal respiratory effort Cardio: Rate: regular rate GI: Inspection: Yes normal to inspection Skin: General skin exam: no rashes or lesions noted Extrem: Other: right third and left 2nd and 4th toes blackend Psych: Appearance: grossly normal Mental Status: mental status grossly normal Speech and movement: Normal speech and movement present Insight: L imited insight present (Psych) Results Labs 08/03/24 04:48 08/03/24 04:48 Labs: Short CBC 08/03/24 Range/Units 04:48 WBC 6.0 (4.8-10.8) X10*3/uL Hgb 10.3 L (12.0-16.0) g/dl Hct 32.1 L (37.0-47.0) % Plt Count 223 (160-400) X10*3/uL BMP 08/03/24 04:48 Sodium 143 Potassium 3.7 Chloride 111 H Carbon Dioxide 25 BUN 8 L Creatinine 0.72 Calcium 8.5 Liver Function 08/03/24 Range/Units 04:48 Total Bilirubin 0.6 (0.0-1.0) mg/dL AST 29 (5-31) U/L ALT 12 (0-31) U/L Alkaline Phosphatase 71 (39-117) U/L Albumin 3.3 L (3.5-5.0) g/dL Microbiology Microbiology Results: Microbiology 08/02/24 01:08 Urine Catheterized - Tucker Catheter Urine Culture - Final No growth. 08/02/24 00:31 Blood - Venous Blood Culture - Preliminary Prelim: Yeast Gram Stain only 08/01/24 22:49 Blood - Venous Blood Culture - Final Streptococcus viridans group Assessment and Plan (1) Endocarditis: Status: Acute (2) Ischemic necrosis of toe: Status: Acute (3) Right heart failure: Status: Acute Plan Fungal endocardiits concerns Strep viridans may be contaminant Prior episodes of bacteremia Hepatitis C history Needs BENTLEY determine need for Csurg intervention and valve status. Caspofungin and Ctx for now,probably six weeks. Check Hepatitis C viral load.
[2024-08-04 03:45] VITALS: BP 135/93; PULSE 73; RESP 18; TEMP 36.6; O2SAT 95
[2024-08-04 06:00] VITALS: BMI 24.7
[2024-08-04 07:33] LABS: MANUAL DIFF FLAG NO
[2024-08-04 07:44] LABS: Basophils Percent Auto 0.2 % (0-2); Eosinophils Absolute Auto 0.1 X10*3/uL (0.0-0.4); Eosinophils Percent Auto 2.1 % (0-4); Hematocrit 30.6 % (37.0-47.0); Hemoglobin 9.7 g/dl (12.0-16.0); Imm Gran Abs Auto 0.01 X10*3/uL (0.00-0.03); Imm Gran Pct Auto 0.2 % (0.0-0.4); Lymphocytes Absolute Auto 3.4 X10*3/uL (1.2-4.9); Lymphocytes Percent Auto 53.4 % (20-40); Mean Corpuscular HGB Conc 31.7 g/dl (31.0-35.0); Mean Corpuscular Volume 88.4 fL (80.0-98.0); Mean Platelet Volume 9.8 fL (9.4-12.3); Monocytes Absolute Auto 0.4 X10*3/uL (0.1-1.2); Monocytes Percent Auto 6.7 % (2-11); Neutrophils Absolute Auto 2.4 x10*3/uL (2.0-8.3); Neutrophils Percent Auto 37.4 % (45-73); Platelet Count 243 X10*3/uL (160-400); Red Blood Count 3.46 X10*6/uL (4.20-5.50); Red Cell Distribution Width 17.3 % (11.0-16.0); White Blood Count 6.3 X10*3/uL (4.8-10.8)
[2024-08-04 08:00] VITALS: BP 119/80; PULSE 74; RESP 18; TEMP 36.7; O2SAT 96
[2024-08-04 08:01] LABS: Albumin Level 3.4 g/dL (3.5-5.0); Anion Gap 9 (12-20); Blood Urea Nitrogen 5 mg/dL (9-16); Calcium 8.4 mg/dL (8.4-10.2); Carbon Dioxide 26 mmol/L (22-29); Chloride 107 mmol/L (96-108); Estimated Glomerular Filt Rate > 60; Glucose Random 79 mg/dL (60-115); Magnesium 1.6 mg/dL (1.6-2.6); Phosphorus 3.4 mg/dL (2.7-4.5); Potassium 3.4 mmol/L (3.3-5.1); Sodium 139 mmol/L (135-145)
[2024-08-04] MEDS: methADONE HCl 20 MG/2 ML ORAL.CONC 65 MG PO (08:46)
[2024-08-04] MEDS: Caspofungin Acetate 50 MG in 0.9 % Sodium Chloride 250 ML 250 MG IV (10:12)
[2024-08-04] MEDS: 0.9 % Sodium Chloride Flush 3 ML SYRINGE IVFLUSH ×3 (10:12→19:45)
--- NOTE | 2024-08-04 10:42 | P.PNIM_ITS ---
Subjective Subjective Date of Service: 08/04/24 Interval History: f/u on endocarditis, bacteremia, septic shock she has no new complaint, repeat blood cultures 08/04 is positive Physical Exam 2 Vital Signs: Vital Signs: Last Vital Signs Temp 98.0 F 08/04/24 08:00 Pulse 74 08/04/24 08:00 Resp 18 08/04/24 08:00 BP 119/80 08/04/24 08:00 Pulse Ox 96 08/04/24 08:00 O2 Del Method Room Air 08/04/24 08:00 O2 Flow Rate 2 08/02/24 01:31 BMI result Body Mass Index 24.7 Const: Other: General: AO X 3, no acute distress Resp: CTA bilateral CVS: S1,S2,RRR GI: +BS, NT, no distention Skin: see picture from 08/04 note Neuro: motor grossly intact Psych: appropriate affect Objective Data Active Medications Ceftriaxone Sodium (Ceftriaxone Sodium 2 Gm Vial) 2 gm IVPUSH Q24H [facility] Last Admin: 08/03/24 13:09 Dose: 2 gm Documented By: SINA Caspofungin 50 mg/ Sodium (Chloride) 250 mls @ 250 mls/hr IV Q24H [facility] Last Admin: 08/04/24 10:12 Dose: 250 mls/hr Documented By: WENDY Methadone HCl (Methadone Hcl 20 Mg/2 Ml Oral.Conc) 65 mg PO DAILY@0800 [facility] Last Admin: 08/04/24 08:46 Dose: 65 mg Documented By: WENDY Co-signed By: TIMOTHY Methadone HCl (Methadone Hcl 20 Mg/2 Ml Oral.Conc) 130 mg PO BEDTIME [facility] Last Admin: 08/03/24 19:46 Dose: 130 mg Documented By: DANNA Co-signed By: BECCA Sodium Chloride (0.9 % Sodium Chloride Flush 3 Ml Syringe) 3 ml IVFLUSH QSHIFT [facility] Last Admin: 08/04/24 10:12 Dose: 3 ml Documented By: WENDY Labs 08/04/24 06:43 08/04/24 06:43 Labs: Laboratory Results - last 24 hr 08/04/24 06:43 MCV 88.4 MCH 28.0 MCHC 31.7 RDW 17.3 H Plt Count 243 MPV 9.8 Immature Gran % (Auto) 0.2 Neut % (Auto) 37.4 L Lymph % (Auto) 53.4 H [place] % (Auto) 6.7 Eos % (Auto) 2.1 Baso % (Auto) 0.2 Lymph # (Auto) 3.4 [place] # (Auto) 0.4 Eos # (Auto) 0.1 Baso # (Auto) 0.0 Abs Immat Gran (auto) 0.01 Absolute Neuts (auto) 2.4 Absolute Nucleated RBC 0.000 Nucleated RBC % (auto) 0.0 Anion Gap 9 L Estim Creat Clear Calc 112.0 Estimated GFR > 60 Random Glucose 79 Calcium 8.4 Phosphorus 3.4 Magnesium 1.6 Albumin 3.4 L Microbiology Microbiology Results: Microbiology 08/02/24 00:31 Blood Culture - Preliminary Blood - Venous Yeast 08/02/24 01:08 Urine Culture - Final Urine Catheterized - Tucker Catheter No growth. 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 Her hospitalization was complicated by septic shock requiring vasopressors and angioVAC removal of valvular vegetation. She also developed septic emboli resulting in toe ischemia and bilateral loculated pleural effusions. she declined chest tube placement. Vascular Surgery was involved and recommended outpatient follow-up for potential toe amputation after demarcation. Anticoagulation was not completed due to concerns about anemia and bleeding risk. She received 4 weeks of IV penicillin and was discharged home to complete an additional 2 weeks of antibiotics with PO linezolid, though adherence is unclear. She was admitted a second time to [facility] from Jun 17 to July 01 for empayema and was discharged with home with Augmentin. She [place] [facility] [place] fever and [place], was admitted to the ICU, and again required vasopressors and broad-spectrum antibiotics. Blood cultures have since grown yeast and Streptococcus viridans. Her hemodynamic status has stabilized, and she is being transitioned out of the ICU. Plan: * Continue IV caspofungin for yeast fungemia * Discontinued zosyn and vancomycin on 08/03 * Start ceftriaxone 2 g IV daily for Group B Streptococcus bacteremia on 08/03 * ID recommends BENTLEY to decide if needs surgery, will discussed with cardiology * repeat blood cultures 08/04, already positive * Addiction medicine consult; continue methadone * Cardiology consulted for transient bradycardia; no intervention needed at this time * May need vascular surgery for ischemic toes from septic emboli Quality Stroke Does the patient have a stroke diagnosis?: No VTE Prior VTE?: No VTE Risk Level:: Medical - moderate - high VTE Device Contraindication: N/A - Device Ordered VTE Drug Contraindication: N/A - Med Ordered
[2024-08-04 12:00] VITALS: BP 118/90; PULSE 74; RESP 18; TEMP 36.8; O2SAT 98
--- NOTE | 2024-08-04 14:10 | HO.ADDICTCON ---
History of Present Illness Date of Service: 08/04/2024 Chief Complaint: AMS/ Hypotension Reason for Consult: GERRI Sources of Information: patient interviewed and chart reviewed HPI Narrative: Patient is a 33 year old female with history of OUD, endocardiits and gangrene of the toe. She [place] [facility] [place] with toxic encepholopathy, requiring sedation and eventual intubation secondary to level of agitation and combativeness. Patient now stepped down to M/T. Seen in room 458. She is awake, alert, pleasant and engage in interview. She reports long history of substance use with, current treatment for OUD with [facility] for at least 3 years. She reports that since has been on methadone, her fentanyl use has decreased considerably. And since her endocardidits admission in April (for 6+ weeks) she reports using 2 times, due to fear of getting sick again --and states last IVDU was 2 weeks ago. She states that on day she presented to ED, she was with an acquaintance who offered her Klonopin, and she agreed. She used IN and states she almost immediately felt off, and can;t recall anything after that. She reports feeling okay overall, but reporting discomfort in her feet. She appears comfortable overall,and well groomed Home dose of methadone re-established --65mg daily and 130mg HS Reports history of Hepatitis C, which cleared without treatment Denies history of HIV---both labs drawn here Hospitalist notes reviewed--blood cultures +, and possible vascular for necrotic toe Also reviewed history from prolonged admission in April to [facility] for endocardiditis with septic emboli. Then readmitted with empyema. Review of Systems Constitutional: Reports as per HPI and Reports no additional constitutional complaints Diagnostics Vital Signs (24Hr): Vital Signs - 24 hr 08/03/24 15:00 08/03/24 19:32 08/03/24 23:39 Temperature 98.8 F 97.3 F 98 F Pulse Rate 77 80 75 Respiratory Rate 18 16 18 Blood Pressure 112/77 123/85 129/89 Pulse Oximetry 99 98 96 Oxygen Delivery Method Room Air Room Air Room Air 08/04/24 03:45 08/04/24 08:00 08/04/24 12:00 Temperature 97.8 F 98.0 F 98.3 F Pulse Rate 73 74 74 Respiratory Rate 18 18 18 Blood Pressure 135/93 H 119/80 118/90 H Pulse Oximetry 95 96 98 Oxygen Delivery Method Room Air Room Air Room Air BMI result Body Mass Index 24.7 Labs 08/04/24 06:43 08/04/24 06:43 Labs: Laboratory Results - last 48 hr 08/02/24 08/03/24 08/03/24 20:58 04:48 04:49 WBC 6.0 RBC 3.68 L Hgb 10.3 L Hct 32.1 L MCV 87.2 MCH 28.0 MCHC 32.1 RDW 17.7 H Plt Count 223 MPV 9.5 Immature Gran % (Auto) 0.3 Neut % (Auto) 43.0 L Lymph % (Auto) 47.4 H [place] % (Auto) 7.8 Eos % (Auto) 1.3 Baso % (Auto) 0.2 Lymph # (Auto) 2.8 [place] # (Auto) 0.5 Eos # (Auto) 0.1 Baso # (Auto) 0.0 Abs Immat Gran (auto) 0.02 Absolute Neuts (auto) 2.6 Absolute Nucleated RBC 0.000 Nucleated RBC % (auto) 0.0 VBG pH 7.46 H VBG pCO2 36 VBG pO2 31 VBG HCO3 26 VBG O2 Saturation 49.0 VBG Base Excess 3.0 Sodium 142 143 Potassium 3.5 3.7 Chloride 111 H 111 H Carbon Dioxide 24 25 Anion Gap 11 L 11 L BUN 8 L 8 L Creatinine 0.70 0.72 Estim Creat Clear Calc 86.2 76.2 Estimated GFR > 60 > 60 Random Glucose 190 H 143 H Calcium 8.5 8.5 Phosphorus 2.9 2.9 Magnesium 1.7 1.8 Total Bilirubin 0.6 AST 29 ALT 12 Alkaline Phosphatase 71 Total Protein 6.5 Albumin 3.3 L Vancomycin Trough 20.2 H 08/04/24 06:43 WBC 6.3 RBC 3.46 L Hgb 9.7 L Hct 30.6 L MCV 88.4 MCH 28.0 MCHC 31.7 RDW 17.3 H Plt Count 243 MPV 9.8 Immature Gran % (Auto) 0.2 Neut % (Auto) 37.4 L Lymph % (Auto) 53.4 H [place] % (Auto) 6.7 Eos % (Auto) 2.1 Baso % (Auto) 0.2 Lymph # (Auto) 3.4 [place] # (Auto) 0.4 Eos # (Auto) 0.1 Baso # (Auto) 0.0 Abs Immat Gran (auto) 0.01 Absolute Neuts (auto) 2.4 Absolute Nucleated RBC 0.000 Nucleated RBC % (auto) 0.0 VBG pH VBG pCO2 VBG pO2 VBG HCO3 VBG O2 Saturation VBG Base Excess Sodium 139 Potassium 3.4 Chloride 107 Carbon Dioxide 26 Anion Gap 9 L BUN 5 L Creatinine 0.59 Estim Creat Clear Calc 112.0 Estimated GFR > 60 Random Glucose 79 Calcium 8.4 Phosphorus 3.4 Magnesium 1.6 Total Bilirubin AST ALT Alkaline Phosphatase Total Protein Albumin 3.4 L Vancomycin Trough Mental Status Exam Mental Status Exam Patient Appearance: Well Grooomed and Appropriate Level of Consciousness: Awake, Appropriate and Alert Medications Medications Current Medications Ceftriaxone Sodium (Ceftriaxone Sodium 2 Gm Vial) 2 gm IVPUSH Q24H [facility] Last Admin: 08/03/24 13:09 Dose: 2 gm Caspofungin 50 mg/ Sodium (Chloride) 250 mls @ 250 mls/hr IV Q24H [facility] Last Infusion: 08/04/24 11:20 Dose: Infused Methadone HCl (Methadone Hcl 20 Mg/2 Ml Oral.Conc) 65 mg PO DAILY@0800 [facility] Last Admin: 08/04/24 08:46 Dose: 65 mg Methadone HCl (Methadone Hcl 20 Mg/2 Ml Oral.Conc) 130 mg PO BEDTIME [facility] Last Admin: 08/03/24 19:46 Dose: 130 mg Sodium Chloride (0.9 % Sodium Chloride Flush 3 Ml Syringe) 3 ml IVFLUSH QSHIFT [facility] Last Admin: 08/04/24 10:12 Dose: 3 ml Allergies Allergies Allergy/AdvReac Type Severity Reaction Status Date / Time quetiapine [From Seroquel] AdvReac Dizziness Verified 08/01/24 22:29 Assessment & Plan Assessment & Plan (1) Opioid use disorder, severe, dependence: Status: Acute Code(s): F11.20 - Opioid dependence, uncomplicated Assessment and Plan: has already resumed methadone discussion related to ongoing substance use and significant medical history--including current admission with +cultures. voiced desire for [facility] admission--will depend on dispo and overall clinical picture dispo pending --+cultures and possible vascular mud trucker to follow up in AM Total time managing care of this patient today __40__ minutes. [facility] Past Medical History Medical History Sepsis Ischemic necrosis of toe Loculated pleural effusion Splenic infarct Septic embolism Right heart failure Infective endocarditis of tricuspid valve Hepatitis C Severe low back pain Pneumonia IV drug user Family History Family history: reviewed and not pertinent Social History Social History Household Members: Unknown / Unable to assess Housing Other:: pt states stays with sister Unable to assess alcohol history related to: Unable to respond and Refusing to respond Alcohol intake: never Patient Tobacco Use Status: Tobacco use Unknown Use of substances other than those prescribed or required for medical reasons: Unknown Substance Use Type: Crack/Cocaine, Heroin, IV Drugs and Opiates Last Used Substance Other:: PT UNABLE TO RESPOND. SEE UDS IN LABS Currently Displaying Signs/Symptoms of Drug Intoxication Withdrawal: No Sikh Healthcare Practices: UNABLE TO ASSESS Advance Directives: No Advance Directives Information Provided: No Do you have a plan to hurt others: No Plan Recently lost weight without trying: Unsure Nutrition Risks: On aspiration precautions Patient : No (SEE LABS) : No
[2024-08-04] MEDS: cefTRIAXone sodium 2 GM VIAL IVPUSH (15:23)
[2024-08-04 15:51] VITALS: BP 120/89; PULSE 99; RESP 18; TEMP 37.1; O2SAT 98
[2024-08-04] MEDS: methADONE HCl 20 MG/2 ML ORAL.CONC 130 MG PO (19:39)
[2024-08-04 19:53] VITALS: BP 132/81; PULSE 73; RESP 18; TEMP 36.7; O2SAT 97
[2024-08-05] VITALS: BP 121/77; PULSE 77; RESP 16; TEMP 36.6; O2SAT 95
[2024-08-05 03:59] VITALS: BP 127/79; PULSE 74; RESP 16; TEMP 37; O2SAT 95
[2024-08-05 07:20] VITALS: BP 108/76; PULSE 72; RESP 17; TEMP 36.3; O2SAT 96
[2024-08-05] MEDS: methADONE HCl 20 MG/2 ML ORAL.CONC 65 MG PO (07:56)
[2024-08-05] MEDS: 0.9 % Sodium Chloride Flush 3 ML SYRINGE IVFLUSH ×3 (07:57→20:24)
[2024-08-05] MEDS: Caspofungin Acetate 50 MG in 0.9 % Sodium Chloride 250 ML 250 MG IV (08:05)
[2024-08-05 08:13] LABS: HIV AB/AG Nonreactive (Nonreactive); HIV Num 1 0.08 S/CO (0.00-0.99)
--- NOTE | 2024-08-05 09:03 | P.PNIM_ITS ---
Subjective Subjective Date of Service: 08/05/24 Interval History: f/u on endocarditis, bacteremia, septic shock she has no new complaint, repeat blood cultures 08/03, negative at 24 hrs Physical Exam 2 Vital Signs: Vital Signs: Last Vital Signs Temp 97.4 F 08/05/24 07:20 Pulse 72 08/05/24 07:20 Resp 17 08/05/24 07:20 BP 108/76 08/05/24 07:20 Pulse Ox 96 08/05/24 07:20 O2 Del Method Room Air 08/05/24 07:20 O2 Flow Rate 2 08/02/24 01:31 BMI result Body Mass Index 24.7 Const: Other: General: AO X 3, no acute distress Resp: CTA bilateral CVS: S1,S2,RRR GI: +BS, NT, no distention Skin: No rash, some ischemic toes see pic from 08/03 Neuro: motor grossly intact Psych: appropriate affect Objective Data Active Medications Ceftriaxone Sodium (Ceftriaxone Sodium 2 Gm Vial) 2 gm IVPUSH Q24H [facility] Last Admin: 08/04/24 15:23 Dose: 2 gm Documented By: WENDY Caspofungin 50 mg/ Sodium (Chloride) 250 mls @ 250 mls/hr IV Q24H [facility] Last Admin: 08/05/24 08:05 Dose: 250 mls/hr Documented By: WENDY Methadone HCl (Methadone Hcl 20 Mg/2 Ml Oral.Conc) 65 mg PO DAILY@0800 [facility] Last Admin: 08/05/24 07:56 Dose: 65 mg Documented By: WENDY Co-signed By: ALIYAH Methadone HCl (Methadone Hcl 20 Mg/2 Ml Oral.Conc) 130 mg PO BEDTIME [facility] Last Admin: 08/04/24 19:39 Dose: 130 mg Documented By: DANNA Co-signed By: CHRISTINAOIC Comments: Sodium Chloride (0.9 % Sodium Chloride Flush 3 Ml Syringe) 3 ml IVFLUSH QSHIFT [facility] Last Admin: 08/05/24 07:57 Dose: 3 ml Documented By: WENDY Labs 08/04/24 06:43 08/04/24 06:43 Labs: Laboratory Results - last 24 hr 08/04/24 00:44 HIV 1&2 Ab/P24 Ag 4thGn Nonreactive Microbiology Microbiology Results: Microbiology 08/03/24 12:59 Blood Culture - Preliminary Blood - Venous No growth after 24 hours. 08/03/24 11:39 Blood Culture - Preliminary Blood - Venous No growth after 24 hours. 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 Her hospitalization was complicated by septic shock requiring vasopressors and angioVAC removal of valvular vegetation. She also developed septic emboli resulting in toe ischemia and bilateral loculated pleural effusions. she declined chest tube placement. Vascular Surgery was involved and recommended outpatient follow-up for potential toe amputation after demarcation. Anticoagulation was not completed due to concerns about anemia and bleeding risk. She received 4 weeks of IV penicillin and was discharged home to complete an additional 2 weeks of antibiotics with PO linezolid, though adherence is unclear. She was admitted a second time to [facility] from Jun 17 to July 01 for empayema and was discharged with home with Augmentin. She re-presented at [facility] with fever and shock, was admitted to the ICU, and again required vasopressors and broad-spectrum antibiotics. Blood cultures have since grown yeast and Streptococcus viridans. Her hemodynamic status has stabilized, and she is being transitioned out of the ICU. Plan: * Continue IV caspofungin for yeast fungemia * Discontinued zosyn and vancomycin on 08/03 * Start ceftriaxone 2 g IV daily for Group B Streptococcus bacteremia on 08/03 * ID recommends BENTLEY to decide if needs surgery, will discussed with cardiology * repeat blood cultures 08/03, negative at 24 hrs * Addiction medicine consult; continue methadone * Cardiology consulted for transient bradycardia; no intervention needed at this time * May need vascular surgery for ischemic toes from septic emboli Lovenox for dvt prophylaxis Full code Quality Stroke Does the patient have a stroke diagnosis?: No VTE Prior VTE?: No VTE Risk Level:: Medical - moderate - high VTE Device Contraindication: N/A - Device Ordered VTE Drug Contraindication: N/A - Med Ordered
--- NOTE | 2024-08-05 10:38 | PM.PNCARD ---
Subjective Subjective Date of Service: 08/05/24 Principal diagnosis: Bacteremia Interval history: Patient without any fever or chills. Repeat blood cultures are for 24 hours negative. Physical Exam Vital Signs: Last Vital Signs Temp 97.4 F 08/05/24 07:20 Pulse 72 08/05/24 07:20 Resp 17 08/05/24 07:20 BP 108/76 08/05/24 07:20 Pulse Ox 96 08/05/24 07:20 O2 Del Method Room Air 08/05/24 07:20 O2 Flow Rate 2 08/02/24 01:31 BMI result Body Mass Index 24.7 Const Other: General: AO X 3, no acute distress Resp: CTA bilateral CVS: S1,S2,RRR GI: +BS, NT, no distention Skin: No rash, some ischemic toes see pic from 08/03 Neuro: motor grossly intact Psych: appropriate affect Objective Labs and Meds 08/04/24 06:43 08/04/24 06:43 Lab results: Laboratory Results - last 24 hr 08/04/24 00:44 HIV 1&2 Ab/P24 Ag 4thGn Nonreactive Progress Note: A&P Assessment and plan (1) Endocarditis: Status: Acute Assessment and Plan: Patient was tricuspid mass with bacteremia. Continues to use IV drugs. He was severe tricuspid regurgitation due to flail tricuspid leaflet due to prior tricuspid valve endocarditis which has required non surgical evacuation. She was significant right-sided chamber enlargement related to severe TR. Her prognosis poor. Unfortunately she continues to use drugs. Her repeat blood cultures are negative at this point time I antibiotics. I do not think a BENTLEY is going to be of any further clinical value at this point time unless she has recurrent fevers or chills recurrent bacteremia. Management would be medical. She has been seen by surgery in the past and felt to be a poor candidate for surgery due to her continued IV drug abuse history with high rates of failure for tricuspid valve repair. Consider evaluation by detox team. Will sign of the case. Please feel free to contact us if there any recurrent issues Time Spent With Patient Time: Total time managing care of this patient today ____ minutes. Progress Note: Quality Stroke Does the patient have a stroke diagnosis?: No Procedures Date of Service Date of Service: 08/05/24
--- NOTE | 2024-08-05 10:44 | MHC.CM.PN ---
PATIENT IS AWAKE AND IN DISCUSSION WITH RECOVERY SUPPORT RN AT THIS TIME. SHE IS AWARE THAT CM WILL RETURN TO DISCUSS CARE AND DC NEEDS, INCLUDING HCP ASSIGNMENT. CM FOLLOWING
[2024-08-05 11:07] VITALS: BP 134/89; PULSE 78; RESP 17; TEMP 36.2; O2SAT 94
[2024-08-05] MEDS: Enoxaparin Sodium 40 MG/0.4 ML SYRINGE SUBCUT (11:12)
--- NOTE | 2024-08-05 12:01 | P.CONGS_ITS ---
<Statement entered by Bunny Garcia MD - 08/06/24 08:54> I have seen and evaluated the patient and agree with history, findings, assessment and plan documented by Keara Gale PA-c. The patient has trash foot syndrome. In short patient has dry gangrene of the right 3rd toe and left 2nd and 4th toe. This does appear to be embolic in nature. She had been treated at [facility] for what appears to be endocarditis and embolization there of. At the current time she has palpable dorsalis pedis and posterior tibial pulses bilaterally. The gangrene appears to be dry with no evidence of infection. Would continue medical workup. She has established care with [facility] vascular and can follow up with them as an outpatient. Thank you for allowing us to assist in her care. If there are any questions or concerns please do not hesitate to contact us. History of Present Illness Consult details Consult date: 08/05/24 <Keara Gale PA-C - Last Filed: 08/05/24 14:13> Narrative: We were consulted for Roxann for concerns of dry gangrene on her right 3rd as well as left 2nd, 4th, and 5th toes. She presented to the ER on 08/01 after being found combative after ingesting an unknown amount of pills. She has a medical history pertinent for infective endocarditis of the tricuspid valve, pneumonia, IVDU, as well as septic shock and bacteremia. She has had 2 recent stays at [facility], from 05/14-06/11 for infective endocarditis and 06/17-07/01 for empyema. She was admitted for bacteremia. Blood cultures were positive for Strep viridans and yeast and she is on IV Ceftriaxone and Caspofungin. She states that the toes are not painful. She denies any injuries or wounds to the toes. She states she noticed them around April. She states she does smoke 5 cigs/day and is not a diabetic. <Keara Gale PA-C - Last Filed: 08/05/24 14:13> Review of Systems 2 Constitutional: Constitutional: Reports as per HPI and Denies weakness < Keara Gale PA-C - Last Filed: 08/05/24 14:13> ENT: Reports Normal hearing present and Denies dizziness <Keara Gale PA-C - Last Filed: 08/05/24 14:13> Cardiovascular: Cardiovascular: Reports as per HPI, Denies chest pain, Denies chest pain at rest, Denies chest pain with activity, Denies dyspnea and Denies dyspnea on exertion <Keara Gale PA-C Last Filed: 08/05/24 14:13> Respiratory: Respiratory: Reports as per HPI, Denies cough, Denies dyspnea and Denies dyspnea on exertion <SHERINE Oliva Last Filed: 08/05/24 14:13> Gastrointestinal: Gastrointestinal: Reports as per HPI, Denies abdominal pain, Denies nausea and Denies vomiting <SHERINE Oliva Last Filed: 08/05/24 14:13> Musculoskeletal: Musculoskeletal: Denies numbness <SHERINE Oliva Last Filed: 08/05/24 14:13> Integumentary/Breasts: Skin/Breast: Reports as per HPI, Denies erythema and Denies wounds <SHERINE Oliva Last Filed: 08/05/24 14:13> Neurologic: Reports Normal hearing present, Denies dizziness, Denies numbness, Denies Sensory deficit (Neuro) and Denies weakness <SHERINE Oliva Last Filed: 08/05/24 14:13> Psychiatric: Psychiatric: Reports no additional psychiatric complaints < SHERINE Oliva Last Filed: 08/05/24 14:13> Endocrine: Endocrine: Reports no additional endocrine complaints <Keara Gale PA-C Last Filed: 08/05/24 14:13> [facility] Past Medical History Medical History: Medical History Sepsis Ischemic necrosis of toe Loculated pleural effusion Splenic infarct Septic embolism Right heart failure Infective endocarditis of tricuspid valve Hepatitis C Severe low back pain Pneumonia IV drug user <Keara Gale PA-C Last Filed: 08/05/24 14:13> Family History Family history: reviewed and not pertinent <Keara Gale PA-C Last Filed: 08/05/24 14:13> Social History Social History: Social History Household Members: Unknown / Unable to assess Housing Other:: pt states stays with sister Unable to assess alcohol history related to: Unable to respond and Refusing to respond Alcohol intake: never Patient Tobacco Use Status: Tobacco use Unknown Use of substances other than those prescribed or required for medical reasons: Unknown Substance Use Type: Crack/Cocaine, Heroin, IV Drugs and Opiates Last Used Substance Other:: PT UNABLE TO RESPOND. SEE UDS IN LABS Currently Displaying Signs/Symptoms of Drug Intoxication Withdrawal: No Caodaism Healthcare Practices: UNABLE TO ASSESS Advance Directives: No Advance Directives Information Provided: No Do you have a plan to hurt others: No Plan Recently lost weight without trying: Unsure Nutrition Risks: On aspiration precautions Patient : No (SEE LABS) : No service: No <Keara Gale PA-C - Last Filed: 08/05/24 14:13> Meds Allergies/Adverse reactions: Allergies Allergy/AdvReac Type Severity Reaction Status Date / Time quetiapine [From Seroquel] AdvReac Dizziness Verified 08/01/24 22:29 <Keara Gale PA-C - Last Filed: 08/05/24 14:13> Active Medications: Current Medications Ceftriaxone Sodium (Ceftriaxone Sodium 2 Gm Vial) 2 gm IVPUSH Q24H [facility] Last Admin: 08/04/24 15:23 Dose: 2 gm Enoxaparin Sodium (Enoxaparin Sodium 40 Mg/0.4 Ml Syringe) 40 mg SUBCUT Q24H [facility] Last Admin: 08/05/24 11:12 Dose: 40 mg Caspofungin 50 mg/ Sodium (Chloride) 250 mls @ 250 mls/hr IV Q24H [facility] Last Infusion: 08/05/24 09:14 Dose: Infused Methadone HCl (Methadone Hcl 20 Mg/2 Ml Oral.Conc) 65 mg PO DAILY@0800 [facility] Last Admin: 08/05/24 07:56 Dose: 65 mg Methadone HCl (Methadone Hcl 20 Mg/2 Ml Oral.Conc) 130 mg PO BEDTIME [facility] Last Admin: 08/04/24 19:39 Dose: 130 mg Sodium Chloride (0.9 % Sodium Chloride Flush 3 Ml Syringe) 3 ml IVFLUSH QSHIFT [facility] Last Admin: 08/05/24 07:57 Dose: 3 ml <Keara Gale PA-C - Last Filed: 08/05/24 14:13> Home medications: Home Medications ?Medication ?Instructions ?Recorded ?Confirmed ?Last Taken ?Type colchicine 0.6 mg tablet 0.6 mg PO BID 08/02/24 08/02/24 Unknown History ferrous sulfate 325 mg (65 mg 325 mg PO DAILY 08/02/24 08/02/24 Unknown History iron) tablet,delayed release metoprolol tartrate 25 mg tablet 12.5 mg PO BID 08/02/24 08/02/24 Unknown History pantoprazole 40 mg tablet,delayed 40 mg PO DAILY@0630 08/02/24 08/02/24 Unknown History release methadone 10 mg/mL oral 65 mg PO DAILY 08/03/24 08/03/24 07/31/24 History concentrate (Methadone Intensol) methadone 10 mg/mL oral 130 mg PO BEDTIME 08/03/24 08/03/24 07/31/24 History concentrate (Methadone Intensol) <ROSY Oliva Last Filed: 08/05/24 14:13> Physical Exam 2 Vital Signs: Vital Signs: Last Vital Signs Temp 97.2 F 08/05/24 11:07 Pulse 78 08/05/24 11:07 Resp 17 08/05/24 11:07 BP 134/89 08/05/24 11:07 Pulse Ox 94 08/05/24 11:07 O2 Del Method Room Air 08/05/24 11:07 O2 Flow Rate 2 08/02/24 01:31 BMI result Body Mass Index 24.7 <ROSY Oliva Last Filed: 08/05/24 14:13> Const: General: comfortable and no acute distress <ROSY Oliva Last Filed: 08/05/24 14:13> Orientation/consciousness: patient oriented x3 <ROSY Oliva Last Filed: 08/05/24 14:13> HEENT: Ears: hearing grossly normal bilaterally <ROSY Oliva Last Filed: 08/05/24 14:13> Resp: Effort & Inspection: normal respiratory effort and able to speak in complete sentences <ROSY Oliva Last Filed: 08/05/24 14:13> Auscultation: clear to auscultation bilaterally <ROSY Oliva Last Filed: 08/05/24 14:13> Cardio: Rate: regular rate <Keara Gale ROSY - Last Filed: 08/05/24 14:13> Rhythm: regular rhythm <Keara Gale ROSY Rodriguez Last Filed: 08/05/24 14:13> Heart sounds: S1 normal heart sound present and S2 normal heart sound present <Keara Gale ROSY - Last Filed: 08/05/24 14:13> Bruits: no abdominal aortic bruits, no carotid bruits, no femoral bruits and no renal bruits <Keara Gale ROSY - Last Filed: 08/05/24 14:13> GI: Palpation (GI): No Abdominal aortic bruit present <Keara GaleJULIAWilfred - Last Filed: 08/05/24 14:13> Neuro: General: patient oriented x3 <Keara Henryrebekah ROSY Rodriguez Last Filed: 08/05/24 14:13> Cranial nerves: Yes Normal hearing present <Keara Gale ROSY Rodriguez Last Filed: 08/05/24 14:13> Sensory Exam: No Sensory deficit (Neuro) <Keara Gale ROSY - Last Filed: 08/05/24 14:13> Extrem: Other: Right lower extremity: bounding palpable DP and PT pulses. Right 3rd toe dry gangrene noted from the middle phalanx to the tip of the toe. Not painful to palpation Left lower extremity: bounding palpable DP and PT pulses. Left 2nd, 4th, and 5th toes all with dry gangrene from the middle phalanx to the tip of the toe. Not painful to palpation. Left 3rd toenail with slight violaceous coloring, not painful. Both extremities and feet warm to the touch. No peripheral edema noted. <Keara Turner JULIA GaleWilfred Rodriguez Last Filed: 08/05/24 14:13> Results Labs Result diagrams: 08/04/24 06:43 08/04/24 06:43 <Keara Turner JULIA GaleWilfred Rodriguez Last Filed: 08/05/24 14:13> Labs: All other labs normal. <Keara Yue SHERINE GaleLinwood Rodriguez Last Filed: 08/05/24 14:13> Assessment and Plan (1) Embolic disease of toe: Status: Acute <Keara Gale PA-C - Last Filed: 08/05/24 14:13> See my note above <Bunny Garcia MD - Last Filed: 08/06/24 08:52> We were consulted for Roxann for concerns of dry gangrene on both feet, her right 3rd toe as well as the left 2nd, 4th, and 5th toes. She denies any injuries and noticed these first turning colors in April. She states they are not painful to palpation. She does have bounding palpable DP and PT pulses. She is being treated for bacteremia with IV Ceftriaxone and Capsofungin for yeast in blood cultures. We recommend wound care with betadine and leaving open to air, to be done daily. There is no acute vascular surgical intervention at this point. We will continue to monitor. If there are any questions or concerns, please do not hesitate to reach out to us. <Keara Gale PA-C - Last Filed: 08/05/24 14:13> Procedures Date of Service Date of Service: 08/05/24 <Keara Gale PA-C - Last Filed: 08/05/24 14:13> 08/06/24 <Bunny Garcia MD - Last Filed: 08/06/24 08:52>
--- NOTE | 2024-08-05 12:18 | HO.WOUND ---
Wound Consult: Initial 33yr old?[place] [facility] [place] - See progress notes and H&P for detailed history.? Wound consult placed for Bilateral Forearm and Bilateral Toes.? Patient agreeable to assessment and photo documentation.? Patient was seen with Keara DUMONT from Vascular services team. +pp noted to both feet, denies neuropathy - Recommend outpt followup with Vascular surgery. Left Forearm Right Forearm Bilateral Forearm Etiology: ??Ulceration - secondary to injection sites suspect xylazine wounds Wound Bed: various stages - dried wound beds with scabs Drainage / Odor: dried serosang noted Edges: ? irregular Isabel wound: ?intact - firm scar tissue noted - No Induration, Fluctuance or Warmth noted Pain: denies Goals of Treatment: ? Autolytic moist wound healing Bilateral Toes Etiology: Arterial related Toes/ Wounds??Present on Admission Wound Bed: stable dry black eschar Drainage / Odor: None Edges: ? well defined Isabel wound: ?intact No Induration, Fluctuance or Warmth noted Pain: tenderness and pain assessed, +PP, denies neuropathy Goals of Treatment: ? Betadine to keep dry and stable and outpt followup Recommendations: Provide adequate and supplemental nutrition.? When applicable maintain blood glucose levels per Providers order. Bilateral Toes - [place] with Betadine, allow to dry. May cover with dry gauze wrap to protect from environment. Apply Daily. Bilateral Forearms - Cleanse with Ns moist gauze, Allow to dry. Apply skin prep to forearm, cover wound with Hydrocolloid dressing. Change every 3-5 days. Re-consult wound care Nurse for wound deterioration or wound changes.
[2024-08-05] MEDS: cefTRIAXone sodium 2 GM VIAL IVPUSH (12:28)
--- NOTE | 2024-08-05 13:15 | MHC.CM.PN ---
CALL TO [facility]. PATIENT HAS HCP DOCUMENT ON FILE AT FACILITY. MEDICAL RECORDS TO FAX COPY TO CASE MANAGEMENT OFFICE.
--- NOTE | 2024-08-05 13:32 | MHC.CM.PN ---
PATIENT IS AOX4 AND ENGAGES IN CONVERSATION. SHE IS AGREEABLE TO SNF PLACEMENT IF NEEDED FOR LT IV ABX AND IS ALSO AWARE THAT PLACEMENT IS LIKELY TO BE OUT OF LOCAL AREA. NO PCP AT THIS TIME. PATIENT USES [facility] IN [place] FOR HER METHADONE MEDICATION. 65 MG A.M. AND 130 MG AT NIGHT. HCP SCANNED INTO [facility]. REFERRALS PLACED FOR FACILITIES TO FOLLOW.
[2024-08-05 15:25] VITALS: BP 126/77; PULSE 62; RESP 18; TEMP 36.8; O2SAT 96
[2024-08-05 19:54] VITALS: BP 118/81; PULSE 67; RESP 16; TEMP 37.1; O2SAT 96
[2024-08-05] MEDS: methADONE HCl 20 MG/2 ML ORAL.CONC 130 MG PO (20:22)
[2024-08-06] VITALS (7 sets, daily range): BP systolic 107–126; BP diastolic 59–83; PULSE 66–76; RESP 12–20; TEMP 36–36.9; O2SAT 95–96
[2024-08-06] MEDS: Caspofungin Acetate 50 MG in 0.9 % Sodium Chloride 250 ML 250 MG IV (07:44)
[2024-08-06] MEDS: 0.9 % Sodium Chloride Flush 3 ML SYRINGE IVFLUSH ×3 (07:45→20:38)
[2024-08-06] MEDS: methADONE HCl 20 MG/2 ML ORAL.CONC 65 MG PO (07:45)
--- NOTE | 2024-08-06 10:13 | P.PNVS_ITS ---
Subjective Subjective Date of Service: 08/06/24 Interval history: Roxann is doing well this morning. She states she is eating, drinking, and sleeping ok. She has no new concerns today. She denies any pain to her feet/toes unless they are touched. Physical Exam Vital Signs: Vital Signs: Last Vital Signs Temp 97.0 F 08/06/24 07:50 Pulse 73 08/06/24 07:50 Resp 16 08/06/24 07:50 BP 117/79 08/06/24 07:50 Pulse Ox 96 08/06/24 07:50 O2 Del Method Room Air 08/06/24 07:50 O2 Flow Rate 2 08/02/24 01:31 BMI result Body Mass Index 24.7 Const: General: comfortable and no acute distress Orientation/consciousness: patient oriented x3 HEENT: Ears: hearing grossly normal bilaterally Resp: Effort & Inspection: normal respiratory effort and able to speak in complete sentences Auscultation: clear to auscultation bilaterally Cardio: Rate: regular rate Rhythm: regular rhythm Heart sounds: S1 normal heart sound present and S2 normal heart sound present Bruits: no abdominal aortic bruits, no carotid bruits, no femoral bruits and no renal bruits GI: Palpation (GI): No Abdominal aortic bruit present Neuro: General: patient oriented x3 Cranial nerves: Yes CN's II-XII intact bilaterally Extrem: Other: Bilateral feet: dressings not taken down this morning, will be changed later. Progress Note: A&P Assessment and plan (1) Ischemia of both feet: Status: Acute Assessment and Plan: Roxann remains stable from a vascular standpoint. She has been seen by [facility] in the past and we recommend follow up with them outpatient. We would continue with daily painting with Betadine and keeping the area clean and dry. If there are any questions or concerns, please do not hesitate to reach out to us. Time Spent With Patient Time: Total time managing care of this patient today ____ minutes. Procedures Date of Service Date of Service: 08/06/24 Quality Stroke Does the patient have a stroke diagnosis?: No VTE Prior VTE?: No VTE Risk Level:: Medical - moderate - high VTE Device Contraindication: N/A - Device Ordered VTE Drug Contraindication: N/A - Med Ordered
[2024-08-06] MEDS: cefTRIAXone sodium 2 GM VIAL IVPUSH (12:44)
--- NOTE | 2024-08-06 14:19 | HO.PM.IMPN ---
Subjective Subjective Date of Service: 08/06/24 Interval History: f/u bacteremia Review of Systems no new complaint, repeat blood cultures 08/03, negative at 48 hrs Physical Exam Vital Signs: Vital Signs: Last Vital Signs Temp 97.3 F 08/06/24 11:00 Pulse 76 08/06/24 11:00 Resp 18 08/06/24 11:00 BP 112/66 08/06/24 11:00 Pulse Ox 96 08/06/24 11:00 O2 Del Method Room Air 08/06/24 11:00 O2 Flow Rate 2 08/02/24 01:31 BMI result Body Mass Index 24.7 General: AO X 3, no acute distress pulm: air entry fair. cardio: rrr,s1s2 heard. GI: +BS, NT, no distention Skin: No rash, some ischemic toes see pic from 08/03 Neuro: motor grossly intact. Objective Data Active Medications Ceftriaxone Sodium (Ceftriaxone Sodium 2 Gm Vial) 2 gm IVPUSH Q24H [facility] Last Admin: 08/06/24 12:44 Dose: 2 gm Documented By: ALIYAH Enoxaparin Sodium (Enoxaparin Sodium 40 Mg/0.4 Ml Syringe) 40 mg SUBCUT Q24H [facility] Last Admin: 08/06/24 07:45 Dose: Not Given Documented By: WENDY Non-Admin Reason: Patient Refused Caspofungin 50 mg/ Sodium (Chloride) 250 mls @ 250 mls/hr IV Q24H [facility] Last Infusion: 08/06/24 09:02 Dose: Infused Documented By: WENDY Methadone HCl (Methadone Hcl 20 Mg/2 Ml Oral.Conc) 65 mg PO DAILY@0800 [facility] Last Admin: 08/06/24 07:45 Dose: 65 mg Documented By: WENDY Co-signed By: ALIYAH Methadone HCl (Methadone Hcl 20 Mg/2 Ml Oral.Conc) 130 mg PO BEDTIME [facility] Last Admin: 08/05/24 20:22 Dose: 130 mg Documented By: AKHIL Co-signed By: FRANKLYN Sodium Chloride (0.9 % Sodium Chloride Flush 3 Ml Syringe) 3 ml IVFLUSH QSHIFT [facility] Last Admin: 08/06/24 07:45 Dose: 3 ml Documented By: WENDY Labs 08/04/24 06:43 08/04/24 06:43 Microbiology Microbiology Results: Microbiology 08/03/24 12:59 Blood Culture - Preliminary Blood - Venous No growth after 48 hours. 08/02/24 00:31 Blood Culture - Preliminary Blood - Venous Yeast 08/03/24 11:39 Blood Culture - Preliminary Blood - Venous No growth after 48 hours. Assessment and Plan (1) IV drug user: Status: Acute (2) Sepsis: Status: Acute (3) Bacteremia: Status: Acute (4) Septic shock: Status: Acute (5) Ischemic necrosis of toe: Status: Acute Plan day:7 33-year-old female with a history of IV drug use, hepatitis C, and a recent admission to [facility] (from May 14 to Jun 11) 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 Her hospitalization was complicated by septic shock requiring vasopressors and angioVAC removal of valvular vegetation. She also developed septic emboli resulting in toe ischemia and bilateral loculated pleural effusions. she declined chest tube placement. Vascular Surgery was involved and recommended outpatient follow-up for potential toe amputation after demarcation. Anticoagulation was not completed due to concerns about anemia and bleeding risk. She received 4 weeks of IV penicillin and was discharged home to complete an additional 2 weeks of antibiotics with PO linezolid, though adherence is unclear. She was admitted a second time to [facility] from Jun 17 to July 01 for empayema and was discharged with home with Augmentin. She re-presented at [facility] with fever and shock, was admitted to the ICU, and again required vasopressors and broad-spectrum antibiotics. Blood cultures have since grown yeast and Streptococcus viridans. Her hemodynamic status has stabilized, and she is being transitioned out of the ICU. Plan: intial blood culture strep viridans /yeast( identification pendin) on 08/02 repeat blood cultures negative@48hrs on08/03 Continue IV caspofungin for yeast fungemia,off zosyn and vancomycin on 08/03,continue ceftriaxone 2 g IV daily for Group B Streptococcus bacteremia on 08/03 seen by vascular surgery-no acute intervention ,recomended to followup with [facility] outpatient. 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 She was significant right-sided chamber enlargement related to severe TR. Her prognosis poor. Unfortunately she continues to use drugs. Her repeat blood cultures are negative at this point time . cardiology do not think a BENTLEY is going to be of any further clinical value at this point time unless she has recurrent fevers or chills recurrent bacteremia. She has been seen by surgery in the past and felt to be a poor candidate for surgery due to her continued IV drug abuse history with high rates of failure for tricuspid valve repair.Management would be medical. Id follow up for duration of antibiotics. Addiction medicine consult; continue methadone Lovenox for dvt prophylaxis Full code ongoing need : bacteremia /?concern of fungemia (cultures not back yet): on iv antibiotics and antifugals ,id followup,also need placement place first in order for placing picc for oysterman antibiotics . Quality Stroke Does the patient have a stroke diagnosis?: No VTE Prior VTE?: No VTE Risk Level:: Medical - moderate - high VTE Device Contraindication: N/A - Device Ordered VTE Drug Contraindication: N/A - Med Ordered
--- NOTE | 2024-08-06 14:26 | HO.ADDICTPRO ---
Subjective Subjective Date of Service: 08/06/24 Reason For Visit: AMS/ Hypotension Interim History: Patient seen in follow up for OUD Requesting change in methadone dosing. would like increase in daytime dose and decrease in evening dose reporting some restlessness and body aches during the day Sleep overall is okay--some issues last evening, unrelated to methadone/OUD Review of Systems Acute medical concerns: Yes Review of Systems Constitutional: Reports as per HPI and Reports no additional constitutional complaints Mental Status Exam Mental Status Exam Patient Appearance: Well Grooomed and Appropriate Level of Consciousness: Awake and Appropriate Patient Behavior: Appropriate and Cooperative Mood Description: Calm Affect Description: Calm Speech Pattern: Clear Thought Process: Intact Thought Content: positive for Intact Judgement: Good Diagnostics Vital Signs (24Hr): Vital Signs - 24 hr 08/05/24 15:25 08/05/24 19:54 08/06/24 00:00 Temperature 98.3 F 98.8 F 98.0 F Pulse Rate 62 67 72 Respiratory Rate 18 16 16 Blood Pressure 126/77 118/81 126/83 Pulse Oximetry 96 96 96 Oxygen Delivery Method Room Air Room Air Room Air 08/06/24 04:00 08/06/24 07:50 08/06/24 11:00 Temperature 96.8 F 97.0 F 97.3 F Pulse Rate 66 73 76 Respiratory Rate 16 16 18 Blood Pressure 117/80 117/79 112/66 Pulse Oximetry 95 96 96 Oxygen Delivery Method Room Air Room Air Room Air BMI result Body Mass Index 24.7 Labs 08/04/24 06:43 08/04/24 06:43 Labs: Laboratory Results - last 48 hr 08/04/24 00:44 HIV 1&2 Ab/P24 Ag 4thGn Nonreactive Medications Medications Current Medications Ceftriaxone Sodium (Ceftriaxone Sodium 2 Gm Vial) 2 gm IVPUSH Q24H [facility] Last Admin: 08/06/24 12:44 Dose: 2 gm Enoxaparin Sodium (Enoxaparin Sodium 40 Mg/0.4 Ml Syringe) 40 mg SUBCUT Q24H [facility] Last Admin: 08/06/24 07:45 Dose: Not Given Caspofungin 50 mg/ Sodium (Chloride) 250 mls @ 250 mls/hr IV Q24H [facility] Last Infusion: 08/06/24 09:02 Dose: Infused Methadone HCl (Methadone Hcl 20 Mg/2 Ml Oral.Conc) 65 mg PO DAILY@0800 [facility] Last Admin: 08/06/24 07:45 Dose: 65 mg Methadone HCl (Methadone Hcl 20 Mg/2 Ml Oral.Conc) 130 mg PO BEDTIME [facility] Last Admin: 08/05/24 20:22 Dose: 130 mg Sodium Chloride (0.9 % Sodium Chloride Flush 3 Ml Syringe) 3 ml IVFLUSH QSHIFT [facility] Last Admin: 08/06/24 07:45 Dose: 3 ml Allergies Allergies Allergy/AdvReac Type Severity Reaction Status Date / Time quetiapine [From Seroquel] AdvReac Dizziness Verified 08/01/24 22:29 Assessment & Plan Assessment & Plan (1) Opioid use disorder, severe, dependence: Status: Acute Code(s): F11.20 - Opioid dependence, uncomplicated Assessment and Plan: methadone doses will be adjusted to 75mg in AM and 120mg bedtime Total time managing care of this patient today ___15_ minutes.
--- NOTE | 2024-08-06 16:04 | MHC.CM.PN ---
EMR reviewed and per MD rounds, pt is not medically cleared for discharge due to management of bacteremia, cultures still pending, will need PICC line placement for alf IV antibiotics, and awaiting ID final recs. [facility] following, willing to accept pt.
[2024-08-06 19:48] LABS: HCV Log PCR <1.18 NOT DETECTED Log IU/mL (NOT DETECTED); HepC Viral Load <15 NOT DETECTED IU/mL (NOT DETECTED)
[2024-08-06] MEDS: methADONE HCl 20 MG/2 ML ORAL.CONC 120 MG PO (20:35)
[2024-08-07 03:17] VITALS: BP 108/70; PULSE 73; RESP 20; TEMP 36.8; O2SAT 93
[2024-08-07 07:17] VITALS: BP 108/65; PULSE 72; RESP 14; TEMP 36.4; O2SAT 97
[2024-08-07] MEDS: 0.9 % Sodium Chloride Flush 3 ML SYRINGE IVFLUSH ×3 (09:42→22:33)
[2024-08-07] MEDS: Caspofungin Acetate 50 MG in 0.9 % Sodium Chloride 250 ML 250 MG IV (09:42)
[2024-08-07] MEDS: methADONE HCl 20 MG/2 ML ORAL.CONC 75 MG PO (09:42)
--- NOTE | 2024-08-07 10:53 | MHC.CM.PN ---
Per ROUNDS discussion, Patient is not yet medically cleared for dc; the referral to [facility] has been updated(they need final ID plan). CM will continue to follow.
--- NOTE | 2024-08-07 11:07 | MHC.RECOVRN ---
Met with pt in [phone] follow up and provide support. Pt awake, alert, easily engages in conversation, resting in bed. Pt reports an easier time going to sleep and improvement in any W/D sx she was feeling since methadone adjusted Pt presents as comfortable and reports the same. No W/D sx observed by this creative services writer Pt denies other concerns at this time.? T/w available as needed.
[2024-08-07 11:10] VITALS: BP 113/61; PULSE 71; RESP 14; TEMP 36.8; O2SAT 95
[2024-08-07] MEDS: cefTRIAXone sodium 2 GM VIAL IVPUSH (15:05)
[2024-08-07 16:00] VITALS: BP 100/60; PULSE 78; RESP 16; TEMP 36.4; O2SAT 96
--- NOTE | 2024-08-07 16:24 | P.PNIM_ITS ---
Subjective Subjective Date of Service: 08/07/24 Interval History: f/u bacteremia Review of Systems no new complaint, repeat blood cultures 08/03, negative at 48 hrs Physical Exam 2 Vital Signs: Vital Signs: Last Vital Signs Temp 98.2 F 08/07/24 11:10 Pulse 71 08/07/24 11:10 Resp 14 08/07/24 11:10 BP 113/61 08/07/24 11:10 Pulse Ox 95 08/07/24 11:10 O2 Del Method Room Air 08/07/24 11:10 O2 Flow Rate 2 08/02/24 01:31 BMI result Body Mass Index 24.7 General: AO X 3, no acute distress pulm: air entry fair. cardio: rrr,s1s2 heard. GI: +BS, NT, no distention Skin: No rash, some ischemic toes see pic from 08/03 Neuro: motor grossly intact. Objective Data Active Medications Ceftriaxone Sodium (Ceftriaxone Sodium 2 Gm Vial) 2 gm IVPUSH Q24H [facility] Last Admin: 08/07/24 15:05 Dose: 2 gm Documented By: ALIYAH Enoxaparin Sodium (Enoxaparin Sodium 40 Mg/0.4 Ml Syringe) 40 mg SUBCUT Q24H [facility] Last Admin: 08/07/24 09:41 Dose: Not Given Documented By: KENIA Non-Admin Reason: Patient Refused Caspofungin 50 mg/ Sodium (Chloride) 250 mls @ 250 mls/hr IV Q24H [facility] Last Infusion: 08/07/24 10:42 Dose: Infused Documented By: ALIYAH Methadone HCl (Methadone Hcl 20 Mg/2 Ml Oral.Conc) 75 mg PO DAILY@0800 [facility] Last Admin: 08/07/24 09:42 Dose: 75 mg Documented By: KENIA Co-signed By: ALIYAH Methadone HCl (Methadone Hcl 20 Mg/2 Ml Oral.Conc) 120 mg PO BEDTIME [facility] Last Admin: 08/06/24 20:35 Dose: 120 mg Documented By: AKHIL Co-signed By: FRANKLYN Sodium Chloride (0.9 % Sodium Chloride Flush 3 Ml Syringe) 3 ml IVFLUSH QSHIFT [facility] Last Admin: 08/07/24 15:05 Dose: 3 ml Documented By: ALIYAH Labs 08/04/24 06:43 08/04/24 06:43 Labs: Laboratory Results - last 24 hr 08/04/24 00:44 Hep C Viral Load <15 NOT DETECTED Hep C Viral Load Log <1.18 NOT DETECTED Assessment and Plan (1) IV drug user: Status: Inactive (2) Sepsis: Status: Acute (3) Bacteremia: Status: Acute (4) Septic shock: Status: Acute (5) Ischemic necrosis of toe: Status: Acute Plan day:8 33-year-old female with a history of IV drug use, hepatitis C, and a recent admission to [facility] (from May 14 to Jun 11) 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 Her hospitalization was complicated by septic shock requiring vasopressors and angioVAC removal of valvular vegetation. She also developed septic emboli resulting in toe ischemia and bilateral loculated pleural effusions. she declined chest tube placement. Vascular Surgery was involved and recommended outpatient follow-up for potential toe amputation after demarcation. Anticoagulation was not completed due to concerns about anemia and bleeding risk. She received 4 weeks of IV penicillin and was discharged home to complete an additional 2 weeks of antibiotics with PO linezolid, though adherence is unclear. She was admitted a second time to [facility] from Jun 17 to July 01 for empayema and was discharged with home with Augmentin. She re-presented at [facility] with fever and shock, was admitted to the ICU, and again required vasopressors and broad-spectrum antibiotics. Blood cultures have since grown yeast and Streptococcus viridans. Her hemodynamic status has stabilized, and she is being transitioned out of the ICU. Plan: intial blood culture strep viridans /yeast( identification pendin) on 08/02 repeat blood cultures negative@48hrs on08/03 Continue IV caspofungin for yeast fungemia,off zosyn and vancomycin on 08/03,continue ceftriaxone 2 g IV daily for Group B Streptococcus bacteremia on 08/03 seen by vascular surgery-no acute intervention ,recomended to followup with [facility] outpatient. 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 She was significant right-sided chamber enlargement related to severe TR. Her prognosis poor. Unfortunately she continues to use drugs. Her repeat blood cultures are negative at this point time . cardiology do not think a BENTLEY is going to be of any further clinical value at this point time unless she has recurrent fevers or chills recurrent bacteremia. She has been seen by surgery in the past and felt to be a poor candidate for surgery due to her continued IV drug abuse history with high rates of failure for tricuspid valve repair.Management would be medical. Id follow up for duration of antibiotics. 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 Quality Stroke Does the patient have a stroke diagnosis?: No VTE Prior VTE?: No VTE Risk Level:: Medical - moderate - high VTE Device Contraindication: N/A - Device Ordered VTE Drug Contraindication: N/A - Med Ordered
[2024-08-07 19:42] VITALS: BP 113/63; PULSE 76; RESP 16; TEMP 36.2; O2SAT 95
[2024-08-07] MEDS: methADONE HCl 20 MG/2 ML ORAL.CONC 120 MG PO (22:26)
[2024-08-07 23:59] VITALS: BP 100/59; PULSE 78; RESP 16; TEMP 36.3; O2SAT 96
--- NOTE | 2024-08-08 | ECG_ITS ---
Test Reason : qt check Blood Pressure : */* mmHG Vent. Rate : 78 BPM Atrial Rate : 78 BPM P-R Int : 146 ms QRS Dur : 86 ms QT Int : 442 ms P-R-T Axes : 65 59 21 degrees QTcB Int : 503 ms Normal sinus rhythm T wave abnormality, consider inferior ischemia T wave abnormality, consider anterolateral ischemia Abnormal ECG When compared with ECG of 01-Aug-2024 22:55, Non-specific change in ST segment in Anterior leads T wave inversion now evident in Inferior leads T wave inversion now evident in Anterior leads Referred By: Janneth Blanco Electronically Signed By: JANE LEE MD
[2024-08-08 03:53] VITALS: BP 111/61; PULSE 76; RESP 14; TEMP 36.3; O2SAT 96
[2024-08-08 07:35] VITALS: BP 111/64; PULSE 74; RESP 16; TEMP 36.5; O2SAT 95
[2024-08-08] MEDS: 0.9 % Sodium Chloride Flush 3 ML SYRINGE IVFLUSH ×3 (09:05→20:47)
[2024-08-08] MEDS: methADONE HCl 20 MG/2 ML ORAL.CONC 75 MG PO (09:05)
[2024-08-08] MEDS: Caspofungin Acetate 50 MG in 0.9 % Sodium Chloride 250 ML 250 MG IV (10:26)
--- NOTE | 2024-08-08 10:40 | MHC.CM.PN ---
Per MD in ROUNDS, Patient is not yet medically cleared for dc (fungal cultures pending); CM will continue to follow.
[2024-08-08 11:25] VITALS: BP 97/65; PULSE 75; RESP 16; TEMP 36.5; O2SAT 98
[2024-08-08] MEDS: cefTRIAXone sodium 2 GM VIAL IVPUSH (13:05)
--- NOTE | 2024-08-08 14:16 | MHC.RECOVRN ---
Met with pt to check in and provide support. Pt doing well. Reports she does not really notice the change in methadone doses but would like to keep it as is for now. Denies other questions or concerns for t/w.
[2024-08-08 15:22] VITALS: BP 97/58; PULSE 82; RESP 18; TEMP 36.3; O2SAT 96
--- NOTE | 2024-08-08 15:40 | HO.PM.IMPN ---
Subjective Subjective Date of Service: 08/08/24 Interval History: f/u bacteremia Review of Systems Denies new symptoms, fever or chills. Physical Exam Vital Signs: Vital Signs: Last Vital Signs Temp 97.4 F 08/08/24 15:22 Pulse 82 08/08/24 15:22 Resp 18 08/08/24 15:22 BP 97/58 L 08/08/24 15:22 Pulse Ox 96 08/08/24 15:22 O2 Del Method Room Air 08/08/24 15:22 O2 Flow Rate 2 08/02/24 01:31 BMI result Body Mass Index 24.7 General: AO X 3, no acute distress pulm: air entry fair. cardio: rrr,s1s2 heard. GI: +BS, NT, no distention Skin: No rash, some ischemic toes see pic from 08/03 Neuro: motor grossly intact. Objective Data Active Medications Ceftriaxone Sodium (Ceftriaxone Sodium 2 Gm Vial) 2 gm IVPUSH Q24H [facility] Last Admin: 08/08/24 13:05 Dose: 2 gm Documented By: IDALIA Enoxaparin Sodium (Enoxaparin Sodium 40 Mg/0.4 Ml Syringe) 40 mg SUBCUT Q24H [facility] Last Admin: 08/08/24 09:09 Dose: Not Given Documented By: IDALIA Non-Admin Reason: Patient Refused Caspofungin 50 mg/ Sodium (Chloride) 250 mls @ 250 mls/hr IV Q24H [facility] Last Infusion: 08/08/24 12:30 Dose: Infused Documented By: IDALIA Methadone HCl (Methadone Hcl 20 Mg/2 Ml Oral.Conc) 75 mg PO DAILY@0800 [facility] Last Admin: 08/08/24 09:05 Dose: 75 mg Documented By: IDALIA Co-signed By: JL Methadone HCl (Methadone Hcl 20 Mg/2 Ml Oral.Conc) 120 mg PO BEDTIME [facility] Last Admin: 08/07/24 22:26 Dose: 120 mg Documented By: BECCA Co-signed By: ELISHA Sodium Chloride (0.9 % Sodium Chloride Flush 3 Ml Syringe) 3 ml IVFLUSH QSHIFT [facility] Last Admin: 08/08/24 09:05 Dose: 3 ml Documented By: IDALIA Labs 08/04/24 06:43 08/04/24 06:43 Microbiology Microbiology Results: Microbiology 08/03/24 12:59 Blood Culture - Final Blood - Venous No growth after 5 days. 08/02/24 00:31 Blood Culture - Preliminary Blood - Venous Grayson tropicalis 08/03/24 11:39 Blood Culture - Final Blood - Venous No growth after 5 days. 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 Her hospitalization was complicated by septic shock requiring vasopressors and angioVAC removal of valvular vegetation. She also developed septic emboli resulting in toe ischemia and bilateral loculated pleural effusions. she declined chest tube placement. Vascular Surgery was involved and recommended outpatient follow-up for potential toe amputation after demarcation. Anticoagulation was not completed due to concerns about anemia and bleeding risk. She received 4 weeks of IV penicillin and was discharged home to complete an additional 2 weeks of antibiotics with PO linezolid, though adherence is unclear. She was admitted a second time to [facility] from Jun 17 to July 01 for empayema and was discharged with home with Augmentin. She re-presented at [facility] with fever and shock, was admitted to the ICU, and again required vasopressors and broad-spectrum antibiotics. Blood cultures have since grown yeast and Streptococcus viridans. Her hemodynamic status has stabilized, and she is being transitioned out of the ICU. Plan: intial blood culture strep viridans /yeast( grayson tropicalis /senstivities pending) on 08/02 repeat blood cultures negative@48hrs on08/03 Continue IV caspofungin for yeast fungemia,off zosyn and vancomycin on 08/03,continue ceftriaxone 2 g IV daily for Group B Streptococcus bacteremia on 08/03 seen by vascular surgery-no acute intervention ,recomended to followup with [facility] outpatient. 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 She was significant right-sided chamber enlargement related to severe TR. Her prognosis poor. Unfortunately she continues to use drugs. Her repeat blood cultures are negative at this point time . cardiology do not think a BENTLEY is going to be of any further clinical value at this point time unless she has recurrent fevers or chills recurrent bacteremia. She has been seen by surgery in the past and felt to be a poor candidate for surgery due to her continued IV drug abuse history with high rates of failure for tricuspid valve repair.Management would be medical. Id follow up for duration of antibiotics. Addiction medicine consult; continue methadone Lovenox for dvt prophylaxis Quality Stroke Does the patient have a stroke diagnosis?: No VTE Prior VTE?: No VTE Risk Level:: Medical - moderate - high VTE Device Contraindication: N/A - Device Ordered VTE Drug Contraindication: N/A - Med Ordered
[2024-08-08 16:56] LABS: Alanine Aminotransferase 10 U/L (0-31); Albumin Level 4.1 g/dL (3.5-5.0); Alkaline Phosphatase 91 U/L (39-117); Anion Gap 13 (12-20); Aspartate Amino Transferase 21 U/L (5-31); Bilirubin Total 0.2 mg/dL (0.0-1.0); Blood Urea Nitrogen 21 mg/dL (9-16); Calcium 9.7 mg/dL (8.4-10.2); Carbon Dioxide 28 mmol/L (22-29); Chloride 100 mmol/L (96-108); Creatinine Clr Calc Pharmacy 88.1; Estimated Glomerular Filt Rate > 60; Glucose Random 123 mg/dL (60-115); Sodium 137 mmol/L (135-145); Total Protein 8.4 g/dL (6.5-8.0)
[2024-08-08 19:17] VITALS: BP 117/61; PULSE 80; RESP 18; TEMP 36.8; O2SAT 96
[2024-08-08] MEDS: methADONE HCl 20 MG/2 ML ORAL.CONC 120 MG PO (20:45)
[2024-08-08 23:29] VITALS: BP 103/58; PULSE 82; RESP 18; TEMP 36.8; O2SAT 95
--- NOTE | 2024-08-09 | ECG_ITS ---
Test Reason : qt check Blood Pressure : */* mmHG Vent. Rate : 76 BPM Atrial Rate : 76 BPM P-R Int : 162 ms QRS Dur : 84 ms QT Int : 438 ms P-R-T Axes : 71 72 -12 degrees QTcB Int : 492 ms Normal sinus rhythm T wave abnormality, consider anterolateral ischemia Prolonged QT Abnormal ECG When compared with ECG of 08-Aug-2024 16:36, No significant change was found Referred By: Janneth Blanco Electronically Signed By: JANE LEE MD
[2024-08-09 03:34] VITALS: BP 101/59; PULSE 77; RESP 77; TEMP 35.8; O2SAT 96
[2024-08-09 07:54] VITALS: BP 99/68; PULSE 77; RESP 20; TEMP 36.1; O2SAT 99
[2024-08-09] MEDS: Magnesium Sulfate/D5W 1 GM/100 ML PIGGYBACK IV (09:12)
[2024-08-09] MEDS: Magnesium Oxide 400 MG TABLET PO ×2 (09:12→18:24)
[2024-08-09] MEDS: methADONE HCl 20 MG/2 ML ORAL.CONC 75 MG PO (09:12)
[2024-08-09] MEDS: 0.9 % Sodium Chloride Flush 3 ML SYRINGE IVFLUSH ×2 (09:12→16:11)
[2024-08-09 09:47] LABS: Magnesium 1.5 mg/dL (1.6-2.6); Potassium 3.4 mmol/L (3.3-5.1)
--- NOTE | 2024-08-09 10:26 | MHC.CM.PN ---
Per ROUNDS discussion, Patient is not yet medically cleared for dc (needs 1-2 more days of tele monitoring); SNF for LT IV ABT is the goal and CM will continue to follow.
[2024-08-09] MEDS: Caspofungin Acetate 50 MG in 0.9 % Sodium Chloride 250 ML 250 MG IV (10:35)
[2024-08-09 11:11] VITALS: BP 95/58; PULSE 77; RESP 18; TEMP 36.4; O2SAT 97
[2024-08-09] MEDS: Magnesium Sulfate/H2O 2 GM/50 ML PIGGYBACK IV (12:28)
[2024-08-09] MEDS: Potassium Chloride ER 20 MEQ TAB.ER.PRT 40 MEQ PO (12:28)
[2024-08-09 15:43] VITALS: BP 100/58; PULSE 72; RESP 15; TEMP 36.2; O2SAT 98
[2024-08-09] MEDS: cefTRIAXone sodium 2 GM VIAL IVPUSH (16:10)
--- NOTE | 2024-08-09 18:31 | P.PNIM_ITS ---
Subjective Subjective Date of Service: 08/09/24 Interval History: f/u bacteremia Review of Systems Denies new complaint of chest pain or shortness of breath or abdominal pain. Review of Systems: Yes all other systems are reviewed and are negative Physical Exam 2 Vital Signs: Vital Signs: Last Vital Signs Temp 97.2 F 08/09/24 15:43 Pulse 72 08/09/24 15:43 Resp 15 08/09/24 15:43 BP 100/58 L 08/09/24 15:43 Pulse Ox 98 08/09/24 15:43 O2 Del Method Room Air 08/09/24 15:43 O2 Flow Rate 2 08/02/24 01:31 BMI result Body Mass Index 24.7 General: AO X 3, no acute distress pulm: air entry fair. cardio: rrr,s1s2 heard. GI: +BS, NT, no distention Skin: No rash, some ischemic toes see pic from 08/03 Neuro: motor grossly intact. Objective Data Active Medications Ceftriaxone Sodium (Ceftriaxone Sodium 2 Gm Vial) 2 gm IVPUSH Q24H [facility] Last Admin: 08/09/24 16:10 Dose: 2 gm Documented By: TAMY Enoxaparin Sodium (Enoxaparin Sodium 40 Mg/0.4 Ml Syringe) 40 mg SUBCUT Q24H [facility] Last Admin: 08/09/24 09:07 Dose: Not Given Documented By: TAMY Non-Admin Reason: Patient Refused Fluconazole (Fluconazole 100 Mg Tablet) 200 mg PO BID [facility] Magnesium Oxide (Magnesium Oxide 400 Mg Tablet) 400 mg PO BIDPC [facility] Last Admin: 08/09/24 18:24 Dose: 400 mg Documented By: TAMY Methadone HCl (Methadone Hcl 20 Mg/2 Ml Oral.Conc) 75 mg PO DAILY@0800 [facility] Last Admin: 08/09/24 09:12 Dose: 75 mg Documented By: TAMY Co-signed By: DAY Methadone HCl (Methadone Hcl 20 Mg/2 Ml Oral.Conc) 120 mg PO BEDTIME [facility] Last Admin: 08/08/24 20:45 Dose: 120 mg Documented By: JACKELYN Co-signed By: JESSICA Sodium Chloride (0.9 % Sodium Chloride Flush 3 Ml Syringe) 3 ml IVFLUSH QSHIFT [facility] Last Admin: 08/09/24 16:11 Dose: 3 ml Documented By: TAMY Labs 08/04/24 06:43 08/09/24 08:52 Labs: Laboratory Results - last 24 hr 08/09/24 08:52 Magnesium 1.5 L Microbiology Microbiology Results: Microbiology 08/02/24 00:31 Blood Culture - Preliminary Blood - Venous Leslie tropicalis 08/03/24 12:59 Blood Culture - Final Blood - Venous No growth after 5 days. 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 Her hospitalization was complicated by septic shock requiring vasopressors and angioVAC removal of valvular vegetation. She also developed septic emboli resulting in toe ischemia and bilateral loculated pleural effusions. she declined chest tube placement. Vascular Surgery was involved and recommended outpatient follow-up for potential toe amputation after demarcation. Anticoagulation was not completed due to concerns about anemia and bleeding risk. She received 4 weeks of IV penicillin and was discharged home to complete an additional 2 weeks of antibiotics with PO linezolid, though adherence is unclear. She was admitted a second time to [facility] from Jun 17 to July 01 for empayema and was discharged with home with Augmentin. She re[place]presented at [facility] [place] and [place], was admitted to the ICU, and again required vasopressors and broad-spectrum antibiotics. Blood cultures have since grown yeast and Streptococcus viridans. Her hemodynamic status has stabilized, and she is being transitioned out of the ICU. Plan: intial blood culture strep viridans /yeast( identification pendin) on 08/02 repeat blood cultures negative@48hrs on08/03 off IV caspofungin 08/09,off zosyn and vancomycin on 08/03,continue ceftriaxone 2 g IV daily for Group B Streptococcus bacteremia on 08/03. Mild hypomagnesemia: repleted iv and po moniter. EKG QTC improving somewhat. Start patient on fluconazole-200 mg bid since patient is methadone ( combinationconcern can increase qtc /concentration of methadone).also addiction will review methadone dose adjustment.moniter on tele. seen by vascular surgery-no acute intervention ,recomended to followup with [facility] outpatient. 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 She was significant right-sided chamber enlargement related to severe TR. Her prognosis poor. Unfortunately she continues to use drugs. Her repeat blood cultures are negative at this point time . cardiology do not think a BENTLEY is going to be of any further clinical value at this point time unless she has recurrent fevers or chills recurrent bacteremia. She has been seen by surgery in the past and felt to be a poor candidate for surgery due to her continued IV drug abuse history with high rates of failure for tricuspid valve repair.Management would be medical. Id follow up for duration of antibiotics. Addiction medicine consult; continue methadone Lovenox for dvt prophylaxis Full code ongoing need : bacteremia /?concern of fungemia (cultures not back yet): on iv antibiotics and antifugals ,id followup,also need placement place first in order for placing picc for group home antibiotics . Quality Stroke Does the patient have a stroke diagnosis?: No VTE Prior VTE?: No VTE Risk Level:: Medical - moderate - high VTE Device Contraindication: N/A - Device Ordered VTE Drug Contraindication: N/A - Med Ordered
[2024-08-09 19:51] VITALS: BP 112/58; PULSE 82; RESP 14; TEMP 36.2; O2SAT 97
[2024-08-09] MEDS: methADONE HCl 20 MG/2 ML ORAL.CONC 120 MG PO (21:16)
[2024-08-09] MEDS: Fluconazole 100 MG TABLET 200 MG PO (21:19)
[2024-08-09 23:52] VITALS: BP 110/67; PULSE 79; RESP 14; TEMP 36.3; O2SAT 97
[2024-08-10] MEDS: 0.9 % Sodium Chloride Flush 3 ML SYRINGE IVFLUSH ×3 (01:49→20:16)
[2024-08-10 03:27] VITALS: BP 105/59; PULSE 79; RESP 14; TEMP 35.9; O2SAT 97
[2024-08-10 06:59] LABS: Anion Gap 12 (12-20); Blood Urea Nitrogen 18 mg/dL (9-16); Calcium 9.6 mg/dL (8.4-10.2); Carbon Dioxide 28 mmol/L (22-29); Chloride 102 mmol/L (96-108); Creatinine Clr Calc Pharmacy 101.7; Estimated Glomerular Filt Rate > 60; Glucose Random 82 mg/dL (60-115); Potassium 4.2 mmol/L (3.3-5.1); Sodium 138 mmol/L (135-145)
[2024-08-10 08:00] VITALS: BP 106/65; PULSE 77; RESP 16; TEMP 36.1; O2SAT 96
[2024-08-10] MEDS: methADONE HCl 20 MG/2 ML ORAL.CONC 75 MG PO (08:46)
[2024-08-10] MEDS: Magnesium Oxide 400 MG TABLET PO ×2 (08:46→18:35)
[2024-08-10] MEDS: Fluconazole 100 MG TABLET 200 MG PO ×2 (08:47→20:12)
[2024-08-10 11:46] VITALS: BP 108/67; PULSE 63; RESP 16; TEMP 36; O2SAT 98
--- NOTE | 2024-08-10 12:51 | HO.PM.IMPN ---
Subjective Subjective Date of Service: 08/10/24 Interval History: f/u bacteremia Review of Systems no new c/o. no fevers Review of Systems: Yes all other systems are reviewed and are negative Physical Exam Vital Signs: Vital Signs: Last Vital Signs Temp 96.8 F 08/10/24 11:46 Pulse 63 08/10/24 11:46 Resp 16 08/10/24 11:46 BP 108/67 08/10/24 11:46 Pulse Ox 98 08/10/24 11:46 O2 Del Method Room Air 08/10/24 11:46 O2 Flow Rate 2 08/02/24 01:31 BMI result Body Mass Index 24.7 General: AO X 3, no acute distress pulm: air entry fair. cardio: rrr,s1s2 heard. GI: +BS, NT, no distention Skin: No rash, some ischemic toes see pic from 08/03 Neuro: motor grossly intact. Objective Data Active Medications Ceftriaxone Sodium (Ceftriaxone Sodium 2 Gm Vial) 2 gm IVPUSH Q24H [facility] Last Admin: 08/09/24 16:10 Dose: 2 gm Documented By: TAMY Enoxaparin Sodium (Enoxaparin Sodium 40 Mg/0.4 Ml Syringe) 40 mg SUBCUT Q24H [facility] Last Admin: 08/10/24 08:48 Dose: Not Given Documented By: TAMY Non-Admin Reason: Patient Refused Fluconazole (Fluconazole 100 Mg Tablet) 200 mg PO BID [facility] Last Admin: 08/10/24 08:47 Dose: 200 mg Documented By: TAMY Magnesium Oxide (Magnesium Oxide 400 Mg Tablet) 400 mg PO BIDPC [facility] Last Admin: 08/10/24 08:46 Dose: 400 mg Documented By: TAMY Methadone HCl (Methadone Hcl 20 Mg/2 Ml Oral.Conc) 75 mg PO DAILY@0800 [facility] Last Admin: 08/10/24 08:46 Dose: 75 mg Documented By: TAMY Co-signed By: POLI Methadone HCl (Methadone Hcl 20 Mg/2 Ml Oral.Conc) 120 mg PO BEDTIME [facility] Last Admin: 08/09/24 21:16 Dose: 120 mg Documented By: MCTR Co-signed By: FAZAL Sodium Chloride (0.9 % Sodium Chloride Flush 3 Ml Syringe) 3 ml IVFLUSH QSHIFT [facility] Last Admin: 08/10/24 08:49 Dose: 3 ml Documented By: TAMY Labs 08/04/24 06:43 08/10/24 06:31 Labs: Laboratory Results - last 24 hr 08/10/24 06:31 Hold Purple Top SEE NOTE Anion Gap 12 Estim Creat Clear Calc 101.7 Estimated GFR > 60 Random Glucose 82 Calcium 9.6 Magnesium 2.0 Microbiology Microbiology Results: Microbiology 08/02/24 00:31 Blood Culture - Preliminary Blood - Venous Leslie tropicalis Assessment and Plan (1) Bradycardia: Status: Acute (2) Hypomagnesemia: Status: Acute Plan day:9 33-year-old female with a history of IV drug use, hepatitis C, and a recent admission to [facility] (from May 14 to Jun 11) 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 Her hospitalization was complicated by septic shock requiring vasopressors and angioVAC removal of valvular vegetation. She also developed septic emboli resulting in toe ischemia and bilateral loculated pleural effusions. she declined chest tube placement. Vascular Surgery was involved and recommended outpatient follow-up for potential toe amputation after demarcation. Anticoagulation was not completed due to concerns about anemia and bleeding risk. She received 4 weeks of IV penicillin and was discharged home to complete an additional 2 weeks of antibiotics with PO linezolid, though adherence is unclear. She was admitted a second time to [facility] from Jun 17 to July 01 for empayema and was discharged with home with Augmentin. She re-presented at [facility] with fever and shock, was admitted to the ICU, and again required vasopressors and broad-spectrum antibiotics. Blood cultures have since grown yeast and Streptococcus viridans. Her hemodynamic status has stabilized, and she is being transitioned out of the ICU. Plan: intial blood culture strep viridans /yeast( identification pendin) on 08/02 repeat blood cultures negative@48hrs on08/03 off IV caspofungin 08/09,off zosyn and vancomycin on 08/03,continue ceftriaxone 2 g IV daily for Group B Streptococcus bacteremia on 08/03. Mild hypomagnesemia: repleted iv and po moniter. EKG QTC improving Start patient on fluconazole-200 mg bid since patient is methadone ( combinationconcern can increase qtc /concentration of methadone).also addiction will review methadone dose adjustment.moniter on tele. seen by vascular surgery-no acute intervention ,recomended to followup with [facility] outpatient. 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 She was significant right-sided chamber enlargement related to severe TR. Her prognosis poor. Unfortunately she continues to use drugs. Her repeat blood cultures are negative at this point time . cardiology do not think a BENTLEY is going to be of any further clinical value at this point time unless she has recurrent fevers or chills recurrent bacteremia. She has been seen by surgery in the past and felt to be a poor candidate for surgery due to her continued IV drug abuse history with high rates of failure for tricuspid valve repair.Management would be medical. Id follow up for duration of antibiotics. Addiction medicine consult; continue methadone Lovenox for dvt prophylaxis Full code ongoing need : awaiting placement,also need placement place first in order for placing picc for [facility] antibiotics once have place available for placement . Quality Stroke Does the patient have a stroke diagnosis?: No VTE Prior VTE?: No VTE Risk Level:: Medical - moderate - high VTE Device Contraindication: N/A - Device Ordered VTE Drug Contraindication: N/A - Med Ordered
[2024-08-10] MEDS: cefTRIAXone sodium 2 GM VIAL IVPUSH (13:41)
[2024-08-10 15:47] VITALS: BP 111/62; PULSE 73; RESP 20; TEMP 36.1; O2SAT 98
[2024-08-10 19:37] VITALS: BP 102/66; PULSE 75; RESP 16; TEMP 36; O2SAT 97
[2024-08-10] MEDS: methADONE HCl 20 MG/2 ML ORAL.CONC 120 MG PO (20:13)
[2024-08-11] VITALS (7 sets, daily range): BP systolic 99–115; BP diastolic 62–75; PULSE 55–78; RESP 16–18; TEMP 36–36.4; O2SAT 98
[2024-08-11] MEDS: Fluconazole 100 MG TABLET 200 MG PO ×2 (07:46→21:17)
[2024-08-11] MEDS: Magnesium Oxide 400 MG TABLET PO ×2 (07:46→16:23)
[2024-08-11] MEDS: methADONE HCl 20 MG/2 ML ORAL.CONC 75 MG PO (07:46)
[2024-08-11] MEDS: 0.9 % Sodium Chloride Flush 3 ML SYRINGE IVFLUSH ×2 (07:48→16:23)
[2024-08-11] MEDS: cefTRIAXone sodium 2 GM VIAL IVPUSH (11:37)
--- NOTE | 2024-08-11 12:27 | HO.PM.IMPN ---
Subjective Subjective Date of Service: 08/11/24 Interval History: f/u bacteremia Review of Systems no new c/o Review of Systems: Yes all other systems are reviewed and are negative Physical Exam Vital Signs: Vital Signs: Last Vital Signs Temp 97 F 08/11/24 11:24 Pulse 74 08/11/24 11:24 Resp 16 08/11/24 11:24 BP 99/66 08/11/24 11:24 Pulse Ox 98 08/11/24 11:24 O2 Del Method Room Air 08/11/24 11:24 O2 Flow Rate 2 08/02/24 01:31 BMI result Body Mass Index 24.7 General: AO X 3, no acute distress pulm: air entry fair. cardio: rrr,s1s2 heard. GI: +BS, NT, no distention Skin: No rash, some ischemic toes see pic from 08/03 Neuro: motor grossly intact. Objective Data Active Medications Ceftriaxone Sodium (Ceftriaxone Sodium 2 Gm Vial) 2 gm IVPUSH Q24H [facility] Last Admin: 08/11/24 11:37 Dose: 2 gm Documented By: DAY Enoxaparin Sodium (Enoxaparin Sodium 40 Mg/0.4 Ml Syringe) 40 mg SUBCUT Q24H [facility] Last Admin: 08/11/24 07:46 Dose: Not Given Documented By: DAY Non-Admin Reason: Patient Refused Fluconazole (Fluconazole 100 Mg Tablet) 200 mg PO BID [facility] Last Admin: 08/11/24 07:46 Dose: 200 mg Documented By: DAY Magnesium Oxide (Magnesium Oxide 400 Mg Tablet) 400 mg PO BIDPC [facility] Last Admin: 08/11/24 07:46 Dose: 400 mg Documented By: DAY Methadone HCl (Methadone Hcl 20 Mg/2 Ml Oral.Conc) 75 mg PO DAILY@0800 [facility] Last Admin: 08/11/24 07:46 Dose: 75 mg Documented By: DAY Co-signed By: SAMEERA Methadone HCl (Methadone Hcl 20 Mg/2 Ml Oral.Conc) 120 mg PO BEDTIME [facility] Last Admin: 08/10/24 20:13 Dose: 120 mg Documented By: JACKELYN Co-signed By: JESSICA Sodium Chloride (0.9 % Sodium Chloride Flush 3 Ml Syringe) 3 ml IVFLUSH QSHIFT [facility] Last Admin: 08/11/24 07:48 Dose: 3 ml Documented By: DAY Labs 08/04/24 06:43 08/10/24 06:31 Assessment and Plan (1) Bradycardia: Status: Acute (2) Hypomagnesemia: Status: Acute Plan day:10 33-year-old female with a history of IV drug use, hepatitis C, and a recent admission to [facility] (from May 14 to Jun 11) 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 Her hospitalization was complicated by septic shock requiring vasopressors and angioVAC removal of valvular vegetation. She also developed septic emboli resulting in toe ischemia and bilateral loculated pleural effusions. she declined chest tube placement. Vascular Surgery was involved and recommended outpatient follow-up for potential toe amputation after demarcation. Anticoagulation was not completed due to concerns about anemia and bleeding risk. She received 4 weeks of IV penicillin and was discharged home to complete an additional 2 weeks of antibiotics with PO linezolid, though adherence is unclear. She was admitted a second time to [facility] from Jun 17 to July 01 for empayema and was discharged with home with Augmentin. She re-presented at [facility] with fever and shock, was admitted to the ICU, and again required vasopressors and broad-spectrum antibiotics. Blood cultures have since grown yeast and Streptococcus viridans. Her hemodynamic status has stabilized, and she is being transitioned out of the ICU. Plan: intial blood culture strep viridans /yeast( identification pendin) on 08/02 repeat blood cultures negative@48hrs on08/03 off IV caspofungin 08/09,off zosyn and vancomycin on 08/03,continue ceftriaxone 2 g IV daily for Group B Streptococcus bacteremia on 08/03. Mild hypomagnesemia: repleted iv and po moniter. EKG QTC improving Start patient on fluconazole-200 mg bid on 08/09/24. seen by vascular surgery-no acute intervention ,recomended to followup with [facility] outpatient. 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 She was significant right-sided chamber enlargement related to severe TR. Her prognosis poor. Unfortunately she continues to use drugs. Her repeat blood cultures are negative at this point time . cardiology do not think a BENTLEY is going to be of any further clinical value at this point time unless she has recurrent fevers or chills recurrent bacteremia. She has been seen by surgery in the past and felt to be a poor candidate for surgery due to her continued IV drug abuse history with high rates of failure for tricuspid valve repair.Management would be medical. Id follow up for duration of antibiotics. Addiction medicine consult; continue methadone Lovenox for dvt prophylaxis Full code ongoing need : awaiting placement,also need placement place first in order for placing picc for prison antibiotics once have place available for placement . Quality Stroke Does the patient have a stroke diagnosis?: No VTE Prior VTE?: No VTE Risk Level:: Medical - moderate - high VTE Device Contraindication: N/A - Device Ordered VTE Drug Contraindication: N/A - Med Ordered
[2024-08-11] MEDS: methADONE HCl 20 MG/2 ML ORAL.CONC 120 MG PO (21:15)
[2024-08-12 03:10] VITALS: BP 109/71; PULSE 75; RESP 18; TEMP 36.2; O2SAT 97
[2024-08-12 07:07] VITALS: BP 107/61; PULSE 74; RESP 16; TEMP 36; O2SAT 98
[2024-08-12] MEDS: 0.9 % Sodium Chloride Flush 3 ML SYRINGE IVFLUSH ×2 (08:12→17:05)
[2024-08-12] MEDS: methADONE HCl 20 MG/2 ML ORAL.CONC 75 MG PO (08:12)
[2024-08-12] MEDS: Fluconazole 100 MG TABLET 200 MG PO ×2 (08:12→21:07)
[2024-08-12] MEDS: Magnesium Oxide 400 MG TABLET PO ×2 (08:12→17:05)
--- NOTE | 2024-08-12 10:07 | P.PNIM_ITS ---
Subjective Subjective Date of Service: 08/12/24 Interval History: f/u bacteremia, endocarditis Review of Systems no new c/o Physical Exam 2 Vital Signs: Vital Signs: Last Vital Signs Temp 96.8 F 08/12/24 07:07 Pulse 74 08/12/24 07:07 Resp 16 08/12/24 07:07 BP 107/61 08/12/24 07:07 Pulse Ox 98 08/12/24 07:07 O2 Del Method Room Air 08/12/24 07:07 O2 Flow Rate 2 08/02/24 01:31 BMI result Body Mass Index 24.7 General: AO X 3, no acute distress pulm: air entry fair. cardio: rrr,s1s2 heard. GI: +BS, NT, no distention Skin: No rash, some ischemic toes see pic from 08/03 Neuro: motor grossly intact. Objective Data Active Medications Ceftriaxone Sodium (Ceftriaxone Sodium 2 Gm Vial) 2 gm IVPUSH Q24H [facility] Last Admin: 08/11/24 11:37 Dose: 2 gm Documented By: DAY Enoxaparin Sodium (Enoxaparin Sodium 40 Mg/0.4 Ml Syringe) 40 mg SUBCUT Q24H [facility] Last Admin: 08/12/24 08:13 Dose: Not Given Documented By: SAMEERA Non-Admin Reason: Patient Refused Fluconazole (Fluconazole 100 Mg Tablet) 200 mg PO BID [facility] Last Admin: 08/12/24 08:12 Dose: 200 mg Documented By: SAMEERA Magnesium Oxide (Magnesium Oxide 400 Mg Tablet) 400 mg PO BIDPC [facility] Last Admin: 08/12/24 08:12 Dose: 400 mg Documented By: SAMEERA Methadone HCl (Methadone Hcl 20 Mg/2 Ml Oral.Conc) 75 mg PO DAILY@0800 [facility] Last Admin: 08/12/24 08:12 Dose: 75 mg Documented By: SAMEERA Co-signed By: DARWIN Methadone HCl (Methadone Hcl 20 Mg/2 Ml Oral.Conc) 120 mg PO BEDTIME [facility] Last Admin: 08/11/24 21:15 Dose: 120 mg Documented By: SAMANTHA Co-signed By: MACKENZIE Sodium Chloride (0.9 % Sodium Chloride Flush 3 Ml Syringe) 3 ml IVFLUSH QSHIFT [facility] Last Admin: 08/12/24 08:12 Dose: 3 ml Documented By: SAMEERA Labs 08/04/24 06:43 08/10/24 06:31 Assessment and Plan (1) Bradycardia: Status: Acute (2) Hypomagnesemia: Status: Acute Plan day:11 33-year-old female with a history of IV drug use, hepatitis C, and a recent admission to [facility] (from May 14 to Jun 11) 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 Her hospitalization was complicated by septic shock requiring vasopressors and angioVAC removal of valvular vegetation. She also developed septic emboli resulting in toe ischemia and bilateral loculated pleural effusions. she declined chest tube placement. Vascular Surgery was involved and recommended outpatient follow-up for potential toe amputation after demarcation. Anticoagulation was not completed due to concerns about anemia and bleeding risk. She received 4 weeks of IV penicillin and was discharged home to complete an additional 2 weeks of antibiotics with PO linezolid, though adherence is unclear. She was admitted a second time to [facility] from Jun 17 to July 01 for empayema and was discharged with home with Augmentin. She re-presented at [facility] with fever and shock, was admitted to the ICU, and again required vasopressors and broad-spectrum antibiotics. Blood cultures have since grown yeast and Streptococcus viridans. Her hemodynamic status has stabilized, and she is being transitioned out of the ICU. Plan: intial blood culture strep viridans /yeast( identification pendin) on 08/02 repeat blood cultures negative > 5 days Initially was on Vanco but stopped but stopped the next day on 08/03 and started on ceftriaxone 2 g IV daily for Group B Streptococcus bacteremia on 08/03 IV caspofungin 08/03 to 08/09, and changed to Fluconazol on 08/09 EKG QTC prolonged, improving Mild hypomagnesemia: repleted iv and po moniter. Vascular Surgery: No acute intervention needed. Follow-up recommended with [facility] outpatient clinic. Cardiology Evaluation: The patient has severe tricuspid regurgitation due to a flail leaflet, resulting from prior tricuspid valve endocarditis that required non-surgical drainage. She has significant right-sided chamber enlargement associated with the severe regurgitation. Her prognosis is poor. She continues to use IV drugs. Repeat blood cultures are currently negative. Cardiology does not believe a BENTLEY will provide further clinical value unless she develops recurrent fevers, chills, or bacteremia. She was previously evaluated by surgery and deemed a poor surgical candidate for valve due to her ongoing IV drug use and the high failure rate of tricuspid valve repair in such cases. Management will remain medical. Id follow up for duration of antibiotics. Addiction medicine consult; continue methadone Lovenox for dvt prophylaxis Full code ongoing need : awaiting placement,also need placement place first in order for placing picc for termite treater helper antibiotics once have place available for placement . Quality Stroke Does the patient have a stroke diagnosis?: No VTE Prior VTE?: No VTE Risk Level:: Medical - moderate - high VTE Device Contraindication: N/A - Device Ordered VTE Drug Contraindication: N/A - Med Ordered
[2024-08-12 11:02] VITALS: BP 118/71; PULSE 57; RESP 16; TEMP 36; O2SAT 98
[2024-08-12] MEDS: cefTRIAXone sodium 2 GM VIAL IVPUSH (13:55)
[2024-08-12 15:24] VITALS: BP 108/76; PULSE 76; RESP 14; TEMP 36.7; O2SAT 97
[2024-08-12 19:29] VITALS: BP 100/66; PULSE 77; RESP 16; TEMP 36.4; O2SAT 98
[2024-08-12] MEDS: methADONE HCl 20 MG/2 ML ORAL.CONC 120 MG PO (21:07)
[2024-08-12 23:20] VITALS: BP 97/60; PULSE 73; RESP 16; TEMP 36.3; O2SAT 96
[2024-08-13 03:46] VITALS: BP 111/72; PULSE 77; RESP 16; TEMP 36.4; O2SAT 97
[2024-08-13 07:32] VITALS: BP 103/66; PULSE 78; RESP 18; TEMP 36.3; O2SAT 98
[2024-08-13] MEDS: methADONE HCl 20 MG/2 ML ORAL.CONC 75 MG PO (08:27)
[2024-08-13] MEDS: Fluconazole 100 MG TABLET 200 MG PO (08:27)
[2024-08-13] MEDS: Magnesium Oxide 400 MG TABLET PO (08:27)
[2024-08-13] MEDS: 0.9 % Sodium Chloride Flush 3 ML SYRINGE IVFLUSH (08:28)
--- NOTE | 2024-08-13 10:50 | HO.PM.IMPN ---
Subjective Subjective Date of Service: 08/13/24 Interval History: f/u bacteremia, endocarditis Review of Systems no new c/o Physical Exam Vital Signs: Vital Signs: Last Vital Signs Temp 97.4 F 08/13/24 07:32 Pulse 78 08/13/24 07:32 Resp 18 08/13/24 07:32 BP 103/66 08/13/24 07:32 Pulse Ox 98 08/13/24 07:32 O2 Del Method Room Air 08/13/24 07:32 O2 Flow Rate 2 08/02/24 01:31 BMI result Body Mass Index 24.7 General: AO X 3, no acute distress pulm: air entry fair. cardio: rrr,s1s2 heard. GI: +BS, NT, no distention Skin: No rash, some ischemic toes see pic from 08/03, left arm scabs unchanged Neuro: motor grossly intact. Objective Data Active Medications Ceftriaxone Sodium (Ceftriaxone Sodium 2 Gm Vial) 2 gm IVPUSH Q24H [facility] Last Admin: 08/12/24 13:55 Dose: 2 gm Documented By: SAMEERA Enoxaparin Sodium (Enoxaparin Sodium 40 Mg/0.4 Ml Syringe) 40 mg SUBCUT Q24H [facility] Last Admin: 08/13/24 08:28 Dose: Not Given Documented By: TAMY Non-Admin Reason: Patient Refused Fluconazole (Fluconazole 100 Mg Tablet) 200 mg PO BID [facility] Last Admin: 08/13/24 08:27 Dose: 200 mg Documented By: TAMY Magnesium Oxide (Magnesium Oxide 400 Mg Tablet) 400 mg PO BIDPC [facility] Last Admin: 08/13/24 08:27 Dose: 400 mg Documented By: TAMY Methadone HCl (Methadone Hcl 20 Mg/2 Ml Oral.Conc) 75 mg PO DAILY@0800 [facility] Last Admin: 08/13/24 08:27 Dose: 75 mg Documented By: TAMY Co-signed By: WENDY Methadone HCl (Methadone Hcl 20 Mg/2 Ml Oral.Conc) 120 mg PO BEDTIME [facility] Last Admin: 08/12/24 21:07 Dose: 120 mg Documented By: CARL Co-signed By: MACKENZIE Sodium Chloride (0.9 % Sodium Chloride Flush 3 Ml Syringe) 3 ml IVFLUSH QSHIFT [facility] Last Admin: 08/13/24 08:28 Dose: 3 ml Documented By: TAMY Labs 08/04/24 06:43 08/10/24 06:31 Assessment and Plan (1) Bradycardia: Status: Acute (2) Hypomagnesemia: Status: Acute Plan day:11 33-year-old female with a history of IV drug use, hepatitis C, and a recent admission to [facility] (from May 14 to Jun 11) 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 Her hospitalization was complicated by septic shock requiring vasopressors and angioVAC removal of valvular vegetation. She also developed septic emboli resulting in toe ischemia and bilateral loculated pleural effusions. she declined chest tube placement. Vascular Surgery was involved and recommended outpatient follow-up for potential toe amputation after demarcation. Anticoagulation was not completed due to concerns about anemia and bleeding risk. She received 4 weeks of IV penicillin and was discharged home to complete an additional 2 weeks of antibiotics with PO linezolid, though adherence is unclear. She was admitted a second time to [facility] from Jun 17 to July 01 for empayema and was discharged with home with Augmentin. She re-presented at [facility] with fever and shock, was admitted to the ICU, and again required vasopressors and broad-spectrum antibiotics. Blood cultures have since grown yeast and Streptococcus viridans. Her hemodynamic status has stabilized, and she is being transitioned out of the ICU. Plan: intial blood culture strep viridans /yeast( identification pendin) on 08/02 repeat blood cultures negative > 5 days Initially was on Vanco but stopped the next day on 08/03 and started on ceftriaxone 2 g IV daily for Group B Streptococcus bacteremia on 08/03 IV caspofungin given 08/03 to 08/09, and changed to Fluconazol on 08/09 EKG QTC prolonged, improving Mild hypomagnesemia: repleted iv and po moniter. Vascular Surgery: No acute intervention needed. Follow-up recommended with [facility] outpatient clinic. Cardiology Evaluation: The patient has severe tricuspid regurgitation due to a flail leaflet, resulting from prior tricuspid valve endocarditis that required non-surgical drainage. She has significant right-sided chamber enlargement associated with the severe regurgitation. Her prognosis is poor. She continues to use IV drugs. Repeat blood cultures are currently negative. Cardiology does not believe a BENTLEY will provide further clinical value unless she develops recurrent fevers, chills, or bacteremia. She was previously evaluated by surgery and deemed a poor surgical candidate for valve due to her ongoing IV drug use and the high failure rate of tricuspid valve repair in such cases. Management will remain medical. Id follow up for final antibiotics recommendation Addiction medicine consult; continue methadone Lovenox for dvt prophylaxis Full code ongoing need : awaiting placement,also need placement place first in order for placing picc for longterm antibiotics once have place available for placement. She's been having second thoughts about going to rehab and might elect to leave [place] Quality Stroke Does the patient have a stroke diagnosis?: No VTE Prior VTE?: No VTE Risk Level:: Medical - moderate - high VTE Device Contraindication: N/A - Device Ordered VTE Drug Contraindication: N/A - Med Ordered
--- NOTE | 2024-08-13 11:21 | P.DS_ITS ---
DS: Providers Provider Date of Service: 08/13/24 Date of admission: 08/02/24 01:00 Date of discharge: 08/13/24 Primary care physician: None Physician Consults: 08/02/24 06:56 Consult to Wound Care Routine Reason for consultation: Various Skin Integrity Concerns 08/02/24 08:20 Consult to Cardiology Routine Consulting Provider: [facility] Reason for consultation: endocarditis, intermittent Mobitz II Has provider been notified: No 08/03/24 12:53 Consult to Infectious Diseases Routine Consulting Provider: [facility] Reason for consultation: TV endocarditis, bacteremia Has provider been notified: No 08/03/24 13:26 Addiction Medicine Provider Routine Consulting Provider: Addiction Covering Reason for consultation: Opioid use disorder Has provider been notified: No 08/05/24 08:17 Inpt - Recovery Team Routine Comment: Reason for consultation: GERRI eval 08/05/24 09:07 Consult to Vascular Surgery Routine Consulting Provider: [facility] Reason for consultation: ischemic toes DS: Diagnosis Discharge Diagnosis (1) Bradycardia: Status: Acute (2) Hypomagnesemia: Status: Acute DS: Summary Hospital Course Hospital Course: 33-year-old female with a history of IV drug use, hepatitis C, and a recent admission to [facility] (from May 14 to Jun 11) 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 Her hospitalization was complicated by septic shock requiring vasopressors and angioVAC removal of valvular vegetation. She also developed septic emboli resulting in toe ischemia and bilateral loculated pleural effusions. she declined chest tube placement. Vascular Surgery was involved and recommended outpatient follow-up for potential toe amputation after demarcation. Anticoagulation was not completed due to concerns about anemia and bleeding risk. She received 4 weeks of IV penicillin and was discharged home to complete an additional 2 weeks of antibiotics with PO linezolid, though adherence is unclear. She was admitted a second time to [facility] from Jun 17 to July 01 for empayema and was discharged with home with Augmentin. She re-presented at [facility] with fever and shock, was admitted to the ICU, and again required vasopressors and broad-spectrum antibiotics. Blood cultures have since grown yeast and Streptococcus viridans. Her hemodynamic status has stabilized, and she is being transitioned out of the ICU. Plan: intial blood culture strep viridans /yeast( identification pendin) on 08/02 repeat blood cultures negative > 5 days Initially was on Vanco but stopped the next day on 08/03 and started on ceftriaxone 2 g IV daily for Group B Streptococcus bacteremia on 08/03 IV caspofungin given 08/03 to 08/09, and changed to Fluconazol on 08/09 EKG QTC prolonged, improving Mild hypomagnesemia: repleted iv and po moniter. Vascular Surgery: No acute intervention needed. Follow-up recommended with [facility] outpatient clinic. Cardiology Evaluation: The patient has severe tricuspid regurgitation due to a flail leaflet, resulting from prior tricuspid valve endocarditis that required non-surgical drainage. She has significant right-sided chamber enlargement associated with the severe regurgitation. Her prognosis is poor. She continues to use IV drugs. Repeat blood cultures are currently negative. Cardiology does not believe a BENTLEY will provide further clinical value unless she develops recurrent fevers, chills, or bacteremia. She was previously evaluated by surgery and deemed a poor surgical candidate for valve due to her ongoing IV drug use and the high failure rate of tricuspid valve repair in such cases. Management will remain medical. Id follow up for final antibiotics recommendation WHILE IT WAS ADVISED THAT PATIENT GO TO SNF TO FINISH IV ABX, SHE DECLINED THIS AN INSTEAD ELECTED TO LEAVE HOSPITAL AGAINST ADVISE, SHE WAS PRESCRIBED ORAL DIFLUCAN AND ORAL CEFTIN ALTERNATIVE FOR IV CEFTRIAXONE AND ADVISED TO STAY AWAY FROM DRUGS, TAKE MEDICATIONS DIRECTED, AND FOLLOW UP WITH HER DOCTORS, SHE WAS ALERT AND ORIENTED TO SELF, PLACE AND TIME AND UNDERSTOOD, HER CHOICE OF NOT GOING TO SNF FOR IVF ABX COULD LEAD TO SUB STANDARD TREATMENT OF ENDOCARDITIS AND COULD LEAD TO WORSENING OF HER CONDITION, INCLUDING THREATENING HER LIFE AND EVEN THE POSIBILITY OF , SHE WAS ABLE TO SAY THIS BACK IN HER OWN WORDS AND PROCEEDED TO LEAVE [facility]MA Time Attestation Discharge Coordination Time (in mins): 45 Quality: Safe Use of Opioids Does Pt have an Active Cancer Diagnosis on the Problem List?: No Quality: Stroke Does the patient have a stroke diagnosis?: No Physical Exam Vital Signs: Vital Signs: Last Vital Signs Temp 97.4 F 08/13/24 07:32 Pulse 78 08/13/24 07:32 Resp 18 08/13/24 07:32 BP 103/66 08/13/24 07:32 Pulse Ox 98 08/13/24 07:32 O2 Del Method Room Air 08/13/24 07:32 O2 Flow Rate 2 08/02/24 01:31 BMI result Body Mass Index 24.7 DS: Data Data Completed and Pending Completed studies during hospitalization [Text1]: Procedures Introduction of Vasopressor into Peripheral Vein, Percutaneous Approach (05/13/24) Labs on day of discharge: Preliminary micro results at discharge 08/02/24 00:31 Blood Culture - Preliminary Blood - Venous Leslie tropicalis Discharge Plan Discharge Anticipated Discharge Date/Time: 08/13/24 14:31 Patient Disposition: Left Against Medical Advice Discharge Diagnosis: Bacteremia, endocarditis, sepsis Referrals: [facility] [Provider Group] - 08/14/24 (Please present to the clinic, tomorrow morning with your last dose letter to continue methadone) Physician,None [Primary Care Provider] - 1 Week Discharge Medications: New fluconazole 100 mg Tablet 200 mg PO BID Qty: 48 0RF cefuroxime axetil 500 mg tablet 500 mg PO BID 24 Days Qty: 48 0RF Continued pantoprazole 40 mg tablet,delayed release (DR/EC) 40 mg PO DAILY@0630 ferrous sulfate 325 mg (65 mg iron) tablet,delayed release (DR/EC) 325 mg PO DAILY colchicine 0.6 mg tablet 0.6 mg PO BID metoprolol tartrate 25 mg tablet 12.5 mg PO BID methadone [Methadone Intensol] 10 mg/mL Concentrate 65 mg PO DAILY methadone [Methadone Intensol] 10 mg/mL Concentrate 130 mg PO BEDTIME Discharge Orders: Discharge Order (Routine); Ordered 08/13/24 Ordered By: Juvencio Jeffery Diet: Advance to usual diet Activity on Discharge: As tolerated Print Language: Unable To Collect Activity Restrictions/Additional Instructions: Topical Wound Care Recommendations: Bilateral Toes - [place] with Betadine, allow to dry. May cover with dry gauze wrap to protect from environment. Apply Daily. Bilateral Forearms - Cleanse with Ns moist gauze, Allow to dry. Apply skin prep to forearm, cover wound with Hydrocolloid dressing. Change every 3-[address] Garcia Vascular Surgeon for outpatient follow up.? His office is located at [address] [place] [address] [address], [place] [address], call for an appointment at time of discharge [phone] Care Plan Goals: . Health Concerns: Endocarditis Bacteremia Fungemia Plan of Treatment: Take Ceftin and Diflucan as recommended, follow up with your Doctor in a week. You understand you declined to go to skilled facility to complete IV infusion for bacteremia and as second alternative you are been given by mouth antibiotics. It is very important that you take all the medications as prescribed and not skip doses Assessment: see above Discharge Date/Time: 08/13/24 15:30
--- NOTE | 2024-08-13 11:27 | MHC.CM.PN ---
EMR reviewed and per MD rounds, pt is medically cleared for discharge to STR. This CM met with pt to discuss STR options, the closest options for her are in [place] or [place]. Pt states she is not willing to go to a facility that far away. Hospitalist updated.
[2024-08-13 11:33] VITALS: BP 109/59; PULSE 92; RESP 20; TEMP 36; O2SAT 100
[2024-08-13] MEDS: cefTRIAXone sodium 2 GM VIAL IVPUSH (13:12)
--- NOTE | 2024-08-13 13:56 | HO.ADDICTPRO ---
Subjective Subjective Date of Service: 08/13/24 Reason For Visit: AMS/ Hypotension Interim History: Patient seen in follow up for OUD Awaiting transfer to SNF for completing of IV abx. RN notified t/w that patient was requesting to discharge. Met with patient who reported she did not want to go to [place], worried that she would be alone and not be able to have family of her BF visit her. Discussed continuation of antibiotics at home--RN reports they will be brought to her prior to discharge. Discussed presenting to [facility] in AM for continuation of MOUD, patient agreeable. Review of Systems Constitutional: Reports as per HPI and Reports no additional constitutional complaints Mental Status Exam Mental Status Exam Patient Appearance: Well Grooomed and Appropriate Patient Orientation: Person, Place, Time and Situation Level of Consciousness: Awake and Appropriate Patient Behavior: Appropriate and Cooperative Affect Description: Calm Speech Pattern: Clear Thought Process: Intact Thought Content: positive for Intact Judgement: Fair Diagnostics Vital Signs (24Hr): Vital Signs - 24 hr 08/12/24 15:24 08/12/24 19:29 08/12/24 23:20 Temperature 98.1 F 97.6 F 97.4 F Pulse Rate 76 77 73 Respiratory Rate 14 16 16 Blood Pressure 108/76 100/66 97/60 Pulse Oximetry 97 98 96 Oxygen Delivery Method Room Air Room Air Room Air 08/13/24 03:46 08/13/24 07:32 08/13/24 11:33 Temperature 97.6 F 97.4 F 96.8 F Pulse Rate 77 78 92 Respiratory Rate 16 18 20 Blood Pressure 111/72 103/66 109/59 L Pulse Oximetry 97 98 100 Oxygen Delivery Method Room Air Room Air Room Air BMI result Body Mass Index 24.7 Labs 08/04/24 06:43 08/10/24 06:31 Medications Medications Current Medications Ceftriaxone Sodium (Ceftriaxone Sodium 2 Gm Vial) 2 gm IVPUSH Q24H [facility] Last Admin: 08/13/24 13:12 Dose: 2 gm Enoxaparin Sodium (Enoxaparin Sodium 40 Mg/0.4 Ml Syringe) 40 mg SUBCUT Q24H [facility] Last Admin: 08/13/24 08:28 Dose: Not Given Fluconazole (Fluconazole 100 Mg Tablet) 200 mg PO BID [facility] Last Admin: 08/13/24 08:27 Dose: 200 mg Magnesium Oxide (Magnesium Oxide 400 Mg Tablet) 400 mg PO BIDPC [facility] Last Admin: 08/13/24 08:27 Dose: 400 mg Methadone HCl (Methadone Hcl 20 Mg/2 Ml Oral.Conc) 75 mg PO DAILY@0800 [facility] Last Admin: 08/13/24 08:27 Dose: 75 mg Methadone HCl (Methadone Hcl 20 Mg/2 Ml Oral.Conc) 120 mg PO BEDTIME [facility] Last Admin: 08/12/24 21:07 Dose: 120 mg Methadone HCl (Methadone Hcl 20 Mg/2 Ml Oral.Conc) 60 mg PO ONCE ONE Stop: 08/13/24 13:55 Sodium Chloride (0.9 % Sodium Chloride Flush 3 Ml Syringe) 3 ml IVFLUSH QSHIFT [facility] Last Admin: 08/13/24 08:28 Dose: 3 ml Allergies Allergies Allergy/AdvReac Type Severity Reaction Status Date / Time quetiapine [From Seroquel] AdvReac Dizziness Verified 08/01/24 22:29 Assessment & Plan Assessment & Plan (1) Opioid use disorder, severe, dependence: Status: Acute Code(s): F11.20 - Opioid dependence, uncomplicated Assessment and Plan: 60mg methadone prior to d/c last dose letter provided to patient will send updated clinical information to [facility] overdose prevention and safer use discussion--patient hesitant to discuss stating, I am afraid to use again Total time managing care of this patient today __30__ minutes.
[2024-08-13] MEDS: Naloxone HCl Nasal TAKE HOME 4 MG SPRAY 8 MG NOSTRILALT (15:23)
[2024-08-13] MEDS: methADONE HCl 20 MG/2 ML ORAL.CONC 60 MG PO (15:23)
--- NOTE | 2024-08-14 08:16 | MHC.RECOVRN ---
Pts information sent to [facility]. Pt to return to [facility] after discharge.
== END 2024-08-13 15:30 | disposition left against medical advice (07) | DRG 720 ==
LOC: HO.ED 08-02 01:18 → HO.EDOVER 08-02 01:23 → HO.ICU 08-02 02:18 → HO.IMC 08-03 13:09
PROVIDERS: Internal Medicine; Internal Medicine Pulmonary Disease; Admitting Provider Registered Nurse Community Health; Emergency Provider Emergency Medicine; Visit Provider Internal Medicine
DX: A41.9 Sepsis, unspecified organism (principal); J96.01 Acute respiratory failure with hypoxia; R65.21 Severe sepsis with septic shock; G92.8 Other toxic encephalopathy; I74.3 Embolism and thrombosis of arteries of the lower extremities; J91.8 Pleural effusion in other conditions classified elsewhere; I96 Gangrene, not elsewhere classified; B37.7 Candidal sepsis; E83.42 Hypomagnesemia; J18.9 Pneumonia, unspecified organism; B95.4 Other streptococcus as the cause of diseases classified elsewhere; I07.1 Rheumatic tricuspid insufficiency; F19.10 Other psychoactive substance abuse, uncomplicated; F11.20 Opioid dependence, uncomplicated; Z91.199 Patient's noncompliance with other medical treatment and regimen due to unspecified reason; Z20.822 Contact with and (suspected) exposure to COVID-19; Z79.899 Other long term (current) drug therapy
CPT/HCPCS: 0241U; 36415; 71045; 71250; 74176; 80048; 80053; 80076; 80143; 80179; 80202; 80307; 82040; 82140; 82247; 82550; 82803; 82947; 83605; 83690; 83735; 84100; 84132; 84484; 84702; 85025; 85610; 85730; 87040; 87077; 87086; 87186; 87205; 87389; 87522; 93005; 93306; 99285; J0131; J0637; J0692; J0696; J1450; J1650; J1790; J2250; J2543; J3370; J3475; J3480; J7120; P9047; S9485

== ENCOUNTER → 2024-08-01 22:50 | Outpatient (BNV) | payer OTHER, SELFPAY | PROVIDERS: Admitting Provider Registered Nurse Community Health; Emergency Provider Emergency Medicine; Visit Provider Internal Medicine Cardiovascular Disease | DX: R94.31 Abnormal electrocardiogram [ECG] [EKG] (principal) | CPT/HCPCS: 93010 ==

== ENCOUNTER → 2024-08-02 00:20 | Outpatient (BNV) | payer MEDICAID, SELFPAY | PROVIDERS: Admitting Provider Registered Nurse Community Health; Emergency Provider Emergency Medicine; Visit Provider Radiology Diagnostic Radiology | DX: R16.0 Hepatomegaly, not elsewhere classified (principal); J90 Pleural effusion, not elsewhere classified; R59.0 Localized enlarged lymph nodes; R91.8 Other nonspecific abnormal finding of lung field | CPT/HCPCS: 71045; 71250; 74176 ==

== ENCOUNTER 2024-08-02 01:00 | Outpatient (BNV) | payer OTHER, SELFPAY | END 2024-08-09 13:08 | PROVIDERS: Admitting Provider Registered Nurse Community Health; Emergency Provider Emergency Medicine; Visit Provider Internal Medicine Cardiovascular Disease | DX: R94.31 Abnormal electrocardiogram [ECG] [EKG] (principal); Z13.6 Encounter for screening for cardiovascular disorders | CPT/HCPCS: 93010 ==

== ENCOUNTER 2024-08-02 01:00 | Outpatient (BNV) | payer OTHER, SELFPAY | END 2024-08-08 16:36 | PROVIDERS: Admitting Provider Registered Nurse Community Health; Emergency Provider Emergency Medicine; Visit Provider Internal Medicine Cardiovascular Disease | DX: R94.31 Abnormal electrocardiogram [ECG] [EKG] (principal); Z13.6 Encounter for screening for cardiovascular disorders | CPT/HCPCS: 93010 ==

== ENCOUNTER → 2024-08-02 01:00 | Outpatient (BNV) | payer OTHER, SELFPAY | PROVIDERS: Admitting Provider Registered Nurse Community Health; Emergency Provider Emergency Medicine; Visit Provider Internal Medicine | DX: F19.90 Other psychoactive substance use, unspecified, uncomplicated (principal); A41.9 Sepsis, unspecified organism; R78.81 Bacteremia; R65.21 Severe sepsis with septic shock; I96 Gangrene, not elsewhere classified | CPT/HCPCS: 99233; 99499 ==

== ENCOUNTER → 2024-08-02 01:00 | Outpatient (BNV) | payer OTHER, SELFPAY | PROVIDERS: Admitting Provider Registered Nurse Community Health; Emergency Provider Emergency Medicine; Visit Provider Internal Medicine Pulmonary Disease | DX: I38 Endocarditis, valve unspecified (principal); F19.10 Other psychoactive substance abuse, uncomplicated; B18.2 Chronic viral hepatitis C | CPT/HCPCS: 99232 ==

== ENCOUNTER → 2024-08-02 01:00 | Outpatient (BNV) | payer OTHER, SELFPAY | PROVIDERS: Admitting Provider Registered Nurse Community Health; Emergency Provider Emergency Medicine; Visit Provider Internal Medicine | DX: I38 Endocarditis, valve unspecified (principal); I96 Gangrene, not elsewhere classified; I50.810 Right heart failure, unspecified | CPT/HCPCS: 99222 ==

== ENCOUNTER → 2024-08-02 01:00 | Outpatient (BNV) | payer MEDICAID, SELFPAY | PROVIDERS: Admitting Provider Registered Nurse Community Health; Emergency Provider Emergency Medicine; Visit Provider Registered Nurse Community Health | DX: A41.9 Sepsis, unspecified organism (principal); R65.21 Severe sepsis with septic shock; G92.9 Unspecified toxic encephalopathy; F19.10 Other psychoactive substance abuse, uncomplicated; I70.208 Unspecified atherosclerosis of native arteries of extremities, other extremity; I33.0 Acute and subacute infective endocarditis; I95.9 Hypotension, unspecified; I50.810 Right heart failure, unspecified; I96 Gangrene, not elsewhere classified | CPT/HCPCS: 99291 ==

== ENCOUNTER → 2024-08-02 01:00 | Outpatient (BNV) | payer OTHER, SELFPAY | PROVIDERS: Admitting Provider Registered Nurse Community Health; Emergency Provider Emergency Medicine; Visit Provider Nurse Practitioner Psychiatric/Mental Health | DX: F11.20 Opioid dependence, uncomplicated (principal) | CPT/HCPCS: 99232 ==

== ENCOUNTER → 2024-08-02 01:00 | Outpatient (BNV) | payer OTHER, SELFPAY | PROVIDERS: Admitting Provider Registered Nurse Community Health; Emergency Provider Emergency Medicine; Visit Provider Physician Assistant Surgical | DX: I74.3 Embolism and thrombosis of arteries of the lower extremities (principal); I70.208 Unspecified atherosclerosis of native arteries of extremities, other extremity | CPT/HCPCS: 99222; 99232 ==

== ENCOUNTER → 2024-08-02 01:00 | Outpatient (BNV) | payer OTHER, SELFPAY | PROVIDERS: Admitting Provider Registered Nurse Community Health; Emergency Provider Emergency Medicine; Visit Provider Internal Medicine Cardiovascular Disease | DX: F19.10 Other psychoactive substance abuse, uncomplicated (principal); R00.1 Bradycardia, unspecified | CPT/HCPCS: 99223 ==

== ENCOUNTER 2025-01-28 16:26 | Emergency (ER) | payer OTHER, SELFPAY ==
--- NOTE | ~2025-01-28 | XR_ITS ---
CLINICAL HISTORY: pain 1 view chest x-ray Comparison: CT/SR - CT CHEST WO IV CON - 08/02/24 02:08 EDT Findings: Right lower lobe ground-glass opacity. Heart size is normal. No acute fracture. Axial pleural effusion identified. No radiopaque foreign object. IMPRESSION: 1. Right lower lobe pneumonia. This document has been electronically signed by: Jhon Persaud MD on 01/28/2025 20:08:52
--- NOTE | ~2025-01-28 | XR_ITS ---
CLINICAL HISTORY: r o foriegn body --- Additional Notes or Special Instructions: nurse will let us know when ready. @1815 1 view abdomen Comparison: None provided Findings: No pneumoperitoneum or pneumatosis. No abnormal calcifications. No acute fractures. IMPRESSION: Normal bowel gas pattern This document has been electronically signed by: Jhon Persaud MD on 01/28/2025 20:02:15
[2025-01-28 16:34] VITALS: BP 107/69; BP 122/71; PULSE 87; PULSE 98; RESP 20; TEMP 36.8; O2SAT 95; O2SAT 99; BMI 21.6
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
--- NOTE | 2025-01-28 17:10 | ECG_ITS ---
Test Reason : PAIN Blood Pressure : */* mmHG Vent. Rate : 83 BPM Atrial Rate : 83 BPM P-R Int : 162 ms QRS Dur : 86 ms QT Int : 390 ms P-R-T Axes : 70 -4 34 degrees QTcB Int : 458 ms Normal sinus rhythm Possible Left atrial enlargement Borderline ECG When compared with ECG of 09-Aug-2024 13:08, Questionable change in QRS axis Nonspecific T wave abnormality, improved in Inferior leads T wave inversion no longer evident in Lateral leads Referred By: Jett Rosenthal Electronically Signed By: JANE LEE MD
--- NOTE | 2025-01-28 17:30 | PC.NURSE ---
Pt agitated and screaming despite verbal deescalation attempts. Pt agreeable to PO medication for anxiety per PA. Continuing to monitor.
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
--- OUTSIDE RECORDS SUMMARY | 2025-01-28 18:59 | XMS_ITS | Clinical Summary ---
Author Organization [facility] Address [address] [place] [address] Phone Care Team Providers Care Linux Security Administrator Name Role Phone Unavailable Primary Care Provider Unavailabl e Medications colchicine (MITIGARE) 0.6 mg capsule capsule Take 1 capsule (0.6 mg total) by mouth 2 (two) times a day. Active ferrous sulfate 325 mg (65 mg iron) EC tablet Take 1 tablet (325 mg total) by mouth 1 (one) time each day. Do not crush, chew, or split. Active methadone HCl (METHADONE, BULK, MISC) 195 mg 1 (one) time each day in the morning. Max Daily Amount: 195 mg Active metoprolol tartrate (LOPRESSOR) 25 mg tablet Take 0.5 tablets (12.5 mg total) by mouth 2 (two) times a day. Active pantoprazole (PROTONIX) 40 mg EC tablet Take 1 tablet (40 mg total) by mouth 1 (one) time each day. Do not crush, chew, or split. Active Active Problems Problem Noted Date Diagnosed Date Acidosis 07/31/2024 Hypoglycemia 07/31/2024 Opiate use 07/31/2024 Endocarditis 07/24/2024 Loculated pleural effusion 07/24/2024 Medical History Medical History Date Comments AMS (altered mental status) Opioid use disorder Hypoglycemia Ischemic toe Lactic acid acidosis Sepsis ([facility]/HCC V24, CMS/HCC V28) Anxiety Asthma Anemia Social History Tobacco Use Types Packs/Day Years Used Date Smoking Tobacco: Never Assessed Comments Unknown Sex and Gender Information Value Date Recorded Sex Assigned at Not on file Legal Sex Female 4:25 AM EST Gender Identity Not on file Sexual Orientation Not on file Obstetrics History Plan of Treatment Health Maintenance Due Date Last Done Comments DTaP,Tdap,and Td Vaccines (1 - Tdap) 2009 Hepatitis B Vaccines (1 of 3 - 19+ 3-dose series) 2009 Cervical Cancer Screening: P ap Smear 11/17/2011 HPV Vaccines (1 - 3-dose SCD M series) 2017 Depression Screening 04/24/2024 HIV Screening 06/20/2024 Hepatitis C Screening 06/20/2024 Social Influencers of Health Screening 06/20/2024 COVID-19 Vaccine (1 - 2023-2 5 season) 2024 Influenza Vaccine (#1) 2024 RSV Immunization Adult Patie nts (1 - 1-dose 75+ series) 2065 HIB Vaccines Aged Out No longer eligi ble based on patient's age to complete this topic Hepatitis A Vaccines Aged Out No long er eligible based on patient's age to complete this topic IPV Vaccines Aged Out No longer eligi ble based on patient's age to complete this topic MMR Vaccines Aged Out No longer eligi ble based on patient's age to complete this topic Meningococcal ACWY Vaccine Aged Out N o longer eligible based on patient's age to complete this topic Meningococcal B Vaccine Aged Out No l onger eligible based on patient's age to complete this topic Pneumococcal Vaccine: Pediat rics (0 to 5 Years) and At-Risk Patients (6 to 49 Years) Aged Out No longer eligible b ased on patient's age to complete this topic RSV Immunization Patients Un chanelle 20 months Aged Out No longer eligible b ased on patient's age to complete this topic Varicella Vaccines Aged Out No longer eligible based on patient's age to complete this topic Insurance [facility] [place] [address] MEDICAID - [place]
[2025-01-28 19:59] LABS: MANUAL DIFF FLAG NO
[2025-01-28 20:00] LABS: Hematocrit 32.6 % (37.0-47.0); Hemoglobin 11.2 g/dl (12.0-16.0); Imm Gran Abs Auto 0.01 X10*3/uL (0.00-0.03); Imm Gran Pct Auto 0.2 % (0.0-0.4); Lymphocytes Absolute Auto 2.5 X10*3/uL (1.2-4.9); Mean Corpuscular HGB Conc 34.4 g/dl (31.0-35.0); Mean Corpuscular Hemoglobin 27.9 pg (27.0-33.0); Mean Corpuscular Volume 81.1 fL (80.0-98.0); NRBC Abs Auto 0.000 X10*3/uL (0.0-0.012); NRBC Pct Auto 0.0 /100WBC (0.0-0.2); Platelet Count 190 X10*3/uL (160-400); Red Blood Count 4.02 X10*6/uL (4.20-5.50); White Blood Count 5.3 X10*3/uL (4.8-10.8)
[2025-01-28 20:12] LABS: Appearance Urine Cloudy; Glucose Urine UA Negative (Negative); PH 5.5 (5.0-9.0); Specific Gravity - Urine 1.020 (1.005-1.025); UMIC TRIGGER UACC YES
[2025-01-28 20:14] LABS: COVID-19 Test Negative (Negative); IDNOW Serial# 55D5AD1C
[2025-01-28 20:17] LABS: Alanine Aminotransferase 57 U/L (0-31); Albumin Level 3.9 g/dL (3.5-5.0); Alkaline Phosphatase 119 U/L (39-117); Anion Gap 11 (12-20); Aspartate Amino Transferase 50 U/L (5-31); Blood Urea Nitrogen 15 mg/dL (9-16); Calcium 8.8 mg/dL (8.4-10.2); Carbon Dioxide 24 mmol/L (22-29); Chloride 111 mmol/L (96-108); Creatinine Clr Calc Pharmacy 77.5; Estimated Glomerular Filt Rate > 60; Lipase 10 U/L (8-78); Potassium 3.4 mmol/L (3.3-5.1); Sodium 143 mmol/L (135-145); Total Protein 7.4 g/dL (6.5-8.0)
[2025-01-28 20:21] LABS: Cannabinoid Screen Urine Not Detected (Not Detect)
[2025-01-28 20:25] LABS: Troponin-I High Sensitivity < 2.7 ng/L (<3.5-17.0)
[2025-01-28 20:28] LABS: UACC Culture Trigger YES
[2025-01-28 20:30] VITALS: BP 91/49; PULSE 67; RESP 15; TEMP 36.8; O2SAT 99
--- NOTE | 2025-01-28 20:40 | PC.NURSE ---
Pt states she no longer wants SANE exam, requesting urine be sent for STI testing. PA aware, awaiting new urine sample. Pt given water and alfa stan.
[2025-01-28 21:00] VITALS: BP 92/60; PULSE 66; RESP 11; O2SAT 95
--- NOTE | 2025-01-28 22:00 | PC.NURSE ---
Pt unable to provide another urine sample, PA aware. Treating pt prophylactically. Pt up for d/c. Ambulates w/steady gait, aaox4.
[2025-01-28] MEDS: cefTRIAXone sodium 500 MG, Lidocaine HCl 1 % MPF 1 ML IM (22:05)
[2025-01-28 22:16] VITALS: BP 104/63; PULSE 67; RESP 13; TEMP 36.8; O2SAT 97
== END 2025-01-28 22:17 ==
PROVIDERS: Physician Assistant; Emergency Provider Emergency Medicine
DX: R07.9 Chest pain, unspecified (principal); N39.0 Urinary tract infection, site not specified; F19.10 Other psychoactive substance abuse, uncomplicated
CPT/HCPCS: 71045; 74018; 80053; 80307; 81001; 82550; 83605; 83690; 84484; 85025; 87040; 87086; 87088; 87186; 87635; 93005; 96372; 99284; 99285; J0696; J2003

== ENCOUNTER → 2025-01-28 17:09 | Outpatient (BNV) | payer OTHER, SELFPAY | PROVIDERS: Emergency Provider Emergency Medicine; Visit Provider Radiology Diagnostic Radiology | DX: Z03.89 Encounter for observation for other suspected diseases and conditions ruled out (principal); J18.9 Pneumonia, unspecified organism | CPT/HCPCS: 71045; 74018 ==

== ENCOUNTER → 2025-01-28 17:10 | Outpatient (BNV) | payer OTHER, SELFPAY | PROVIDERS: Emergency Provider Emergency Medicine; Visit Provider Internal Medicine Cardiovascular Disease | DX: R07.9 Chest pain, unspecified (principal) | CPT/HCPCS: 93010 ==